=== PATIENT | male | born 1980 | race Caucasian/White ===

== ENCOUNTER 2017-12-08 15:25 | Emergency (ER) | payer SELFPAY ==
[2017-12-08] MEDS ORDERED: ASPIRIN 81 MG CHEWABLE TABLET ONE (16:10)
--- NOTE | 2017-12-08 16:16 | RAD REPORT ---
EXAM DESCRIPTION: RAD - Chest Single View - 12/08/2017 4:05 pm CLINICAL HISTORY: Shortness of breath. COMPARISON: 01/21/2014 FINDINGS: Portable technique limits examination quality. The lungs are grossly clear. The heart is normal in size. No displaced fractures. IMPRESSION: No acute intrathoracic process suspected.
[2017-12-08] MEDS ORDERED: NA CHLORIDE 0.9% 1,000 ML ONE (16:18)
[2017-12-08] MEDS ORDERED: ALBUTEROL 2.5 MG/3 ML NEB SOL ONE (16:18)
[2017-12-08 16:25] LABS: Absolute Lymphocytes (CBC) 2.2 K/uL (0.7-4.9); Absolute Monocytes 0.3 K/uL (0.1-1.3); Absolute Neutrophil 4.5 K/uL (1.8-8.0); Basophils % 1.1 % (0-1.3); Eosinophils % 3.5 % (0-4.4); Hematocrit 47.8 % (39.6-49.0); Lymphocytes % 29.9 % (15.3-44.8); MCH 30.7 pg (27.0-35.0); MCV 92.2 fL (80-100); MPV 8.8 fL (7.6-11.3); Monocytes % 4.7 % (3.3-12.3); RBC Red Blood Cell Count 5.19 M/uL (4.33-5.43)
[2017-12-08 16:28] LABS: Protime INR 1.03
[2017-12-08 16:39] LABS: CKMB Creatine Kinase MB 2.4 ng/ml (0.3-4.0)
[2017-12-08 16:47] LABS: Potassium 3.8 mEq/L (3.6-5.0)
[2017-12-08 16:53] LABS: Bilirubin Direct 0.1 mg/dL (0-0.2); Bilirubin Total 0.7 mg/dL (0.3-1.2); Magnesium 1.8 mg/dL (1.8-2.5); Protein, Total 6.9 g/dL (6.0-8.3)
--- NOTE | 2017-12-08 18:42 | ER ---
Nurse's Notes [facility] Name: Jae Heredia Age: 37 yrs Sex: Male : 1980 Arrival Date: 12/08/2017 Time: 15:26 Bed 8 Private MD: Diagnosis: Elevated blood-pressure reading, without diagnosis of hypertension;Other chest pain;Shortness of breath Presentation: 12/08 15:31 Presenting complaint: Patient states: Patient checked his blood pressure at [facility] and noticed it was high. Patient than began sweating and feeling shaky and diaphoretic. Transition of care: patient was not received from another setting of care. Onset of symptoms was December 08, 2017. Care prior to arrival: None. 15:31 Method Of Arrival: Ambulatory 15:31 Acuity: KELLIE 3 Triage Assessment: 15:33 General: Appears in no apparent distress. comfortable, Behavior is cooperative, aj appropriate for age, anxious. Pain: Complains of pain in chest Pain currently is 8 out of 10 on a pain scale. Neuro: Level of Consciousness is awake, alert, obeys commands, Oriented to person, place, time, situation. Cardiovascular: Reports chest pain, Capillary refill < 3 seconds in bilateral fingers Patient's skin is warm and dry. Respiratory: Airway is patent Respiratory effort is even, unlabored, Respiratory pattern is regular, symmetrical. Derm: Skin is intact, is healthy with good turgor, Skin is pink, warm \T\ dry. normal. Historical: - Allergies: 15:33 No Known Allergies; aj - Home Meds: 15:33 None [Active]; aj - PMHx: 15:33 None; - PSHx: 15:33 Right wrist; aj - Immunization history:: Adult Immunizations up to date. - Social history:: Smoking status: Patient uses tobacco products, smokes two packs cigarettes per day. Screenin:40 Abuse screen: Denies threats or abuse. Denies injuries from another. Nutritional sg screening: No deficits noted. Tuberculosis screening: No symptoms or risk factors identified. Never had TB. Fall Risk None identified. Assessment: 15:40 General: Appears in no apparent distress. comfortable, well groomed, well developed, sg well nourished, Behavior is calm, cooperative, appropriate for age. Pain: Denies pain. Neuro: Level of Consciousness is awake, alert, obeys commands, Oriented to person, place, time, Research Rn Spec are equal bilaterally Moves all extremities. Full function Speech is normal. Cardiovascular: Reports chest tightness and weakness Capillary refill is brisk in bilateral fingers Patient's skin is warm and dry. Respiratory: Airway is patent Respiratory effort is even, unlabored, Respiratory pattern is regular, symmetrical. GI: No signs and/or symptoms were reported involving the gastrointestinal system. : No signs and/or symptoms were reported regarding the genitourinary system. EENT: No deficits noted. No signs and/or symptoms were reported regarding the EENT system. Derm: Skin is pink, warm \T\ dry. Rash noted that is red, on to face. Musculoskeletal: Circulation, motion, and sensation intact. Capillary refill is brisk, in bilateral fingers. Range of motion: intact in all extremities, Swelling absent. 15:50 Pain: Pain does not radiate. sg 18:10 Reassessment: Patient appears in no apparent distress at this time. Patient and/or sg family updated on plan of care and expected duration. Pain level reassessed. Patient is alert, oriented x 3, equal unlabored respirations, skin warm/dry/pink. pt requesting DC to home, Juan M to update pt on vs and the need for repeat tests prior to dc to home, pt stated understanding, but refusing the repeat testing at this time Patient denies pain at this time. Patient states feeling better. Vital Signs: 15:33 BP 158 / 102; Pulse 102; Resp 19; Temp 98.3; Pulse Ox 96% on R/A; Weight 127.01 kg; aj Height 6 ft. 3 in. (190.50 cm); Pain 8/10; 16:35 BP 142 / 90 RA Sitting; Pulse 100 MON; sg 16:38 BP 139 / 92 LA Sitting; Pulse 99; Resp 17; Pulse Ox 96% on R/A; sg 15:33 Body Mass Index 35.00 (127.01 kg, 190.50 cm) aj ED Course: 15:26 Patient arrived in ED. as 15:32 Triage completed. aj 15:33 Arm band placed on left wrist. Patient placed in an exam room. aj 15:36 Silvestre Gruber PA is PHCP. cp 15:37 Eyal Prado MD is Attending Physician. cp 15:40 Patient has correct armband on for positive identification. Bed in low position. Call sg light in reach. Side rails up X2. 15:41 No provider procedures requiring assistance completed. sg 15:44 Jeffery Castaneda, RN is Primary Nurse. sg 16:01 X-ray completed. Portable x-ray completed in exam room. Patient tolerated procedure bb2 well. 16:03 XRAY Chest (1 view) In Process Unspecified. EDMS 16:07 EKG done, by lidar technician. reviewed by Silvestre MACHADO. at1 16:15 Inserted saline lock: 20 gauge in right antecubital area, using aseptic technique. sg Blood collected. 18:30 IV discontinued, intact, bleeding controlled, No redness/swelling at site. Pressure sg dressing applied, IV dc'd by demonstrator sewing techniqueslayo Borden. 18:42 Jose Hernandez MD is Referral Physician. cp Administered Medications: 15:58 Drug: Aspirin Chewable Tablet 324 mg Route: PO; sg 16:07 Drug: NS 0.9% 1000 ml Route: IV; Rate: 1 bolus; Site: right antecubital; sg 16:08 Drug: Albuterol 2.5 mg Route: Inhalation; sg Outcome: 18:39 AMA AMA form signed sg 18:39 Condition: good 18:39 Instructed on discharge instructions. 18:54 Patient left the ED. sg Signatures: Dispatcher [employer] EDMS Jeffery Castaneda RN RN sg Myers, Amanda, RN RN aj Martinez, Amelia as gonzales, Amanda, [employer] EKG Tat1 Silvestre Gruber PA PA cp Franci Cisneros bb2
--- NOTE | 2017-12-08 18:42 | EDPHYS ---
Physician Documentation [facility] Name: Jae Heredia Age: 37 yrs Sex: Male : 1980 Arrival Date: 12/08/2017 Time: 15:26 Bed 8 Private MD: ED Physician Eyal Prado HPI: 12/08 15:53 This 37 yrs old Male presents to ER via Ambulatory with complaints of Chest cp Tightness, High Blood Pressure, Weakness. 15:55 The patient has shortness of breath with light activity. cp 15:55 Onset: The symptoms/episode began/occurred 2 week(s) ago. Duration: The symptoms are cp continuous. Associated signs and symptoms: Pertinent positives: chest tightness started today and elevated blood pressure, Pertinent negatives: non-productive cough, diaphoresis, dizziness, fever. Severity of symptoms: in the emergency department the symptoms are unchanged. Historical: - Allergies: 15:33 No Known Allergies; aj - Home Meds: 15:33 None [Active]; aj - PMHx: 15:33 None; aj - PSHx: 15:33 Right wrist; aj - Immunization history:: Adult Immunizations up to date. - Social history:: Smoking status: Patient uses tobacco products, smokes two packs cigarettes per day. ROS: 16:00 Constitutional: Negative for body aches, chills, fever, poor PO intake. cp 16:00 Eyes: Negative for injury, pain, redness, and discharge. cp 16:00 ENT: Negative for drainage from ear(s), ear pain, sore throat, difficulty swallowing, difficulty handling secretions. 16:00 Cardiovascular: Positive for chest tightness, Negative for edema, palpitations. 16:00 Respiratory: Positive for shortness of breath, Negative for cough. 16:00 Abdomen/GI: Negative for abdominal pain, vomiting, diarrhea, constipation, black/tarry stool, rectal bleeding. 16:00 Back: Negative for pain at rest, pain with movement, radiated pain. 16:00 Skin: Negative for cellulitis, rash. 16:00 Neuro: Negative for altered mental status, dizziness, headache, syncope, near syncope, weakness. 16:00 All other systems are negative. Exam: 15:50 ECG was reviewed by the Attending Physician. cp 16:05 Constitutional: The patient appears in no acute distress, alert, awake, cp non-diaphoretic, non-toxic, well developed, well nourished. 16:05 Head/Face: Normocephalic, atraumatic. Eyes: Pupils equal round and reactive to light, cp extra-ocular motions intact. Lids and lashes normal. Conjunctiva and sclera are non-icteric and not injected. Cornea within normal limits. Periorbital areas with no swelling, redness, or edema. ENT: Nares patent. No nasal discharge, no septal abnormalities noted. Tympanic membranes are normal and external auditory canals are clear. Oropharynx with no redness, swelling, or masses, exudates, or evidence of obstruction, uvula midline. Mucous membranes moist. Neck: Trachea midline, no thyromegaly or masses palpated, and no cervical lymphadenopathy. Supple, full range of motion without nuchal rigidity, or vertebral point tenderness. No Meningismus. Chest/axilla: Normal chest wall appearance and motion. Nontender with no deformity. No lesions are appreciated. 16:05 Cardiovascular: Rate: tachycardic, Rhythm: regular, Pulses: Pulses are 2+ in right radial artery and left radial artery. Edema: is not appreciated, JVD: is not appreciated. 16:05 Respiratory: the patient does not display signs of respiratory distress, Respirations: normal, no use of accessory muscles, no retractions, no splinting, no tachypnea, labored breathing, is not present, Breath sounds: bronchial sounds, are not appreciated, decreased breath sounds, are not appreciated, stridor, is not appreciated, wheezing: that is mild, is heard diffusely. 16:05 Abdomen/GI: Inspection: abdomen appears normal, Bowel sounds: active, all quadrants, Palpation: abdomen is soft and non-tender, in all quadrants, rebound tenderness, is not appreciated, voluntary guarding, is not appreciated, involuntary guarding, is not appreciated. 16:05 Back: pain, is absent, ROM is normal. 16:05 Skin: cellulitis, is not appreciated, no rash present. 16:05 Neuro: Orientation: to person, place \T\ time. Mentation: is normal, Cerebellar function: is grossly normal, Motor: is normal, Sensation: no obvious gross deficits. Vital Signs: 15:33 BP 158 / 102; Pulse 102; Resp 19; Temp 98.3; Pulse Ox 96% on R/A; Weight 127.01 kg; aj Height 6 ft. 3 in. (190.50 cm); Pain 8/10; 16:35 BP 142 / 90 RA Sitting; Pulse 100 MON; sg 16:38 BP 139 / 92 LA Sitting; Pulse 99; Resp 17; Pulse Ox 96% on R/A; sg 15:33 Body Mass Index 35.00 (127.01 kg, 190.50 cm) aj MDM: 15:43 Patient medically screened. cp 16:00 The patient's pulmonary embolism risk score was calculated as follows: the patients cp heart rate is greater than 100 beats per minute (1.5 Pts). 16:00 Differential diagnosis: asthma, Bronchitis CHF exacerbation, Chronic Obstructive cp Pulmonary Disease Myocardial Infarction pneumonia, pulmonary edema, Pulmonary Embolism Unstable Angina. 17:20 Data reviewed: vital signs, nurses notes, lab test result(s), EKG, radiologic studies, cp plain films. 17:20 Test interpretation: by ED physician or midlevel provider: ECG, plain radiologic cp studies. 18:40 Refusal of service: The patient/guardian displays adequate decision making capability cp and despite a detailed discussion of alternatives, benefits, risks, and consequences refuses: repeat 4 hr EKG and troponin level. 12/08 15:47 Order name: Basic Metabolic Panel; Complete Time: 17:13 cp 12/08 17:13 Interpretation: Normal except: CL 100; GLUC 238; CRE 1.31; GFR 61. cp 12/08 15:47 Order name: BNP; Complete Time: 17:13 cp 12/08 15:47 Order name: CBC with Diff; Complete Time: 17:13 cp 12/08 15:47 Order name: Ckmb; Complete Time: 17:13 cp 12/08 15:47 Order name: CPK; Complete Time: 17:13 cp 12/08 15:47 Order name: LFT's; Complete Time: 17:13 cp 12/08 15:47 Order name: Magnesium; Complete Time: 17:13 cp 12/08 15:47 Order name: PT-INR; Complete Time: 17:13 cp 12/08 15:47 Order name: Ptt, Activated; Complete Time: 17:13 cp 12/08 15:47 Order name: Troponin (emerg Dept Use Only); Complete Time: 17:13 cp 12/08 17:14 Interpretation: TROPED < 0.03; Reviewed. cp 12/08 15:47 Order name: XRAY Chest (1 view); Complete Time: 17:13 12/08 15:47 Order name: EKG; Complete Time: 15:48 12/08 15:47 Order name: Cardiac monitoring; Complete Time: 17:17 12/08 15:47 Order name: EKG - Nurse/Tech; Complete Time: 17:17 12/08 15:47 Order name: IV Saline Lock; Complete Time: 17:17 12/08 15:47 Order name: Labs collected and sent; Complete Time: 17:17 12/08 15:47 Order name: O2 Per Protocol; Complete Time: 15:49 cp 12/08 15:47 Order name: O2 Sat Monitoring; Complete Time: 15:49 cp EC:50 Rate is 98 beats/min. Rhythm is regular. IA interval is normal. QRS interval is normal. cp QT interval is normal. No ST changes noted. Interpreted by me. Reviewed by me. Administered Medications: 15:58 Drug: Aspirin Chewable Tablet 324 mg Route: PO; sg 16:07 Drug: NS 0.9% 1000 ml Route: IV; Rate: 1 bolus; Site: right antecubital; sg 16:08 Drug: Albuterol 2.5 mg Route: Inhalation; sg Disposition: 12/08/17 18:42 Patient has left against medical advice. Impression: Elevated blood-pressure reading, without diagnosis of hypertension, Other chest pain, Shortness of breath. - Patients states they are going to Home. - Condition is Stable. Follow up: Jose Hernandez MD; When: 2 - 3 days; Reason: Recheck today's complaints. - Problem is new. - Symptoms have improved. Addendum: 12/10/2017 06:22 Co-signature as Attending Physician, Eyal Prado MD. g s Signatures: Dispatcher [employer] EDMS Jeffery Castaneda RN RN sg Myers, Amanda, RN RN aj Page, Corey, PA PA Eyal Prado MD MD Corrections: (The following items were deleted from the chart) 12/08 16:37 16:09 Recheck B/P ordered. [facility] 12/09 17:16 12/08 18:05 Refusal of service: The patient/guardian displays adequate decision making cp capability and despite a detailed discussion of alternatives, benefits, risks, and consequences refuses: repeat EKG and troponin testing, cp
--- NOTE | 2017-12-11 13:02 | EKG ---
Test Date: 2017-12-08 Test Time: 15:43:18 Curtain Stitcher: COLEEN MEASUREMENT RESULTS: Intervals: Rate: 98 IN: 156 QRSD: 96 QT: 344 QTc: 439 Dell: P: 41 IN: 156 QRS: 69 T: 44 INTERPRETIVE STATEMENTS: Normal sinus rhythm Normal ECG Compared to ECG 01/21/2014 09:47:30 No significant changes Electronically Signed On 12-11-17 13:01:20 CDT by Jose Hernandez
== END 2017-12-08 18:54 | disposition left against medical advice (07) ==
LOC: ER 15:25
DX: R07.89 Other chest pain (principal); R03.0 Elevated blood-pressure reading, without diagnosis of hypertension; F17.210 Nicotine dependence, cigarettes, uncomplicated
CPT/HCPCS: 36415; 71045; 80048; 80076; 82550; 82553; 83735; 83880; 84484; 85025; 85610; 85730; 93005; 99284; J7030

== ENCOUNTER 2018-04-07 17:27 | Emergency (ER) | payer SELFPAY ==
[2018-04-07] MEDS ORDERED: ALBUTEROL 2.5 MG/3 ML NEB SOL ONE (18:28)
[2018-04-07] MEDS ORDERED: METHYLPREDNISOLONE 125 MG INJ ONE (18:28)
[2018-04-07] MEDS ORDERED: IPRATROPIUM BROM 0.5MG/2.5ML ONE (18:29)
[2018-04-07] MEDS ORDERED: ASPIRIN 81 MG CHEWABLE TABLET ONE (18:29)
[2018-04-07 18:47] LABS: Absolute Lymphocytes (CBC) 2.9 K/uL (0.7-4.9); Absolute Monocytes 0.5 K/uL (0.1-1.3); Absolute Neutrophil 4.8 K/uL (1.8-8.0); Basophils % 0.9 % (0-1.3); Hematocrit 46.5 % (39.6-49.0); Lymphocytes % 33.4 % (15.3-44.8); MCH 31.8 pg (27.0-35.0); MCV 94.4 fL (80-100); Monocytes % 5.5 % (3.3-12.3); RBC Red Blood Cell Count 4.93 M/uL (4.33-5.43)
[2018-04-07 19:05] LABS: Albumin 3.9 g/dL (3.4-5.0); Bilirubin Direct 0.1 mg/dL (0-0.2); Bilirubin Total 0.4 mg/dL (0.2-1.0); Magnesium 2.3 mg/dL (1.8-2.4); Potassium 4.1 mmol/L (3.5-5.1); Protein, Total 7.5 g/dL (6.4-8.2)
--- NOTE | 2018-04-07 19:45 | EDPHYS ---
Physician Documentation [facility] Name: Jae Heredia Age: 37 yrs Sex: Male : 1980 Arrival Date: 04/07/2018 Time: 17:31 Bed 20 Private MD: None, None ED Physician Silvestre Castañeda HPI: 04/07 18:23 This 37 yrs old Male presents to ER via Ambulatory with complaints of cp Breathing Difficulty. 18:23 The patient has shortness of breath at rest. Onset: The symptoms/episode began/occurred cp 1 hour(s) ago. 18:23 Duration: The symptoms are continuous, and are steadily getting worse. The patient's cp shortness of breath is aggravated by light activity, talking. Associated signs and symptoms: Pertinent positives: non-productive cough, Pertinent negatives: chest pain, dizziness, fever, visual changes, vomiting. Severity of symptoms: in the emergency department the symptoms are unchanged despite home interventions. The patient has not experienced similar symptoms in the past. Historical: - Allergies: 17:51 No Known Allergies; aj1 - Home Meds: 17:51 None [Active]; aj1 - PMHx: 17:51 None; aj1 - PSHx: 17:51 wrist surgery; aj1 - Immunization history:: Flu vaccine is not up to date. - Social history:: Smoking status: Patient uses tobacco products, smokes one-half pack cigarettes per day. - Ebola Screening: : Patient denies travel to an Ebola-affected area in the 21 days before illness onset. ROS: 18:30 Constitutional: Negative for body aches, chills, fever, poor PO intake. cp 18:30 Eyes: Negative for injury, pain, redness, and discharge. cp 18:30 ENT: Negative for drainage from ear(s), ear pain, sore throat, difficulty swallowing, difficulty handling secretions. 18:30 Cardiovascular: Negative for chest pain, edema, palpitations. 18:30 Respiratory: Positive for cough, with no reported sputum, shortness of breath. 18:30 Abdomen/GI: Negative for abdominal pain, nausea, vomiting, and diarrhea, black/tarry stool, rectal bleeding. 18:30 Back: Negative for pain at rest, pain with movement, radiated pain. 18:30 : Negative for urinary symptoms. 18:30 Skin: Negative for cellulitis, rash. 18:30 Neuro: Negative for altered mental status, dizziness, syncope, near syncope, weakness. 18:30 All other systems are negative. Exam: 18:00 ECG was reviewed by the Attending Physician. cp 18:35 Constitutional: The patient appears in no acute distress, alert, awake, cp non-diaphoretic, non-toxic, well developed, well nourished. 18:35 Head/Face: Normocephalic, atraumatic. cp 18:35 Eyes: Periorbital structures: appear normal, Conjunctiva: normal, no exudate, no injection, Lids and lashes: appear normal, bilaterally. 18:35 ENT: External ear(s): are unremarkable, Ear canal(s): are normal, clear, TM's: dullness, bilaterally, Nose: is normal, Mouth: Lips: moist, Oral mucosa: moist, Posterior pharynx: is normal, airway is patent, no erythema, no exudate, Voice: is normal. 18:35 Neck: ROM/movement: is normal, is supple, without pain, no range of motions limitations, no nuchal rigidity. 18:35 Chest/axilla: Inspection: normal, Palpation: is normal, no crepitus, no tenderness. 18:35 Cardiovascular: Rate: normal, Rhythm: regular. 18:35 Respiratory: the patient does not display signs of respiratory distress, Respirations: labored breathing, that is mild, intercostal retractions, are absent, shallow respirations, are not present, tachypnea, is not appreciated, Breath sounds: bronchial sounds, that are mild, are heard diffusely, decreased breath sounds, that are mild, throughout, stridor, is not appreciated, wheezing: is not appreciated. 18:35 Abdomen/GI: Inspection: abdomen appears normal, Bowel sounds: active, all quadrants, Palpation: abdomen is soft and non-tender, in all quadrants. 18:35 Back: pain, is absent, ROM is normal. 18:35 Skin: cellulitis, is not appreciated, no rash present. 18:35 Neuro: Orientation: to person, place \T\ time. Mentation: lucid, able to follow commands, Cerebellar function: is grossly normal, Motor: moves all fours, strength is normal, Sensation: no obvious gross deficits. Vital Signs: 17:51 BP 138 / 80; Pulse 90; Resp 20; Temp 97.4; Pulse Ox 98% on R/A; Weight 127.01 kg (R); aj1 Height 6 ft. 3 in. (190.50 cm) (R); Pain 8/10; 18:57 BP 125 / 86; Pulse 83; Resp 16; Pulse Ox 94% on R/A; Pain 0/10; em 20:00 BP 139 / 84; Pulse 82; Resp 18; Pulse Ox 96% on R/A; Pain 0/10; lp1 17:51 Body Mass Index 35.00 (127.01 kg, 190.50 cm) aj1 MDM: 18:12 Patient medically screened. cp 19:00 Differential diagnosis: asthma, Bronchitis CHF exacerbation, pneumonia, Pneumothorax cp pulmonary edema, Pulmonary Embolism reactive airway disease, Unstable Angina. 19:44 Refusal of service: The patient/guardian displays adequate decision making capability cp and despite a detailed discussion of alternatives, benefits, risks, and consequences refuses: all X-rays. 19:45 Data reviewed: vital signs, nurses notes, lab test result(s), EKG. cp 19:45 Test interpretation: by ED physician or midlevel provider: ECG. Counseling: I had a cp detailed discussion with the patient and/or guardian regarding: the historical points, exam findings, and any diagnostic results supporting the discharge/admit diagnosis, lab results, the need for outpatient follow up, a family practitioner. Response to treatment: the patient's symptoms have markedly improved after treatment, VSS. Patient reports he is feeling better and requests to be discharged. 04/07 18:21 Order name: Basic Metabolic Panel; Complete Time: 19:26 04/07 18:21 Order name: CBC with Diff; Complete Time: 19:26 04/07 18:21 Order name: CPK; Complete Time: 19:26 04/07 18:21 Order name: LFT's; Complete Time: 19:26 04/07 18:21 Order name: Magnesium; Complete Time: 19:26 04/07 18:21 Order name: NT PRO-BNP; Complete Time: 19:26 04/07 18:02 Order name: EKG Electrocardiogram EDKY 04/07 18:21 Order name: Troponin (emerg Dept Use Only); Complete Time: 19:26 04/07 18:21 Order name: Cardiac monitoring; Complete Time: 18:34 cp 04/07 18:21 Order name: EKG - Nurse/Tech; Complete Time: 18:35 cp 04/07 18:21 Order name: IV Saline Lock; Complete Time: 18:35 cp 04/07 18:21 Order name: Labs collected and sent; Complete Time: 18:35 cp 04/07 18:21 Order name: O2 Per Protocol; Complete Time: 18:35 cp 04/07 18:21 Order name: O2 Sat Monitoring; Complete Time: 18:35 cp EC:00 Rate is 81 beats/min. Rhythm is regular. OH interval is normal. QRS interval is normal. cp QT interval is normal. No ST changes noted. Interpreted by me. Reviewed by me. Administered Medications: 18:34 Drug: Aspirin Chewable Tablet 324 mg Route: PO; em 18:56 Follow up: Response: No adverse reaction em 18:35 Drug: Albuterol 2.5 mg Route: Inhalation; em 18:57 Follow up: Response: No adverse reaction em 18:35 Drug: AtroVENT Aerosol 0.5 mg Route: Inhalation; em 18:57 Follow up: Response: No adverse reaction em 18:36 Drug: SOLU-Medrol 125 mg Route: IVP; Site: right antecubital; iw 18:56 Follow up: Response: No adverse reaction em Disposition: 04/07/18 19:45 Discharged to Home. Impression: Shortness of breath. - Condition is Stable. - Discharge Instructions: Shortness of Breath, Aspirin and Your Heart. - Prescriptions for Prednisone 20 mg Oral Tablet - take 2 tablet by ORAL route once daily for 5 days; 10 tablet. Albuterol Sulfate 90 mcg/actuation - inhale 1-2 puff by INHALATION route every 4-6 hours; 1 Inhaler. - Medication Reconciliation Form, Thank You Letter, Antibiotic Education, Prescription Opioid Use form. - Follow up: Private Physician; When: 2 - 3 days; Reason: Recheck today's complaints. - Problem is new. - Symptoms have improved. Addendum: 04/10/2018 10:33 Co-signature as Attending Physician, Silvestre Castañeda MD I agree with the assessment and c sweet plan of care. Signatures: Dispatcher [employer] Yulia Warren RN RN aj1 Silvestre Castañeda MD MD cha Munoz, Edgar, POINT OF CARE SPECIALIST POINT OF CARE SPECIALIST Radha Quinn, RN RN iw Philly Yan RN RN lp1 Silvestre Gruber, JEANNETTE PA cp Corrections: (The following items were deleted from the chart) 04/07 19:45 19:27 Chest Pa And Lat (2 Views)+[email or web address] ordered. EDMS EDMS 20:15 19:45 04/07/2018 19:45 Discharged to Home. Impression: Shortness of breath. Condition lp1 is Stable. Forms are Medication Reconciliation Form, Thank You Letter, Antibiotic Education, Prescription Opioid Use. Follow up: Private Physician; When: 2 - 3 days; Reason: Recheck today's complaints. Problem is new. Symptoms have improved. cp
--- NOTE | 2018-04-07 19:45 | ER ---
Nurse's Notes [facility] Name: Jae Heredia Age: 37 yrs Sex: Male : 1980 Arrival Date: 04/07/2018 Time: 17:31 Bed 20 Private MD: None, None Diagnosis: Shortness of breath Presentation: 04/07 17:48 Presenting complaint: Patient states: Reports chest tightness and shortness of breath aj1 for the past hour. Reports cough Denies nasal congestion, fever, palpitations. Breath sounds CTA. Transition of care: patient was not received from another setting of care. Onset of symptoms was April 07, 2018 at 16:50. Risk Assessment: Do you want to hurt yourself or someone else? Patient reports no desire to harm self or others. Initial Sepsis Screen: Does the patient meet any 2 criteria? HR > 90 bpm. No. Patient's initial sepsis screen is negative. Does the patient have a suspected source of infection? No. Patient's initial sepsis screen is negative. Care prior to arrival: None. 17:48 Method Of Arrival: Ambulatory aj1 17:48 Acuity: KELLIE 3 aj1 Triage Assessment: 17:51 General: Appears in no apparent distress. comfortable, Behavior is calm, cooperative, aj1 appropriate for age. Pain: Complains of pain in mid-sternal area Pain does not radiate. Pain currently is 8 out of 10 on a pain scale. Quality of pain is described as tightness Pain began 1 hour ago. Neuro: Level of Consciousness is awake, alert, obeys commands, Gait is steady, Speech is normal. Cardiovascular: Reports chest pain, shortness of breath, Denies palpitations, syncope, vomiting, Heart tones S1 S2 present Patient's skin is warm and dry. Rhythm is regular Chest pain quality is tightness is located in substernal area. Respiratory: Reports shortness of breath cough that is dry, Airway is patent Respiratory effort is even, unlabored, Respiratory pattern is regular, symmetrical, Breath sounds are clear bilaterally. Onset: The symptoms/episode began/occurred just prior to arrival, the patient has mild shortness of breath. Historical: - Allergies: 17:51 No Known Allergies; aj1 - Home Meds: 17:51 None [Active]; aj1 - PMHx: 17:51 None; aj1 - PSHx: 17:51 wrist surgery; aj1 - Immunization history:: Flu vaccine is not up to date. - Social history:: Smoking status: Patient uses tobacco products, smokes one-half pack cigarettes per day. - Ebola Screening: : Patient denies travel to an Ebola-affected area in the 21 days before illness onset. Screenin:43 Abuse screen: Denies threats or abuse. Nutritional screening: No deficits noted. em Tuberculosis screening: No symptoms or risk factors identified. Fall Risk None identified. Assessment: 18:00 General: Appears in no apparent distress. comfortable, Behavior is calm, cooperative. em Pain: Denies pain. Neuro: Level of Consciousness is awake, alert, obeys commands, Oriented to person, place, time, situation. Cardiovascular: Reports shortness of breath, Denies chest pain, Heart tones S1 S2 present Capillary refill < 3 seconds Patient's skin is warm and dry. Rhythm is regular. Respiratory: Reports shortness of breath Airway is patent Respiratory effort is even, unlabored, Respiratory pattern is regular, symmetrical, Breath sounds are clear bilaterally. Onset: The symptoms/episode began/occurred suddenly. GI: Abdomen is round non-distended. : No signs and/or symptoms were reported regarding the genitourinary system. EENT: Denies sore throat. Derm: Skin is intact, Skin is pink, warm \T\ dry. Musculoskeletal: Range of motion: intact in all extremities. 18:15 Reassessment: Patient appears in no apparent distress at this time. I agree with the iw above assessment by Gerry Crawford LVN. 18:56 Reassessment: Patient appears in no apparent distress at this time. Patient and/or em family updated on plan of care and expected duration. Pain level reassessed. Patient is alert, oriented x 3, equal unlabored respirations, skin warm/dry/pink. reports breathing treatment helped Patient states feeling better. Patient states symptoms have improved. 19:07 Reassessment: Patient states feeling better. Patient states symptoms have improved. lp1 General: Appears in no apparent distress. Respiratory: Airway is patent Respiratory effort is even, unlabored, Respiratory pattern is regular, Breath sounds are clear bilaterally. Denies shortness of breath. Vital Signs: 17:51 BP 138 / 80; Pulse 90; Resp 20; Temp 97.4; Pulse Ox 98% on R/A; Weight 127.01 kg (R); aj1 Height 6 ft. 3 in. (190.50 cm) (R); Pain 8/10; 18:57 BP 125 / 86; Pulse 83; Resp 16; Pulse Ox 94% on R/A; Pain 0/10; em 20:00 BP 139 / 84; Pulse 82; Resp 18; Pulse Ox 96% on R/A; Pain 0/10; lp1 17:51 Body Mass Index 35.00 (127.01 kg, 190.50 cm) aj1 ED Course: 17:31 Patient arrived in ED. jb7 17:31 None, None is Private Physician. jb7 17:51 Triage completed. aj1 17:51 Arm band placed on right wrist. Patient placed in waiting room, Patient notified of aj1 wait time. EKG completed in triage. Results shown to MD. 17:59 EKG done, by environmental services tech. reviewed by Silvestre Castañeda MD. sm3 18:13 Silvestre Gruber PA is PHCP. cp 18:14 Silvestre Castañeda MD is Attending Physician. cp 18:14 Gerry Crawford LVN is Primary Nurse. em 18:25 No provider procedures requiring assistance completed. Inserted saline lock: 20 gauge em in right antecubital area, using aseptic technique. Patient maintains SpO2 saturation greater than 95% on room air. 18:43 Patient has correct armband on for positive identification. Bed in low position. Call em light in reach. Side rails up X2. Adult w/ patient. 20:14 IV discontinued, No redness/swelling at site. Pressure dressing applied. lp1 Administered Medications: 18:34 Drug: Aspirin Chewable Tablet 324 mg Route: PO; em 18:56 Follow up: Response: No adverse reaction em 18:35 Drug: Albuterol 2.5 mg Route: Inhalation; em 18:57 Follow up: Response: No adverse reaction em 18:35 Drug: AtroVENT Aerosol 0.5 mg Route: Inhalation; em 18:57 Follow up: Response: No adverse reaction em 18:36 Drug: SOLU-Medrol 125 mg Route: IVP; Site: right antecubital; iw 18:56 Follow up: Response: No adverse reaction em Outcome: 19:45 Discharge ordered by MD. cp 20:14 Discharged to home ambulatory. lp1 20:14 Condition: good 20:14 Discharge instructions given to patient, Instructed on discharge instructions, follow up and referral plans. medication usage, Demonstrated understanding of instructions, follow-up care, medications, Prescriptions given X 2. 20:15 Patient left the ED. lp1 Signatures: Yulia Otto, RN RN aj1 Gerry Crawford, TEST DESK SUPERVISOR TEST DESK SUPERVISOR Radha Quinn RN RN iw Philly Yan RN RN lp1 Silvestre Gruber PA PA cp Bryant, Jason jb7 Carmella Sullivan 3
--- NOTE | 2018-04-08 07:18 | EKG ---
Test Date: 2018-04-07 Test Time: 17:54:06 Experimental Psychologist: ZACKERY MEASUREMENT RESULTS: Intervals: Rate: 81 OR: 166 QRSD: 92 QT: 352 QTc: 408 [place]: P: 35 OR: 166 QRS: 57 T: 45 INTERPRETIVE STATEMENTS: Normal sinus rhythm Normal ECG Compared to ECG 12/08/2017 15:43:18 No significant changes Electronically Signed On 04-08-18 07:17:21 CDT by Jose Hernandez
== END 2018-04-07 20:15 | disposition home or self-care (01) ==
LOC: ER 17:27
DX: R06.02 Shortness of breath (principal); F17.210 Nicotine dependence, cigarettes, uncomplicated
CPT/HCPCS: 36415; 80048; 80076; 82550; 83735; 83880; 84484; 85025; 93005; 96374; 99285; J2930

== ENCOUNTER 2018-09-13 09:16 | Emergency (ER) | payer SELFPAY ==
--- NOTE | 2018-09-13 09:48 | ER ---
Nurse's Notes [facility] Name: Jae Heredia Age: 38 yrs Sex: Male : 1980 Arrival Date: 09/13/2018 Time: 09:20 Bed 16 Private MD: None, None Diagnosis: Acute sinusitis Presentation: 09/13 09:29 Presenting complaint: Patient states: Sinus congestion x 2 weeks, frontal headache, hb body aches, and subjective fever x 2 days. Denies sore throat/cough/N/V/D. Transition of care: patient was not received from another setting of care. Resp Distress? No respiratory distress is noted at this time. Onset of symptoms was September 13, 2018. Risk Assessment: Do you want to hurt yourself or someone else? Patient reports no desire to harm self or others. Initial Sepsis Screen: Does the patient meet any 2 criteria? No. Patient's initial sepsis screen is negative. Does the patient have a suspected source of infection? No. Patient's initial sepsis screen is negative. Care prior to arrival: None. 09:29 Method Of Arrival: Ambulatory hb 09:29 Acuity: KELLIE 4 hb Historical: - Allergies: 09:32 No Known Allergies; hb - Home Meds: 09:32 None [Active]; hb - PMHx: 09:32 None; hb - PSHx: 09:32 Wrist - RIGHT; hb - Immunization history:: Adult Immunizations up to date. - Social history:: Smoking status: Patient uses tobacco products, smokes one-half pack cigarettes per day. - Ebola Screening: : No symptoms or risks identified at this time. Screenin:33 Abuse screen: Denies threats or abuse. Denies injuries from another. Nutritional hb screening: No deficits noted. Tuberculosis screening: No symptoms or risk factors identified. Fall Risk None identified. Assessment: 09:33 General: Appears in no apparent distress. Behavior is cooperative. Pain: Pain currently hb is 4 out of 10 on a pain scale. Neuro: Level of Consciousness is awake, alert, obeys commands, Oriented to person, place, time, situation. Cardiovascular: Heart tones S1 S2 present Capillary refill < 3 seconds Patient's skin is warm and dry. Respiratory: Airway is patent Trachea midline Respiratory effort is even, unlabored, Respiratory pattern is regular, symmetrical, Breath sounds are clear bilaterally. GI: No signs and/or symptoms were reported involving the gastrointestinal system. : No signs and/or symptoms were reported regarding the genitourinary system. EENT: No signs and/or symptoms were reported regarding the EENT system. Derm: Skin is intact, is healthy with good turgor, Skin is pink, warm \T\ dry. Musculoskeletal: No signs and/or symptoms reported regarding the musculoskeletal system. Vital Signs: 09:29 BP 148 / 100; Pulse 85; Resp 16; Temp 98.1(O); Pulse Ox 100% on R/A; Pain 4/10; hb ED Course: 09:20 Patient arrived in ED. sb2 09:21 None, None is Private Physician. sb2 09:28 Jacque Anderson, RN is Primary Nurse. hb 09:31 Triage completed. hb 09:32 Arm band placed on. hb 09:33 Patient has correct armband on for positive identification. Bed in low position. Call hb light in reach. Side rails up X 1. 09:34 Alyssia Multani FNP-C is [facility]. snw 09:34 Silvestre Castañeda MD is Attending Physician. snw 09:59 No provider procedures requiring assistance completed. Patient did not have IV access sv during this emergency room visit. Administered Medications: No medications were administered Outcome: 09:48 Discharge ordered by . snw 09:59 Discharged to home ambulatory. sv 09:59 Condition: stable 09:59 Discharge instructions given to patient, Instructed on discharge instructions, follow up and referral plans. medication usage, Demonstrated understanding of instructions, follow-up care, medications, Prescriptions given X 3. 09:59 Patient left the ED. sv Signatures: Marifer Christensen RN RN Alyssia Hall FNP-C [employer]-Cs[facility] Jacque Anderson RN RN Kylah Heredia sb2
--- NOTE | 2018-09-13 09:48 | EDPHYS ---
Physician Documentation [facility] Name: Jae Heredia Age: 38 yrs Sex: Male : 1980 Arrival Date: 09/13/2018 Time: 09:20 Bed 16 Private MD: None, None ED Physician Silvestre Castañeda HPI: 09/13 10:49 This 38 yrs old Male presents to ER via Ambulatory with complaints of snw Congestion, Fever. 10:49 Pt states for 1.5-2 weeks his nose and face have been congested, + low grade fever snw yesterday. Onset: The symptoms/episode began/occurred gradually, 2 week(s) ago. Severity of symptoms: At their worst the symptoms were moderate. It is unknown whether or not the patient has had similar symptoms in the past. The patient has not recently seen a physician. Historical: - Allergies: 09:32 No Known Allergies; hb - Home Meds: 09:32 None [Active]; hb - PMHx: 09:32 None; hb - PSHx: 09:32 Wrist - RIGHT; hb - Immunization history:: Adult Immunizations up to date. - Social history:: Smoking status: Patient uses tobacco products, smokes one-half pack cigarettes per day. - Ebola Screening: : No symptoms or risks identified at this time. ROS: 10:48 Constitutional: Negative for fever, chills, and weight loss, Eyes: Negative for injury, snw pain, redness, and discharge, ENT: Negative for injury and discharge, + sinus pain/congestion Neck: Negative for injury, pain, and swelling, Cardiovascular: Negative for chest pain, palpitations, and edema, Respiratory: Negative for shortness of breath, cough, wheezing, and pleuritic chest pain, Abdomen/GI: Negative for abdominal pain, nausea, vomiting, diarrhea, and constipation, Back: Negative for injury and pain, : Negative for injury, bleeding, discharge, and swelling, MS/Extremity: Negative for injury and deformity, Skin: Negative for injury, rash, and discoloration, Neuro: Negative for headache, weakness, numbness, tingling, and seizure. Exam: 10:16 Constitutional: This is a well developed, well nourished patient who is awake, alert, snw and in no acute distress. Head/Face: Normocephalic, atraumatic. Eyes: Pupils equal round and reactive to light, extra-ocular motions intact. Lids and lashes normal. Conjunctiva and sclera are non-icteric and not injected. Cornea within normal limits. Periorbital areas with no swelling, redness, or edema. Neck: Trachea midline, no thyromegaly or masses palpated, and no cervical lymphadenopathy. Supple, full range of motion without nuchal rigidity, or vertebral point tenderness. No Meningismus. Chest/axilla: Normal chest wall appearance and motion. Nontender with no deformity. No lesions are appreciated. Cardiovascular: Regular rate and rhythm with a normal S1 and S2. No gallops, murmurs, or rubs. Normal PMI, no JVD. No pulse deficits. Respiratory: Lungs have equal breath sounds bilaterally, clear to auscultation and percussion. No rales, rhonchi or wheezes noted. No increased work of breathing, no retractions or nasal flaring. Abdomen/GI: Soft, non-tender, with normal bowel sounds. No distension or tympany. No guarding or rebound. No evidence of tenderness throughout. Back: No spinal tenderness. No costovertebral tenderness. Full range of motion. Skin: Warm, dry with normal turgor. Normal color with no rashes, no lesions, and no evidence of cellulitis. MS/ Extremity: Pulses equal, no cyanosis. Neurovascular intact. Full, normal range of motion. Neuro: Awake and alert, GCS 15, oriented to person, place, time, and situation. Cranial nerves II-XII grossly intact. Motor strength 5/5 in all extremities. Sensory grossly intact. Cerebellar exam normal. Normal gait. Psych: Awake, alert, with orientation to person, place and time. Behavior, mood, and affect are within normal limits. 10:16 ENT: External ear(s): are unremarkable, TM's: erythema, that is moderate, on the right, Nose: is normal, Mouth: is normal, Posterior pharynx: erythema, that is moderate, Voice: is normal. Vital Signs: 09:29 BP 148 / 100; Pulse 85; Resp 16; Temp 98.1(O); Pulse Ox 100% on R/A; Pain 4/10; hb MDM: 09:37 Patient medically screened. [facility] 10:47 Data reviewed: vital signs, nurses notes. Data interpreted: Pulse oximetry: on room air snw is 100 %. Interpretation: normal. Counseling: I had a detailed discussion with the patient and/or guardian regarding: the historical points, exam findings, and any diagnostic results supporting the discharge/admit diagnosis, the presence of at least one elevated blood pressure reading (>120/80) during this emergency department visit, the need for outpatient follow up, to return to the emergency department if symptoms worsen or persist or if there are any questions or concerns that arise at home. Special discussion: I have referred the patient to see his PCP for further evaluation of high blood pressure. Based on the history and exam findings, there is no indication for further emergent testing or inpatient evaluation. I discussed with the patient/guardian the need to see the primary care provider for further evaluation of the symptoms. Administered Medications: No medications were administered Disposition: 15:03 Co-signature as Attending Physician, Silvestre Castañeda MD I agree with the assessment and blue plan of care. Disposition: 09/13/18 09:48 Discharged to Home. Impression: Acute sinusitis. - Condition is Stable. - Discharge Instructions: Hypertension, Sinusitis, Adult. - Prescriptions for Flonase Allergy Relief 50 mcg/actuation Nasal spray,suspension - inhale 2 spray by INTRANASAL route once daily; 1 bottle. Augmentin 875- 125 mg Oral Tablet - take 1 tablet by ORAL route every 12 hours for 10 days; 20 tablet. Zyrtec 10 mg Oral Tablet - take 1 tablet by ORAL route once daily As needed; 20 tablet. - Medication Reconciliation Form, Thank You Letter, Antibiotic Education, Prescription Opioid Use form. - Follow up: Private Physician; When: 2 - 3 days; Reason: Recheck today's complaints, Continuance of care, Re-evaluation by your physician. Follow up: Emergency Department; When: As needed; Reason: Worsening of condition. Signatures: Marifer Christensen RN RN sv Anderson, Corey, MD MD cha Therrien, Shelly, CHEMICAL ETCH OPERATOR-C CHEMICAL ETCH OPERATOR-Csnw Jacque Anderson RN RN Corrections: (The following items were deleted from the chart) 09:59 09:48 09/13/2018 09:48 Discharged to Home. Impression: Acute sinusitis. Condition is sv Stable. Forms are Medication Reconciliation Form, Thank You Letter, Antibiotic Education, Prescription Opioid Use. Follow up: Private Physician; When: 2 - 3 days; Reason: Recheck today's complaints, Continuance of care, Re-evaluation by your physician. Follow up: Emergency Department; When: As needed; Reason: Worsening of condition. lona
== END 2018-09-13 09:59 | disposition home or self-care (01) ==
LOC: ER 09:16
DX: J01.90 Acute sinusitis, unspecified (principal); F17.210 Nicotine dependence, cigarettes, uncomplicated
CPT/HCPCS: 99282

== ENCOUNTER 2018-10-02 08:42 | Inpatient (IN) | payer BC, SELFPAY ==
[2018-10-02] MEDS ORDERED: MORPHINE 4 MG/ML SYR ONE (09:22)
[2018-10-02] MEDS ORDERED: PANTOPRAZOLE 40 MG INJ ONE (09:23)
[2018-10-02] MEDS ORDERED: NA CHLORIDE 0.9% 1,000 ML ONE (09:23)
[2018-10-02] MEDS ORDERED: ONDANSETRON 4 MG/2 ML VIAL ONE (09:23)
[2018-10-02 09:36] LABS: Absolute Lymphocytes (CBC) 1.8 K/uL (0.7-4.9); Absolute Monocytes 0.3 K/uL (0.1-1.3); Absolute Neutrophil 4.4 K/uL (1.8-8.0); Basophils % 0.6 % (0-1.3); Eosinophils % 3.2 % (0-4.4); Lymphocytes % 27.2 % (15.3-44.8); MPV 8.8 fL (7.6-11.3); Monocytes % 4.4 % (3.3-12.3); RBC Red Blood Cell Count 5.22 M/uL (4.33-5.43)
[2018-10-02 09:53] LABS: Albumin 3.7 g/dL (3.4-5.0); Bilirubin Direct 0.1 mg/dL (0-0.2); Bilirubin Total 0.4 mg/dL (0.2-1.0); Potassium 4.5 mmol/L (3.5-5.1); Protein, Total 6.8 g/dL (6.4-8.2)
--- NOTE | 2018-10-02 11:00 | RAD REPORT ---
EXAM DESCRIPTION: US - Abdomen Exam Limited - 10/02/2018 10:55 am CLINICAL HISTORY: ABD PAIN COMPARISON: No comparisons FINDINGS: The gallbladder demonstrates no gallstones. No pericholecystic fluid or gallbladder wall t hickening. The common bile duct is normal measuring 4 mm. The liver demonstrates fatty liver. IMPRESSION: Unremarkable examination.
--- NOTE | 2018-10-02 11:17 | RAD REPORT ---
EXAM DESCRIPTION: CTAbdomen Pelvis W Contrast - 10/02/2018 11:08 am CLINICAL HISTORY: Abdominal pain. ABD PAIN COMPARISON: Abdomen Pelvis W Contrast dated 10/21/2017; Abdomen Exam Limited dated 10/02/2018 TECHNIQUE: Biphasic CT imaging of the abdomen and pelvis was performed with 100 ml non-ionic IV cont rast. All CT scans are performed using dose optimization technique as appropriate and may include automated exposure control or mA/KV adjustment according to patient size. FINDINGS: The lung bases are clear. The liver demonstrates diffuse fatty infiltration. The spleen, pancreas, adrenal glands and kidneys a re within normal limits. No bowel obstruction, free air, free fluid or abscess. A short segment of the sigmoid colon in the le ft lower quadrant measuring 3 cm shows mild surrounding pericolonic inflammatory change. The appendix is normal. No evidence of significant lymphadenopathy. No suspicious bony findings. Small fat containing inguinal hernias bilaterally. IMPRESSION: Short-segment early acute sigmoid diverticulitis suspected. No abscess.
--- NOTE | 2018-10-02 11:30 | EDPHYS ---
Physician Documentation [facility] Name: Jae Heredia Age: 38 yrs Sex: Male : 1980 Arrival Date: 10/02/2018 Time: 08:45 Bed 18 Private MD: ED Physician Silvestre Castañeda HPI: 10/02 09:07 This 38 yrs old Male presents to ER via Ambulatory with complaints of blue Abdominal Pain, Hemorrhoids. 09:07 The patient presents with abdominal pain in the upper abdomen, in the lower abdomen, blue abdominal distention in the upper abdomen, in the lower abdomen. Onset: The symptoms/episode began/occurred 2 day(s) ago. The symptoms do not radiate. Associated signs and symptoms: Pertinent positives: nausea. Modifying factors: The symptoms are alleviated by nothing. Severity of pain: At its worst the pain was mild moderate in the emergency department the pain is unchanged. The patient has experienced similar episodes in the past, a few times. Historical: - Allergies: 08:54 No Known Allergies; sv - PMHx: 08:54 None; sv - PSHx: 08:54 Wrist - RIGHT; sv - Immunization history:: Flu vaccine is not up to date. - Social history:: Smoking status: Patient uses tobacco products, smokes one pack cigarettes per day. - Ebola Screening: : No symptoms or risks identified at this time. - Family history:: not pertinent. ROS: 09:07 Constitutional: Negative for fever, chills, and weight loss, Eyes: Negative for injury, blue pain, redness, and discharge, ENT: Negative for injury, pain, and discharge, Neck: Negative for injury, pain, and swelling, Cardiovascular: Negative for chest pain, palpitations, and edema, Respiratory: Negative for shortness of breath, cough, wheezing, and pleuritic chest pain, Back: Negative for injury and pain, : Negative for injury, bleeding, discharge, and swelling, MS/Extremity: Negative for injury and deformity, Skin: Negative for injury, rash, and discoloration, Neuro: Negative for headache, weakness, numbness, tingling, and seizure, Psych: Negative for depression, anxiety, suicide ideation, homicidal ideation, and hallucinations, Allergy/Immunology: Negative for hives, rash, and allergies, Endocrine: Negative for neck swelling, polydipsia, polyuria, polyphagia, and marked weight changes, Hematologic/Lymphatic: Negative for swollen nodes, abnormal bleeding, and unusual bruising. 09:07 Abdomen/GI: Positive for Exam: 09:07 Constitutional: This is a well developed, well nourished patient who is awake, alert, blue and in no acute distress. Head/Face: Normocephalic, atraumatic. Eyes: Pupils equal round and reactive to light, extra-ocular motions intact. Lids and lashes normal. Conjunctiva and sclera are non-icteric and not injected. Cornea within normal limits. Periorbital areas with no swelling, redness, or edema. ENT: Nares patent. No nasal discharge, no septal abnormalities noted. Tympanic membranes are normal and external auditory canals are clear. Oropharynx with no redness, swelling, or masses, exudates, or evidence of obstruction, uvula midline. Mucous membranes moist. Neck: Trachea midline, no thyromegaly or masses palpated, and no cervical lymphadenopathy. Supple, full range of motion without nuchal rigidity, or vertebral point tenderness. No Meningismus. Chest/axilla: Normal chest wall appearance and motion. Nontender with no deformity. No lesions are appreciated. Cardiovascular: Regular rate and rhythm with a normal S1 and S2. No gallops, murmurs, or rubs. Normal PMI, no JVD. No pulse deficits. Respiratory: Lungs have equal breath sounds bilaterally, clear to auscultation and percussion. No rales, rhonchi or wheezes noted. No increased work of breathing, no retractions or nasal flaring. Back: No spinal tenderness. No costovertebral tenderness. Full range of motion. Male : Normal genitalia with no discharge or lesions. Skin: Warm, dry with normal turgor. Normal color with no rashes, no lesions, and no evidence of cellulitis. MS/ Extremity: Pulses equal, no cyanosis. Neurovascular intact. Full, normal range of motion. Neuro: Awake and alert, GCS 15, oriented to person, place, time, and situation. Cranial nerves II-XII grossly intact. Motor strength 5/5 in all extremities. Sensory grossly intact. Cerebellar exam normal. Normal gait. Psych: Awake, alert, with orientation to person, place and time. Behavior, mood, and affect are within normal limits. 09:07 Abdomen/GI: Inspection: distension, Bowel sounds: active, Palpation: mild abdominal tenderness, in the right upper quadrant, left upper quadrant, right lower quadrant and left lower quadrant, Liver: no appreciated palpable abnormalities, Hernia: not appreciated. Vital Signs: 08:55 BP 157 / 95; Pulse 79; Resp 19; Temp 97; Pulse Ox 100% ; Weight 127.01 kg; Height 6 ft. sv 3 in. (190.50 cm); Pain 7/10; 09:45 BP 146 / 88; Pulse 76; Resp 18; Pulse Ox 100% on R/A; hb 09:45 BP 138 / 92; Pulse 77; Resp 16; Pulse Ox 100% on R/A; hb 11:30 BP 136 / 86; Pulse 76; Resp 16; Pulse Ox 99% on R/A; Pain 4/10; hb 13:00 BP 146 / 88; Pulse 88; Resp 16; Pulse Ox 97% on R/A; Pain 5/10; hb 08:55 Body Mass Index 35.00 (127.01 kg, 190.50 cm) sv MDM: 08:49 Patient medically screened. [facility] 09:10 Data reviewed: vital signs, nurses notes, lab test result(s), radiologic studies, CT [facility] scan. 10/02 09:07 Order name: Basic Metabolic Panel [facility] 10/02 09:07 Order name: CBC with Diff [facility] 10/02 09:07 Order name: Creatinine for Radiology [facility] 10/02 09:07 Order name: Hepatic Function [facility] 10/02 09:07 Order name: Lipase [facility] 10/02 09:36 Order name: CBC with Automated Diff; Complete Time: 10:37 EDTX 10/02 09:07 Order name: CT Abd/Pelvis - W/Contrast [facility] 10/02 09:50 Order name: Creatinine (Radiology Only); Complete Time: 10:37 EDTX 10/02 09:53 Order name: Basic Metabolic Panel; Complete Time: 10:37 EDTX 10/02 09:53 Order name: Liver (Hepatic) Function; Complete Time: 10:37 EDTX 10/02 09:53 Order name: Lipase; Complete Time: 10:37 EDTX 10/02 10:38 Order name: US Abdomen Limited [facility] 10/02 11:02 Order name: US; Complete Time: 11:19 EDTX 10/02 11:19 Order name: CT; Complete Time: 13:12 [facility] 10/02 09:07 Order name: IV Saline Lock; Complete Time: : [facility] 10/02 09:07 Order name: Labs collected and sent; Complete Time: [facility] Administered Medications: 09:22 Drug: NS 0.9% 1000 ml Route: IV; Rate: 1 bolus; Site: right antecubital; hb 10:58 Follow up: Response: No adverse reaction; IV Status: Completed infusion hb 09:22 Drug: ProTONIX 40 mg Route: IVP; Site: right antecubital; hb 10:00 Follow up: Response: No adverse reaction; Pain is decreased hb 09:22 Drug: morphine 4 mg Route: IVP; Site: right antecubital; hb 10:00 Follow up: Response: No adverse reaction; Pain is decreased hb 09:22 Drug: Zofran 4 mg Route: IVP; Site: right antecubital; hb 10:00 Follow up: Response: No adverse reaction hb 10:48 Not Given (Duplicate Order): NS 0.9% 1000 ml IV at 125 ml/hr continuous hb 11:11 Drug: Cipro 400 mg Volume: 200 ml; Route: IVPB; Infused Over: 60 mins; Site: right hb antecubital; 13:39 Follow up: Response: No adverse reaction; IV Status: Completed infusion hb 11:11 Drug: Flagyl 500 mg Volume: 100 ml; Route: IVPB; Rate: 200 ml/hr; Infused Over: 30 hb mins; Site: right antecubital; 11:45 Follow up: Response: No adverse reaction; IV Status: Completed infusion hb 11:53 Drug: NS 0.9% 1000 ml Route: IV; Rate: 1 bolus; Site: right antecubital; hb 13:38 Follow up: Response: No adverse reaction; IV Status: Completed infusion hb 13:38 Drug: Rocephin - (cefTRIAXone) 1 grams Route: IVPB; Infused Over: 30 mins; Site: right hb antecubital; 13:38 Follow up: Response: Medication administered at discharge.; IV Status: Completed hb infusion 14:56 Not Given (Patient Refused): NS 0.9% 1000 ml IV at 125 ml/hr continuous hb Disposition: 10/02/18 13:18 Patient has left against medical advice. Impression: Abdominal tenderness, Other acute pancreatitis - elevated lipase, Diverticulitis of large intestine without perforation or abscess without bleeding. - Patients states they are going to Home. - Condition is Stable. - Discharge Instructions: Abdominal Pain, Adult, High-Fiber Diet, Diverticulitis, Acute Pancreatitis, Diverticulitis, [id number], Acute Pancreatitis, [id number], Abdominal Pain, Adult, [id number]. - Prescriptions for Bentyl 20 mg Oral Tablet - take 1 tablet by ORAL route every 6 hours As needed; 20 tablet. Flagyl 500 mg Oral Tablet - take 1 tablet by ORAL route every 6 hours for 10 days; 40 tablet. Pepcid 20 mg Oral Tablet - take 1 tablet by ORAL route every 12 hours for 10 days; 20 tablet. Cipro 500 mg Oral Tablet - take 1 tablet by ORAL route every 12 hours for 10 days; 20 tablet. Follow up: Private Physician; When: 2 - 3 days; Reason: Recheck today's complaints, Continuance of care, Re-evaluation by your physician. Follow up: Christiana Francis MD; When: 2 - 3 days; Reason: Recheck today's complaints, Re-evaluation by your physician. - Problem is new. - Symptoms have improved. Signatures: Dispatcher [employer] EDMarifer Swain RN RN Silvestre Cui MD MD cha Baxter, Heather, RN RN hb Corrections: (The following items were deleted from the chart) 13:13 11:29 Hospitalization Ordered by Waldemar Osullivan MD for Inpatient Admission. Preliminary blue diagnosis is Abdominal tenderness - elevated lipase; Diverticulitis of small intestine without perforation or abscess without bleeding. Bed requested for Telemetry/MedSurg (Inpatient). Status is Inpatient Admission. Condition is Fair. Problem is new. Symptoms have improved. UTI on Admission? No. blue 13:42 13:18 10/02/2018 13:18 Patients has left against medical advice. Impression: Abdominal hb tenderness; Other acute pancreatitis - elevated lipase; Diverticulitis of large intestine without perforation or abscess without bleeding. Patient states they are going to Home. Condition is Stable. Follow up: Private Physician; When: 2 - 3 days; Reason: Recheck today's complaints, Continuance of care, Re-evaluation by your physician. Follow up: Christiana Francis; When: 2 - 3 days; Reason: Recheck today's complaints, Re-evaluation by your physician. Problem is new. Symptoms have improved. blue
--- NOTE | 2018-10-02 11:30 | ER ---
Nurse's Notes [facility] Name: Jae Heredia Age: 38 yrs Sex: Male : 1980 Arrival Date: 10/02/2018 Time: 08:45 Bed 18 Private MD: Diagnosis: Abdominal tenderness;Other acute pancreatitis-elevated lipase;Diverticulitis of large intestine without perforation or abscess without bleeding Presentation: 10/02 08:47 Presenting complaint: Patient states: lower abd burning and hemorrhoids x1-2 weeks. sv Transition of care: patient was not received from another setting of care. Onset of symptoms was September 2018. Care prior to arrival: None. 08:47 Method Of Arrival: Ambulatory sv 08:47 Acuity: KELLIE 3 sv 09:00 Risk Assessment: Do you want to hurt yourself or someone else? Patient reports no hb desire to harm self or others. Initial Sepsis Screen: Does the patient meet any 2 criteria? No. Patient's initial sepsis screen is negative. Does the patient have a suspected source of infection? No. Patient's initial sepsis screen is negative. Triage Assessment: 08:47 General: Appears in no apparent distress. uncomfortable, Behavior is calm, cooperative, sv appropriate for age. Pain: Complains of pain in right lower quadrant and left lower quadrant Pain currently is 7 out of 10 on a pain scale. Neuro: Level of Consciousness is awake, alert, obeys commands, Oriented to person, place, time, situation, Moves all extremities. Full function Gait is steady. Respiratory: Respiratory effort is even, unlabored, Respiratory pattern is regular, symmetrical. GI: Reports lower abdominal pain. Historical: - Allergies: 08:54 No Known Allergies; sv - PMHx: 08:54 None; sv - PSHx: 08:54 Wrist - RIGHT; sv - Immunization history:: Flu vaccine is not up to date. - Social history:: Smoking status: Patient uses tobacco products, smokes one pack cigarettes per day. - Ebola Screening: : No symptoms or risks identified at this time. - Family history:: not pertinent. Screenin:58 Abuse screen: Denies threats or abuse. Denies injuries from another. Nutritional hb screening: No deficits noted. Tuberculosis screening: No symptoms or risk factors identified. Fall Risk None identified. Assessment: 09:20 General: Appears in no apparent distress. Behavior is calm, cooperative. Pain: Pain hb currently is 7 out of 10 on a pain scale. Neuro: Level of Consciousness is awake, alert, obeys commands, Oriented to person, place, time, situation. Cardiovascular: Capillary refill < 3 seconds Patient's skin is warm and dry. Respiratory: Airway is patent Trachea midline Respiratory effort is even, unlabored, Respiratory pattern is regular, symmetrical, Breath sounds are clear bilaterally. GI: Abdomen is obese, Bowel sounds present X 4 quads. Abd is soft and non tender X 4 quads. Reports upper abdominal pain. : No signs and/or symptoms were reported regarding the genitourinary system. EENT: No signs and/or symptoms were reported regarding the EENT system. Derm: Skin is intact, is healthy with good turgor. Musculoskeletal: No signs and/or symptoms reported regarding the musculoskeletal system. 09:32 Reassessment: Pt completed PO contrast, CT notified. ph 10:29 Reassessment: Patient appears in no apparent distress at this time. Patient and/or hb family updated on plan of care and expected duration. Pain level reassessed. Patient is alert, oriented x 3, equal unlabored respirations, skin warm/dry/pink. 11:30 Reassessment: Patient appears in no apparent distress at this time. Patient and/or hb family updated on plan of care and expected duration. Pain level reassessed. Patient is alert, oriented x 3, equal unlabored respirations, skin warm/dry/pink. 12:30 Reassessment: Patient appears in no apparent distress at this time. Patient and/or hb family updated on plan of care and expected duration. Pain level reassessed. Patient is alert, oriented x 3, equal unlabored respirations, skin warm/dry/pink. 13:30 Reassessment: Patient appears in no apparent distress at this time. Patient and/or hb family updated on plan of care and expected duration. Pain level reassessed. Patient is alert, oriented x 3, equal unlabored respirations, skin warm/dry/pink. Vital Signs: 08:55 BP 157 / 95; Pulse 79; Resp 19; Temp 97; Pulse Ox 100% ; Weight 127.01 kg; Height 6 ft. sv 3 in. (190.50 cm); Pain 7/10; 09:45 BP 146 / 88; Pulse 76; Resp 18; Pulse Ox 100% on R/A; hb 09:45 BP 138 / 92; Pulse 77; Resp 16; Pulse Ox 100% on R/A; hb 11:30 BP 136 / 86; Pulse 76; Resp 16; Pulse Ox 99% on R/A; Pain 4/10; hb 13:00 BP 146 / 88; Pulse 88; Resp 16; Pulse Ox 97% on R/A; Pain 5/10; hb 08:55 Body Mass Index 35.00 (127.01 kg, 190.50 cm) sv ED Course: 08:45 Patient arrived in ED. as 08:49 Silvestre Castañeda MD is Attending Physician. blue 08:52 Jacque Anderson, RN is Primary Nurse. hb 08:54 Triage completed. sv 08:55 Arm band placed on Patient placed in an exam room, on a stretcher. sv 08:58 Patient has correct armband on for positive identification. Bed in low position. Call hb light in reach. Side rails up X 1. 09:20 Inserted saline lock: 20 gauge in right antecubital area, using aseptic technique. hb Blood collected. 11:24 Waldemar Osullivan MD is Hospitalizing Provider. blue 13:14 Christiana Francis MD is Referral Physician. blue 13:41 No provider procedures requiring assistance completed. IV discontinued, intact, hb bleeding controlled, No redness/swelling at site. Pressure dressing applied. Administered Medications: 09:22 Drug: NS 0.9% 1000 ml Route: IV; Rate: 1 bolus; Site: right antecubital; hb 10:58 Follow up: Response: No adverse reaction; IV Status: Completed infusion hb 09:22 Drug: ProTONIX 40 mg Route: IVP; Site: right antecubital; hb 10:00 Follow up: Response: No adverse reaction; Pain is decreased hb 09:22 Drug: morphine 4 mg Route: IVP; Site: right antecubital; hb 10:00 Follow up: Response: No adverse reaction; Pain is decreased hb 09:22 Drug: Zofran 4 mg Route: IVP; Site: right antecubital; hb 10:00 Follow up: Response: No adverse reaction hb 10:48 Not Given (Duplicate Order): NS 0.9% 1000 ml IV at 125 ml/hr continuous hb 11:11 Drug: Cipro 400 mg Volume: 200 ml; Route: IVPB; Infused Over: 60 mins; Site: right hb antecubital; 13:39 Follow up: Response: No adverse reaction; IV Status: Completed infusion hb 11:11 Drug: Flagyl 500 mg Volume: 100 ml; Route: IVPB; Rate: 200 ml/hr; Infused Over: 30 hb mins; Site: right antecubital; 11:45 Follow up: Response: No adverse reaction; IV Status: Completed infusion hb 11:53 Drug: NS 0.9% 1000 ml Route: IV; Rate: 1 bolus; Site: right antecubital; hb 13:38 Follow up: Response: No adverse reaction; IV Status: Completed infusion hb 13:38 Drug: Rocephin - (cefTRIAXone) 1 grams Route: IVPB; Infused Over: 30 mins; Site: right hb antecubital; 13:38 Follow up: Response: Medication administered at discharge.; IV Status: Completed hb infusion 14:56 Not Given (Patient Refused): NS 0.9% 1000 ml IV at 125 ml/hr continuous hb Outcome: 11:29 Decision to Hospitalize by Provider. blue 13:41 Discharged to home ambulatory, with family. hb 13:41 Condition: stable 13:41 Discharge instructions given to patient, family, Instructed on discharge instructions, follow up and referral plans. medication usage, Demonstrated understanding of instructions, follow-up care, medications, Prescriptions given X 4. 13:42 Patient left the ED. hb Signatures: Marifer Christensen, RN Silvestre Melton MD MD cha Martinez, Amelia as Hall, Patricia, RN RN ph Baxter, Heather, RN RN hb
[2018-10-02] MEDS ORDERED: METRONIDAZOLE 500mg IVPB 500 MG/100 ML BAG IV ONE (11:41)
[2018-10-02] MEDS ORDERED: CIPROFLOXACIN 400mg IV 400 MG/200 ML BAG IV ONE (11:41)
[2018-10-02] MEDS ORDERED: CEFTRIAXONE/SWI 1gm 1 GM/10 ML SYR ONE (13:40)
--- NOTE | 2018-10-02 14:07 | P.CNS ---
Date of Consult: 10/02/18 HPI: This is a 38 year old male current smoker with no real past medical history who came in to the ED for abdominal pain. Per patient, he had burning type epigastric pain, progressively worsening for the past few days. Denies any radiation, no alleviating or exacerbating factors. In the ED, he was HDS, though his CT scan was with evidence of diverticulitis. At the time of my exam, patient's abdominal pain had improved. He otherwise denies any cp, sob, fevers, chills, nausea/vomiting, diarrhea/constipation. PMH: None PSH: Wrist surgery Medications at home: None Tobacco use: 1 PPD x 10 years EtOH: Occasional; last usage 2 days ago (9 beers) Drug usage: Denies FHx: Not significant Temp Pulse Resp BP Pulse Ox 97 F 88 16 146/88 H 10/02/18 08:55 10/02/18 13:00 10/02/18 13:00 10/02/18 13:00 Physical Exam: Alert, Oriented x 3, No acute distress Moist mucous membranes, HEENT normal Lungs: CTAB, moving air bilaterally, no wheezes, rales/rubs Cardiovascular: RRR, no murmurs GI: Mild TTP in epigastric and LUQ area, distended belly. Normal BS MSK: Nontender, no edema noted. Assessment/Plan: Elevated Lipase Acute sigmoid diverticulitis Current tobacco usage Plan was to admit patient to the acute floor with tele, keep NPO, start IV antibiotics and monitor symptomatically. Patient left AMA from the ED - risks explained to patient regarding possible worsening of diverticulitis, possibility of perforation and increasing pain, etc. Patient understood the risks of leaving AMA and still decided to leave AMA from the ED.
== END 2018-10-02 13:42 | disposition left against medical advice (07) | DRG 392 ==
LOC: ER 08:42 → ERHOLD 11:53
PROVIDERS: ADMIT Family Medicine; ATTEND Family Medicine
DX: K57.32 Diverticulitis of large intestine without perforation or abscess without bleeding (principal); F17.210 Nicotine dependence, cigarettes, uncomplicated
CPT/HCPCS: 36415; 74177; 76705; 80048; 80076; 83690; 85025; C9113; J0696; J0744; J2405; J7030; Q9967

== ENCOUNTER 2018-10-19 10:53 | Emergency (ER) | payer BC ==
[2018-10-19 13:22] LABS: Urine Blood NEGATIVE (NEG); Urine Glucose NEGATIVE (NEG); Urine Protein NEGATIVE (NEG); Urine Specific Gravity 1.025 (1.005-1.030); Urine pH 5.5 (5.0-7.0)
[2018-10-19] MEDS ORDERED: NA CHLORIDE 0.9% 1,000 ML ONE (13:27)
[2018-10-19 13:38] LABS: Absolute Lymphocytes (CBC) 2.2 K/uL (0.7-4.9); Absolute Monocytes 0.3 K/uL (0.1-1.3); Absolute Neutrophil 3.7 K/uL (1.8-8.0); Basophils % 0.9 % (0-1.3); Eosinophils % 1.9 % (0-4.4); Hematocrit 46.7 % (39.6-49.0); Lymphocytes % 34.2 % (15.3-44.8); MPV 9.2 fL (7.6-11.3); Monocytes % 4.2 % (3.3-12.3); RBC Red Blood Cell Count 5.14 M/uL (4.33-5.43)
[2018-10-19 13:55] LABS: Urine Bacteria NONE SEEN /HPF (NONE SEEN); Urine RBC NONE SEEN /HPF (NONE SEEN)
[2018-10-19 13:56] LABS: Calcium Oxalate Crystals- Ur FEW (NONE SEEN); Urine Culture Reflex Order NOT NEEDED; Urine Mucus MOD /HPF (NONE SEEN)
[2018-10-19 14:00] LABS: Barbiturates NEGATIVE (NEGATIVE); Benzodiazepines NEGATIVE (NEGATIVE); Cocaine NEGATIVE (NEGATIVE); METHAMPHETAM NEGATIVE (NEGATIVE); Methadone NEGATIVE (NEGATIVE); Opiates NEGATIVE (NEGATIVE); Phencyclidine NEGATIVE (NEGATIVE); THC Cannibis NEGATIVE (NEGATIVE)
[2018-10-19 14:02] LABS: Albumin 3.9 g/dL (3.4-5.0); Bilirubin Direct 0.2 mg/dL (0-0.2); Bilirubin Total 0.6 mg/dL (0.2-1.0); Magnesium 2.1 mg/dL (1.8-2.4); Potassium 3.8 mmol/L (3.5-5.1); Protein, Total 6.9 g/dL (6.4-8.2)
--- NOTE | 2018-10-19 15:17 | ER ---
Nurse's Notes [facility] Name: Jae Heredia Age: 38 yrs Sex: Male : 1980 Arrival Date: 10/19/2018 Time: 10:54 Bed 25 Private MD: Unknown, Unknown Diagnosis: Weakness Presentation: 10/19 10:57 Presenting complaint: Patient states: at work today, i started shaky and weak, denies hj hx of DM; denies fever and chills;. Transition of care: patient was not received from another setting of care. Onset of symptoms was October 19, 2018. Risk Assessment: Do you want to hurt yourself or someone else? Patient reports no desire to harm self or others. Initial Sepsis Screen: Does the patient meet any 2 criteria? No. Patient's initial sepsis screen is negative. Does the patient have a suspected source of infection? No. Patient's initial sepsis screen is negative. Care prior to arrival: None. 10:57 Method Of Arrival: Ambulatory 10:57 Acuity: KELLIE 3 hj Triage Assessment: 10:59 General: Appears in no apparent distress. uncomfortable, Behavior is calm, cooperative, hj appropriate for age. Pain: Denies pain. Historical: - Allergies: 10:58 No Known Allergies; hj - Home Meds: 10:58 None [Active]; hj - PMHx: 10:58 None; hj - PSHx: 10:58 Wrist - RIGHT; hj - Immunization history:: Adult Immunizations up to date. - Social history:: Smoking status: Patient uses tobacco products, Patient/guardian denies using alcohol. - Ebola Screening: : Patient negative for fever greater than or equal to 101.5 degrees Fahrenheit, and additional compatible Ebola Virus Disease symptoms Patient denies exposure to infectious person Patient denies travel to an Ebola-affected area in the 21 days before illness onset. Screenin:58 Abuse screen: Denies threats or abuse. Denies injuries from another. Nutritional hj screening: No deficits noted. Tuberculosis screening: No symptoms or risk factors identified. Fall Risk None identified. Assessment: 12:37 General: Appears in no apparent distress. Behavior is calm, cooperative. Pain: Denies iw pain. Neuro: Level of Consciousness is awake, alert, obeys commands, Oriented to person, place, time, situation. Cardiovascular: Capillary refill < 3 seconds in bilateral fingers Patient's skin is warm and dry. Respiratory: Respiratory effort is even, unlabored, Respiratory pattern is regular, symmetrical. GI: Abdomen is non-distended, Reports nausea. Derm: Skin is intact, is healthy with good turgor. Musculoskeletal: Range of motion: intact in all extremities. 13:05 Reassessment: Patient and/or family updated on plan of care and expected duration. Pain tl3 level reassessed. Patient is alert, oriented x 3, equal unlabored respirations, skin warm/dry/pink. 14:23 Reassessment: Patient appears in no apparent distress at this time. No changes from tl3 previously documented assessment. Patient and/or family updated on plan of care and expected duration. Pain level reassessed. Patient is alert, oriented x 3, equal unlabored respirations, skin warm/dry/pink. IV infusing well, no needs at this time. 14:53 Reassessment: Patient appears in no apparent distress at this time. No changes from tl3 previously documented assessment. Patient and/or family updated on plan of care and expected duration. Pain level reassessed. Patient is alert, oriented x 3, equal unlabored respirations, skin warm/dry/pink. Fluids completed. Vital Signs: 10:59 BP 136 / 87; Pulse 94; Resp 18; Temp 97.2(TE); Pulse Ox 98% on R/A; Weight 127.01 kg; hj Height 6 ft. 3 in. (190.50 cm); Pain 0/10; 13:05 BP 134 / 91; Pulse 80; Resp 18; Pulse Ox 100% on R/A; tl3 14:53 BP 134 / 91; Pulse 77; Resp 18; Pulse Ox 98% on R/A; tl3 10:59 Body Mass Index 35.00 (127.01 kg, 190.50 cm) ED Course: 10:54 Patient arrived in ED. ag5 10:55 Unknown, Unknown is Private Physician. ag5 10:58 Triage completed. hj 10:59 Arm band placed on right wrist. hj 10:59 Patient has correct armband on for positive identification. Placed in gown. Bed in low hj position. Call light in reach. Side rails up X 1. 12:11 Radha Hammond RN is Primary Nurse. iw 12:35 Ariel Mathew MD is Attending Physician. wa 12:39 No provider procedures requiring assistance completed. iw 13:05 Pulse ox on. NIBP on. tl3 13:05 Initial lab(s) drawn, by me, sent to lab. Inserted saline lock: 20 gauge in left tl3 antecubital area, using aseptic technique. Blood collected. 13:26 Urine Microscopic Only Sent. jp3 13:43 EKG done, by heating repair technician. reviewed by Ariel Mathew MD. 3 14:59 IV discontinued, intact, bleeding controlled, No redness/swelling at site. Pressure tl3 dressing applied. Administered Medications: 13:20 Drug: NS 0.9% 1000 ml Route: IV; Rate: 1 bolus; Site: left antecubital; Delivery: tl3 Primary tubing; 14:55 Follow up: IV Status: Completed infusion; IV Intake: 1000ml tl3 Point of Care Testing: Blood Glucose: 11:04 Blood Glucose: 110 mg/dL; hj 14:56 Blood Glucose: 119 mg/dL; tl3 Ranges: Intake: 14:55 IV: 1000ml; Total: 1000ml. tl3 Outcome: 15:16 Discharge ordered by . oh 15:22 Discharged to home ambulatory. tl3 15:22 Condition: stable 15:22 Discharge instructions given to patient, Instructed on discharge instructions, follow up and referral plans. medication usage, Demonstrated understanding of instructions, follow-up care, medications, Prescriptions given X 1. 15:22 Patient left the ED. tl3 Signatures: Radha Hammond, RN TANISHA Salbador Bautista RN Ariel Younger MD MD wa Lowrey, Tammy RN RN 3 Carmella Sullivan 3 Royal Harris 3 Dandy Doan 5 Corrections: (The following items were deleted from the chart) 11:02 10:59 Pulse 94bpm; Resp 18bpm; Pulse Ox 98% RA; Temp 97.2F Temporal; 127.01 kg; Height 6 ft. 3 in.; BMI: 35.0; Pain 0/10; hj
--- NOTE | 2018-10-19 15:17 | EDPHYS ---
Physician Documentation [facility] Name: Jae Heredia Age: 38 yrs Sex: Male : 1980 Arrival Date: 10/19/2018 Time: 10:54 Bed 25 Private MD: Unknown, Unknown ED Physician Ariel Mathew Historical: - Allergies: 10/19 10:58 No Known Allergies; hj - Home Meds: 10:58 None [Active]; hj - PMHx: 10:58 None; hj - PSHx: 10:58 Wrist - RIGHT; hj - Immunization history:: Adult Immunizations up to date. - Social history:: Smoking status: Patient uses tobacco products, Patient/guardian denies using alcohol. - Ebola Screening: : Patient negative for fever greater than or equal to 101.5 degrees Fahrenheit, and additional compatible Ebola Virus Disease symptoms Patient denies exposure to infectious person Patient denies travel to an Ebola-affected area in the 21 days before illness onset. Vital Signs: 10:59 BP 136 / 87; Pulse 94; Resp 18; Temp 97.2(TE); Pulse Ox 98% on R/A; Weight 127.01 kg; hj Height 6 ft. 3 in. (190.50 cm); Pain 0/10; 13:05 BP 134 / 91; Pulse 80; Resp 18; Pulse Ox 100% on R/A; tl3 14:53 BP 134 / 91; Pulse 77; Resp 18; Pulse Ox 98% on R/A; tl3 10:59 Body Mass Index 35.00 (127.01 kg, 190.50 cm) hj MDM: 12:35 Patient medically screened. hi 10/19 12:34 Order name: Urine Dipstick--Ancillary (enter results); Complete Time: 14:28 ms 10/19 13:05 Order name: Urine Microscopic Only; Complete Time: 14:28 hi 10/19 13:05 Order name: UDS; Complete Time: 14:35 hi 10/19 13:05 Order name: Basic Metabolic Panel; Complete Time: 14:28 hi 10/19 13:05 Order name: CBC with Diff hi 10/19 13:05 Order name: CPK hi 10/19 11:01 Order name: Finger Stick; Complete Time: 11:02 10/19 11:17 Order name: EKG; Complete Time: 11:17 10/19 13:05 Order name: Hepatic Function; Complete Time: 14:28 hi 10/19 13:05 Order name: Lipase hi 10/19 13:05 Order name: Magnesium hi 10/19 14:49 Order name: Glucose, Ancillary Testing EDLA 10/19 14:49 Order name: Glucose, Ancillary Testing EDLA 10/19 13:05 Order name: Cardiac monitoring; Complete Time: 14:08 hi 10/19 13:05 Order name: EKG - Nurse/Tech; Complete Time: 14:08 hi 10/19 13:05 Order name: IV Saline Lock; Complete Time: 14:08 hi 10/19 13:05 Order name: Labs collected and sent; Complete Time: 14:08 hi 10/19 13:05 Order name: O2 Sat Monitoring; Complete Time: 14:08 hi 10/19 14:36 Order name: Accucheck; Complete Time: 14:41 hi Administered Medications: 13:20 Drug: NS 0.9% 1000 ml Route: IV; Rate: 1 bolus; Site: left antecubital; Delivery: tl3 Primary tubing; 14:55 Follow up: IV Status: Completed infusion; IV Intake: 1000ml tl3 Point of Care Testing: Blood Glucose: 11:04 Blood Glucose: 110 mg/dL; 14:56 Blood Glucose: 119 mg/dL; tl3 Ranges: Critical Glucose Levels:Adult <50 mg/dl or >400 mg/dl <40 mg/dl or >180 mg/dl Disposition: 10/19/18 15:16 Discharged to Home. Impression: Weakness. - Condition is Stable. - Discharge Instructions: Weakness, [id number]. - Prescriptions for Albuterol Sulfate 90 mcg/actuation - inhale 1-2 puff by INHALATION route every 4-6 hours; 1 Inhaler. - Medication Reconciliation Form, Thank You Letter, Antibiotic Education, Prescription Opioid Use form. - Follow up: Private Physician; When: 2 - 3 days; Reason: Recheck today's complaints. - Problem is new. - Symptoms are resolved. - Notes: please maintain ample hydration. return here immediately if worsening concerns Addendum: 10/20/2018 20:39 Addendum: CC: weakness. HPI: 38 yo M, obese, no significant health problems otherwise. w donte presents stating felt generally weak at his work. 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 states he began shaking. denies BLACKMON, CP, SOB, or dizziness. states feels much better now. advises did not eat breakfast as he usually does in the mornings before work as was not hungry. denies abd pain, fever, N/V, diarrhea. ALL: NKDA. Meds: none. PMHx: none. PSHx: wrist surgery. SHx: uses tobacco. denies ETOH. FHx: DM, HTN. ROS: noted for generalized weakness. Otherwise all other systems reviewed and negative. EXAM: HEENT: no trauma. throat clear. CVS: no murmurs. RRR. Lungs: Clear bilaterally. normal effort. Abd: no distention. non-tender to palp. . no swelling. EXT: no swelling or edema. Neuro: Alert. normal motor. no lateralizing abnormality. DDX/Med decision-makin yr old male with normal exam who presents with episode of weakness. will r/o cardio vs neuro etiology. consider electrolyte issues. r/o DM. will hydrate. eval and reassess. Results: labs noted wnl. EKG reviewed and interpreted by me. HR 77. essentially normal. no dysthymic changes. Reassessment: symptoms resolved. no complaints. pt's mother at bedside. advised immediate return for reoccurrence of symptoms. advised close f/u otherwise with PMD. Signatures: Dispatcher [employer] EDMS Salbador Bautista, TANISHA RN Ariel Mathew MD MD wa Lowrey, Tammy, RN RN tl3 Corrections: (The following items were deleted from the chart) 10/19 15:22 15:16 10/19/2018 15:16 Discharged to Home. Impression: Weakness. Condition is Stable. tl3 Forms are Medication Reconciliation Form, Thank You Letter, Antibiotic Education, Prescription Opioid Use. Follow up: Private Physician; When: 2 - 3 days; Reason: Recheck today's complaints. Problem is new. Symptoms are resolved. martha
--- NOTE | 2018-10-19 17:04 | EKG ---
Test Date: 2018-10-19 Test Time: 11:30:50 Gripper Attacher: MANSOOR MEASUREMENT RESULTS: Intervals: Rate: 77 OK: 164 QRSD: 92 QT: 368 QTc: 416 Sciota: P: 55 OK: 164 QRS: 74 T: 48 INTERPRETIVE STATEMENTS: Normal sinus rhythm Normal ECG Compared to ECG 04/07/2018 17:54:06 No significant changes Electronically Signed On 10-19-18 17:03:46 ASSISTANT HEALTH EDUCATOR by Jose Hernandez
== END 2018-10-19 15:22 | disposition home or self-care (01) ==
LOC: ER 10:53
DX: R53.1 Weakness (principal); Z72.0 Tobacco use
CPT/HCPCS: 36415; 80048; 80076; 80307; 81003; 81015; 82550; 82962; 83690; 83735; 85025; 93005; 96360; 96361; 99284; J7030

== ENCOUNTER 2018-12-24 18:16 | Emergency (ER) | payer BC ==
--- NOTE | 2018-12-24 19:53 | ER ---
Nurse's Notes [facility] Name: Jae Heredia Age: 38 yrs Sex: Male : 1980 Arrival Date: 12/24/2018 Time: 18:17 Bed Waiting Private MD: Diagnosis: Presentation: 12/24 18:46 Presenting complaint: Patient states: toothache that began 2 weeks ago. Pt states "I aa5 have a dentist appointment for tomorrow morning". Transition of care: patient was not received from another setting of care. Onset of symptoms was December 2018. Risk Assessment: Do you want to hurt yourself or someone else? Patient reports no desire to harm self or others. Initial Sepsis Screen: Does the patient meet any 2 criteria? No. Patient's initial sepsis screen is negative. Does the patient have a suspected source of infection? No. Patient's initial sepsis screen is negative. Care prior to arrival: None. 18:46 Method Of Arrival: Ambulatory aa5 18:46 Acuity: KELLIE 5 aa5 Historical: - Allergies: 18:48 No Known Allergies; aa5 - PMHx: 18:48 None; aa5 - PSHx: 18:47 Wrist - RIGHT; aa5 - Immunization history:: Flu vaccine is not up to date. - Social history:: Smoking status: Patient uses tobacco products, smokes one-half pack cigarettes per day. - Ebola Screening: : No symptoms or risks identified at this time. Vital Signs: 18:48 BP 154 / 89; Pulse 96; Resp 18 S; Temp 98.1(TE); Pulse Ox 97% on R/A; Weight 127.01 kg aa5 (R); Height 6 ft. 3 in. (190.50 cm) (R); Pain 8/10; 18:48 Body Mass Index 35.00 (127.01 kg, 190.50 cm) aa5 ED Course: 18:17 Patient arrived in ED. as 18:46 Arm band placed on. aa5 18:47 Triage completed. aa5 19:30 Patient's name was called from ER lobby. No response. lp1 19:48 Patient's name was called from ER lobby. No response. lp1 Administered Medications: No medications were administered Outcome: 19:51 Eloped from waiting room, before seeing physician Time discovered patient gone: December1 2018 at 19:51 19:52 Patient left the ED. lp1 Signatures: Vanessa Lucia Audri, RN RN aa5 Philly Yan RN RN lp1
== END 2018-12-24 19:52 | disposition left against medical advice (07) ==
LOC: ER 18:16
DX: Z53.21 Procedure and treatment not carried out due to patient leaving prior to being seen by health care provider (principal)
CPT/HCPCS: 99281

== ENCOUNTER 2019-03-24 18:35 | Emergency (ER) | payer SELFPAY ==
--- NOTE | 2019-03-24 19:55 | RAD REPORT ---
EXAM DESCRIPTION: RAD - Wrist Left 3 View - 03/24/2019 7:47 pm CLINICAL HISTORY: PAIN Pain COMPARISON: <Comparisons> FINDINGS: No fracture or dislocation seen. No foreign body or other soft tissue abnormality. IMPRESSION: Negative examination.
--- NOTE | 2019-03-24 19:55 | RAD REPORT ---
EXAM DESCRIPTION: RAD - Elbow Left 3 View - 03/24/2019 7:47 pm CLINICAL HISTORY: PAIN COMPARISON: <Comparisons> FINDINGS: No fracture or dislocation seen.
[2019-03-24] MEDS ORDERED: ACETAMINOPHEN 500 MG TAB ONE (19:58)
[2019-03-24] MEDS ORDERED: IBUPROFEN 400 MG TAB ONE (19:58)
--- NOTE | 2019-03-24 20:28 | EDPHYS ---
Physician Documentation [facility] Name: Jae Heredia Age: 38 yrs Sex: Male : 1980 Arrival Date: 03/24/2019 Time: 18:36 Bed 20 Private MD: ED Physician Austyn Angeles HPI: 03/24 19:00 This 38 yrs old Male presents to ER via Ambulatory with complaints of Elbow cp Injury. 19:00 The patient or guardian complains of pain, that is acute, tenderness. The complaints cp affect the left wrist, left elbow and left forearm. 19:00 Context: started suddenly after lifting heavy object. Reports feeling "pop" in elbow. cp Onset: The symptoms/episode began/occurred just prior to arrival. Treatment prior to arrival includes: no previous treatment. Historical: - Allergies: 18:42 No Known Allergies; la1 - PMHx: 18:42 None; la1 - Immunization history:: Adult Immunizations up to date. - Social history:: Smoking status: Patient uses tobacco products, smokes one-half pack cigarettes per day. - Ebola Screening: : No symptoms or risks identified at this time. ROS: 19:11 Constitutional: Negative for body aches, chills, fever, poor PO intake. cp 19:11 Eyes: Negative for injury, pain, redness, and discharge. cp 19:11 Neck: Negative for pain with movement, pain at rest, stiffness, tenderness, bony tenderness. 19:11 Cardiovascular: Negative for chest pain, palpitations. 19:11 Respiratory: Negative for cough, shortness of breath, wheezing. 19:11 MS/extremity: Positive for pain, swelling, tenderness, of the left wrist and left forearm and left elbow, Negative for paresthesias. 19:11 Skin: Negative for cellulitis, rash. 19:11 Neuro: Negative for headache, numbness, tingling, weakness. 19:11 All other systems are negative. Exam: 19:20 Constitutional: The patient appears in no acute distress, alert, awake, cp non-diaphoretic, non-toxic, well developed, well nourished. 19:20 Head/Face: Normocephalic, atraumatic. cp 19:20 Eyes: Periorbital structures: appear normal, Conjunctiva: normal, no exudate, no injection, Lids and lashes: appear normal, bilaterally. 19:20 ENT: External ear(s): are unremarkable, Nose: is normal, Mouth: is normal. 19:20 Chest/axilla: Inspection: normal, Palpation: is normal, no crepitus, no tenderness. 19:20 Cardiovascular: Rate: normal, Rhythm: regular. 19:20 Respiratory: the patient does not display signs of respiratory distress, Respirations: normal, no use of accessory muscles, no retractions, no splinting, no tachypnea. 19:20 Musculoskeletal/extremity: Extremities: grossly normal except: noted in the left wrist and left forearm and left elbow: pain, swelling, tenderness, There is no evidence of decreased ROM, deformity, ROM: limited passive range of motion due to pain, in the left wrist and left elbow, Pulses: noted to be 2+ in the right radial artery and left radial artery, Sensation intact. 19:20 Skin: cellulitis, is not appreciated, no rash present. Vital Signs: 18:43 BP 145 / 87; Pulse 86; Resp 16; Temp 98.2; Pulse Ox 98% on R/A; Weight 124.74 kg; la1 Height 6 ft. 3 in. (190.50 cm); 18:43 Body Mass Index 34.37 (124.74 kg, 190.50 cm) la1 Procedures: 20:50 Splinting: Splint applied to left wrist and left elbow using sling, wrist splint, cp applied by nurse. Examined by me, post splint application: neurovascular intact, Patient tolerated well. MDM: 18:48 Patient medically screened. cp 20:00 Differential diagnosis: closed fracture, tendonitis, sprain, strain, tendon rupture. cp 20:25 Data reviewed: vital signs, nurses notes, radiologic studies, plain films. cp 20:25 Test interpretation: by ED physician or midlevel provider: plain radiologic studies. cp Counseling: I had a detailed discussion with the patient and/or guardian regarding: the historical points, exam findings, and any diagnostic results supporting the discharge/admit diagnosis, radiology results, to return to the emergency department if symptoms worsen or persist or if there are any questions or concerns that arise at home. Response to treatment: the patient's symptoms have markedly improved after treatment, and as a result, I will discharge patient. 03/24 18:53 Order name: XRAY Elbow LEFT 3 view; Complete Time: 20:20 cp 03/24 18:53 Order name: XRAY Wrist LEFT 3 view; Complete Time: 20:20 cp 03/24 20:21 Order name: Wrist Splint; Complete Time: 20:45 cp 03/24 20:21 Order name: Sling; Complete Time: 20:55 cp Administered Medications: 19:46 Drug: Ibuprofen 800 mg Route: PO; eb1 20:42 Follow up: Response: No adverse reaction; Pain is decreased eb1 19:46 Drug: Tylenol 1000 mg Route: PO; eb1 20:42 Follow up: Response: No adverse reaction; Pain is decreased eb1 Disposition: 03/25 17:34 Co-signature as Attending Physician, Austyn Angeles MD. rn Disposition: 03/24/19 20:27 Discharged to Home. Impression: Pain in left wrist, Pain in left elbow. - Condition is Stable. - Discharge Instructions: Joint Pain, Wrist Pain. - Prescriptions for Naprosyn 500 mg Oral Tablet - take 1 tablet by ORAL route 2 times per day take with food; 20 tablet. - Medication Reconciliation Form, Thank You Letter, Antibiotic Education, Prescription Opioid Use form. - Follow up: Leonidas Gómez MD; When: 5 - 6 days; Reason: Recheck today's complaints. - Problem is new. - Symptoms have improved. Signatures: Dispatcher [employer] EDMS Austyn Angeles MD MD rn Attema, Lee RN RN la1 Silvestre Gruber PA PA cp Basinger, Emily RN RN eb1 Corrections: (The following items were deleted from the chart) 03/24 20:55 20:27 03/24/2019 20:27 Discharged to Home. Impression: Pain in left wrist; Pain in left eb1 elbow. Condition is Stable. Forms are Medication Reconciliation Form, Thank You Letter, Antibiotic Education, Prescription Opioid Use. Follow up: Leonidas Gómez; When: 5 - 6 days; Reason: Recheck today's complaints. Problem is new. Symptoms have improved. cp
--- NOTE | 2019-03-24 20:28 | ER ---
Nurse's Notes [facility] Name: Jae Heredia Age: 38 yrs Sex: Male : 1980 Arrival Date: 03/24/2019 Time: 18:36 Bed 20 Private MD: Diagnosis: Pain in left wrist;Pain in left elbow Presentation: 03/24 18:41 Presenting complaint: Patient states: I was lifting a heavy object and felt a pop in my la1 left elbow and began having tingling/pain down to my left hand. Transition of care: patient was not received from another setting of care. Onset of symptoms was March 24, 2019. Risk Assessment: Do you want to hurt yourself or someone else? Patient reports no desire to harm self or others. Initial Sepsis Screen: Does the patient meet any 2 criteria? No. Patient's initial sepsis screen is negative. Does the patient have a suspected source of infection? No. Patient's initial sepsis screen is negative. Care prior to arrival: None. 18:41 Method Of Arrival: Ambulatory la1 18:41 Acuity: KELLIE 4 la1 Triage Assessment: 20:49 General: Appears in no apparent distress. uncomfortable, well groomed, well developed, eb1 well nourished, Behavior is calm, cooperative, appropriate for age. Pain: Complains of pain in left wrist Pain currently is 8 out of 10 on a pain scale. Musculoskeletal: No deficits noted. No signs and/or symptoms reported regarding the musculoskeletal system. Injury Description: patient states they were moving a big pole when their arm twisted the wrong way and popped. Historical: - Allergies: 18:42 No Known Allergies; la1 - PMHx: 18:42 None; la1 - Immunization history:: Adult Immunizations up to date. - Social history:: Smoking status: Patient uses tobacco products, smokes one-half pack cigarettes per day. - Ebola Screening: : No symptoms or risks identified at this time. Screenin:49 Abuse screen: Denies threats or abuse. Denies injuries from another. Nutritional eb1 screening: No deficits noted. Tuberculosis screening: No symptoms or risk factors identified. Fall Risk None identified. Assessment: 20:52 General: Appears in no apparent distress. uncomfortable, well groomed, well developed, eb1 well nourished, Behavior is calm, cooperative, appropriate for age. Pain: Complains of pain in left wrist Pain currently is 8 out of 10 on a pain scale. Pain began 2 hours ago. Aggravated by repositioning. Neuro: No deficits noted. Cardiovascular: No deficits noted. Respiratory: No deficits noted. GI: No deficits noted. : No deficits noted. No signs and/or symptoms were reported regarding the genitourinary system. EENT: No deficits noted. No signs and/or symptoms were reported regarding the EENT system. Derm: No deficits noted. No signs and/or symptoms reported regarding the dermatologic system. Musculoskeletal: No deficits noted. No signs and/or symptoms reported regarding the musculoskeletal system. Injury Description: patient states they were moving a big pole today and their wrist and elbow popped. Vital Signs: 18:43 BP 145 / 87; Pulse 86; Resp 16; Temp 98.2; Pulse Ox 98% on R/A; Weight 124.74 kg; la1 Height 6 ft. 3 in. (190.50 cm); 18:43 Body Mass Index 34.37 (124.74 kg, 190.50 cm) la1 ED Course: 18:36 Patient arrived in ED. as 18:42 Triage completed. la1 18:43 Arm band placed on left wrist. la1 18:45 Silvestre Gruber PA is PHCP. cp 18:45 Austyn Angeles MD is Attending Physician. cp 19:47 XRAY Elbow LEFT 3 view In Process Unspecified. EDMS 19:47 XRAY Wrist LEFT 3 view In Process Unspecified. EDMS 20:27 Leonidas Gómez MD is Referral Physician. cp 20:51 No provider procedures requiring assistance completed. Patient did not have IV access eb1 during this emergency room visit. 20:52 Patient has correct armband on for positive identification. Bed in low position. eb1 Administered Medications: 19:46 Drug: Ibuprofen 800 mg Route: PO; eb1 20:42 Follow up: Response: No adverse reaction; Pain is decreased eb1 19:46 Drug: Tylenol 1000 mg Route: PO; eb1 20:42 Follow up: Response: No adverse reaction; Pain is decreased eb1 Outcome: 20:27 Discharge ordered by . cp 20:51 Discharged to home with family. eb1 20:51 Condition: good 20:51 Discharge instructions given to patient, Instructed on discharge instructions, follow up and referral plans. Demonstrated understanding of instructions, follow-up care, medications, Prescriptions given X 1. 20:55 Patient left the ED. eb1 Signatures: Dispatcher [employer] aVnessa Bautista Lee, RN RN la1 Silvestre Gruber PA PA cp Basinger, Emily RN RN eb1
== END 2019-03-24 20:55 | disposition home or self-care (01) ==
LOC: ER 18:35
DX: M25.522 Pain in left elbow (principal); F17.210 Nicotine dependence, cigarettes, uncomplicated
CPT/HCPCS: 99283

== ENCOUNTER 2019-04-19 09:14 | Emergency (ER) | payer SELFPAY ==
--- NOTE | 2019-04-19 09:49 | ER ---
Nurse's Notes [facility] Name: Jae Heredia Age: 38 yrs Sex: Male : 1980 Arrival Date: 04/19/2019 Time: 09:16 Bed 15 Private MD: None, None Diagnosis: Acute serous otitis media, left ear Presentation: 04/19 09:24 Presenting complaint: Sinus congestion x 6 days, sore throat x 2 days. Denies hb fever/cough. Transition of care: patient was not received from another setting of care. Onset of symptoms was April 15, 2019. Risk Assessment: Do you want to hurt yourself or someone else? Patient reports no desire to harm self or others. Initial Sepsis Screen: Does the patient meet any 2 criteria? No. Patient's initial sepsis screen is negative. Does the patient have a suspected source of infection? No. Patient's initial sepsis screen is negative. Care prior to arrival: None. 09:24 Method Of Arrival: Ambulatory hb 09:24 Acuity: KELLIE 4 hb Historical: - Allergies: 09:26 No Known Allergies; hb - Home Meds: 09:26 None [Active]; hb - PMHx: 09:26 None; hb - PSHx: 09:26 Wrist - Right; hb - Immunization history:: Adult Immunizations up to date. - Social history:: Smoking status: Patient/guardian denies using tobacco. - Ebola Screening: : No symptoms or risks identified at this time. Screenin:30 Abuse screen: Denies threats or abuse. Denies injuries from another. Nutritional ph screening: No deficits noted. Tuberculosis screening: No symptoms or risk factors identified. Fall Risk None identified. Assessment: 09:30 General: Appears in no apparent distress. comfortable, well groomed, Behavior is calm, ph cooperative, appropriate for age, Denies fever. Pain: Complains of pain in throat. Neuro: Level of Consciousness is awake, alert, obeys commands, Oriented to person, place, time, situation. Cardiovascular: Capillary refill < 3 seconds in bilateral fingers Patient's skin is warm and dry. Respiratory: Airway is patent Respiratory effort is even, unlabored, Respiratory pattern is regular, symmetrical, Breath sounds are clear bilaterally. Denies shortness of breath. GI: No signs and/or symptoms were reported involving the gastrointestinal system. EENT: Throat is clear Reports nasal congestion. Derm: Skin is intact, is fragile, Skin is pink, warm \T\ dry. Musculoskeletal: Circulation, motion, and sensation intact. Range of motion: intact in all extremities. Vital Signs: 09:26 BP 138 / 97; Pulse 88; Resp 16; Temp 98.2; Pulse Ox 100% on R/A; Weight 124.74 kg; hb Height 6 ft. 3 in. (190.50 cm); Pain 8/10; 09:26 Body Mass Index 34.37 (124.74 kg, 190.50 cm) hb ED Course: 09:16 Patient arrived in ED. mr 09:17 None, None is Private Physician. mr 09:20 [facility] 09:20 Silviano Fleming MD is Attending Physician. [facility] 09:25 Triage completed. hb 09:26 Arm band placed on. hb 09:30 Patient has correct armband on for positive identification. Bed in low position. Call ph light in reach. Side rails up X 1. Pulse ox on. NIBP on. Door closed. Noise minimized. 10:09 Natasha Toure, RN is Primary Nurse. ph 10:10 No provider procedures requiring assistance completed. Patient did not have IV access ph during this emergency room visit. Administered Medications: No medications were administered Outcome: 09:48 Discharge ordered by . [facility] 10:13 Patient left the ED. ph 10:13 Discharged to home ambulatory. ph 10:13 Condition: good 10:13 Discharge instructions given to patient, Instructed on discharge instructions, follow up and referral plans. medication usage, Demonstrated understanding of instructions, follow-up care, medications, Prescriptions given X 1. Signatures: Adrian Francisco PA PA jmm Rivera, Mary mr Natasha Toure, RN RN Jacque Anderson RN RN
--- NOTE | 2019-04-19 09:49 | EDPHYS ---
Physician Documentation [facility] Name: Jae Heredia Age: 38 yrs Sex: Male : 1980 Arrival Date: 04/19/2019 Time: 09:16 Bed 15 Private MD: None, None ED Physician Silviano Fleming HPI: 04/19 09:36 This 38 yrs old Male presents to ER via Ambulatory with complaints of Sore jmm Throat. 09:36 The patient presents with sore throat. jmm 09:36 Onset: The symptoms/episode began/occurred gradually, 6 day(s) ago. Modifying factors: jmm The symptoms are alleviated by nothing, the symptoms are aggravated by nothing. This is a 38 year old male with no known chronic medical conditions that presents to the ED with complaints of left sided ear pain beginning approx 6 days ago with sore throat and left sided ear pain. Denies fever or chills. Complains of a popping sensation in his left ear. . Historical: - Allergies: 09:26 No Known Allergies; hb - Home Meds: 09:26 None [Active]; hb - PMHx: 09:26 None; hb - PSHx: 09:26 Wrist - Right; hb - Immunization history:: Adult Immunizations up to date. - Social history:: Smoking status: Patient/guardian denies using tobacco. - Ebola Screening: : No symptoms or risks identified at this time. ROS: 09:36 Constitutional: Negative for fever, chills, and weight loss, Cardiovascular: Negative jmm for chest pain, palpitations, and edema, Respiratory: Negative for shortness of breath, cough, wheezing, and pleuritic chest pain. 09:36 : Negative for injury, bleeding, discharge, and swelling, MS/Extremity: Negative for injury and deformity, Neuro: Negative for headache, weakness, numbness, tingling, and seizure. 09:36 ENT: Positive for ear pain, sore throat. 09:36 All other systems are negative. Exam: 09:36 Constitutional: This is a well developed, well nourished patient who is awake, alert, jmm and in no acute distress. Head/Face: atraumatic. Eyes: EOMI, no conjunctival erythema appreciated 09:36 Neck: Trachea midline, Supple Chest/axilla: Normal chest wall appearance and motion. Cardiovascular: Regular rate and rhythm. No edema appreciated Respiratory: Normal respirations, no respiratory distress appreciated Abdomen/GI: Non distended, soft Back: Normal ROM Skin: General appearance color normal MS/ Extremity: Moves all extremities, no obvious deformities appreciated, no edema noted to the lower extremities Neuro: Awake and alert, normal gait Psych: Behavior is normal, Mood is normal, Patient is cooperative and pleasant 09:36 ENT: TM's: erythema, that is moderate, on the left, Posterior pharynx: is normal, Airway: normal, Uvula: normal. Vital Signs: 09:26 BP 138 / 97; Pulse 88; Resp 16; Temp 98.2; Pulse Ox 100% on R/A; Weight 124.74 kg; hb Height 6 ft. 3 in. (190.50 cm); Pain 8/10; 09:26 Body Mass Index 34.37 (124.74 kg, 190.50 cm) hb MDM: 09:36 Patient medically screened. [facility] 09:47 Data reviewed: vital signs, nurses notes. Counseling: I had a detailed discussion with annette the patient and/or guardian regarding: the historical points, exam findings, and any diagnostic results supporting the discharge/admit diagnosis, the need for outpatient follow up, to return to the emergency department if symptoms worsen or persist or if there are any questions or concerns that arise at home. ED course: Patient is alert and non toxic in appearance in the ED. Patient prescribed oral antibiotics. Patient was otherwise given strict return precautions. patient understood and agrees with the plan of care. . Administered Medications: No medications were administered Disposition: 12:31 Co-signature as Attending Physician, Silviano Fleming MD I agree with the assessment and kdr plan of care. Disposition: 04/19/19 09:48 Discharged to Home. Impression: Acute serous otitis media, left ear. - Condition is Stable. - Discharge Instructions: Otitis Media, Adult. - Prescriptions for Amoxicillin 875 mg Oral Tablet - take 1 tablet by ORAL route every 12 hours for 10 days; 20 tablet. - Medication Reconciliation Form, Thank You Letter, Antibiotic Education, Prescription Opioid Use, Work release form form. - Follow up: Private Physician; When: 2 - 3 days; Reason: Recheck today's complaints, Continuance of care, Re-evaluation by your physician. Signatures: RitSilviano byrd MD MD kdr Mickail, Joel, PA PA jmm Natasha Toure, RN RN Jacque Anderson RN RN Corrections: (The following items were deleted from the chart) 10:13 09:48 04/19/2019 09:48 Discharged to Home. Impression: Acute serous otitis media, left ph ear. Condition is Stable. Forms are Medication Reconciliation Form, Thank You Letter, Antibiotic Education, Prescription Opioid Use. Follow up: Private Physician; When: 2 - 3 days; Reason: Recheck today's complaints, Continuance of care, Re-evaluation by your physician. christopher
== END 2019-04-19 10:13 | disposition home or self-care (01) ==
LOC: ER 09:14
DX: H65.02 Acute serous otitis media, left ear (principal)
CPT/HCPCS: 99283

== ENCOUNTER 2019-05-07 17:42 | Emergency (ER) | payer SELFPAY ==
--- NOTE | 2019-05-07 18:20 | ER ---
Nurse's Notes [facility] Name: Jae Heredia Age: 38 yrs Sex: Male : 1980 Arrival Date: 05/07/2019 Time: 17:45 Bed 18 Private MD: Diagnosis: Allergy status to drugs, medicaments and biological substances;Tinnitus, right ear Presentation: 05/07 18:04 Presenting complaint: Patient states: Right ear infection, discharged a few days ago jl7 with Zithromax and Prednisone, red face started yesterday. Intermittent chest pressure and SOB on exertion x "a couple years". Transition of care: patient was not received from another setting of care. Onset: The symptoms/episode began/occurred yesterday. Anaphylaxis evaluation, the patient reports or I have noted the following symptoms which indicate a significant risk of anaphylaxis: shortness of breath. Onset of symptoms was May 06, 2019. Risk Assessment: Do you want to hurt yourself or someone else? Patient reports no desire to harm self or others. Initial Sepsis Screen: Does the patient meet any 2 criteria? No. Patient's initial sepsis screen is negative. Does the patient have a suspected source of infection? No. Patient's initial sepsis screen is negative. Care prior to arrival: None. 18:04 Method Of Arrival: Ambulatory jl7 18:04 Acuity: KELLIE 3 jl7 Triage Assessment: 18:09 General: Appears in no apparent distress. uncomfortable, Behavior is calm, cooperative, jl7 appropriate for age. Pain: Complains of pain in right ear Pain currently is 7 out of 10 on a pain scale. Quality of pain is described as "Ringing". EENT: Tympanic membrane clear on left ear and right ear Ear canal clear on left ear and right ear Reports ringing in right ear. Neuro: Level of Consciousness is awake, alert, obeys commands, Oriented to person, place, time, situation. Cardiovascular: Reports chest pain, shortness of breath, since "A couple of years." Heart tones S1 S2 present Patient's skin is warm and dry. Respiratory: Airway is patent Respiratory effort is even, unlabored, Respiratory pattern is regular, symmetrical, Breath sounds are clear bilaterally. GI: No signs and/or symptoms were reported involving the gastrointestinal system. : No signs and/or symptoms were reported regarding the genitourinary system. Derm: Skin is pink, warm \\T\\ dry. Historical: - Allergies: 18:08 No Known Allergies; jl7 - Home Meds: 18:15 None [Active]; jl7 - PMHx: 18:15 None; jl7 - PSHx: 18:15 Wrist - Right; jl7 - Immunization history:: Adult Immunizations unknown. - Social history:: Smoking status: Patient uses tobacco products, smokes one pack cigarettes per day. - Ebola Screening: : No symptoms or risks identified at this time. Screenin:12 Abuse screen: Denies threats or abuse. Denies injuries from another. Nutritional jl7 screening: No deficits noted. Tuberculosis screening: No symptoms or risk factors identified. 18:36 Fall Risk None identified. jl7 Assessment: 18:12 General: See triage assessment. jl7 Vital Signs: 18:08 BP 138 / 94; Pulse 96; Resp 16 S; Temp 97.9(O); Pulse Ox 96% on R/A; Weight 122.47 kg jl7 (R); Height 6 ft. 3 in. (190.50 cm) (R); Pain 7/10; 18:08 Body Mass Index 33.75 (122.47 kg, 190.50 cm) jl7 ED Course: 17:45 Patient arrived in ED. mr 17:59 Eyal Prado MD is Attending Physician. gs 18:04 Jo Szymnaski, RN is Primary Nurse. jl7 18:07 Triage completed. jl7 18:08 Arm band placed on right wrist. jl7 18:12 Patient has correct armband on for positive identification. Bed in low position. Call jl7 light in reach. Side rails up X 1. Pulse ox on. NIBP on. 18:19 Marifer Jones MD is Referral Physician. gs 18:36 No provider procedures requiring assistance completed. Patient did not have IV access jl7 during this emergency room visit. Administered Medications: No medications were administered Outcome: 18:19 Discharge ordered by . gs 18:36 Discharged to home ambulatory. jl7 18:36 Condition: stable 18:36 Discharge instructions given to patient, Instructed on discharge instructions, follow up and referral plans. medication usage, Demonstrated understanding of instructions, follow-up care, medications, Prescriptions given X 2. 18:37 Patient left the ED. jl7 Signatures: Merline Nieves Jahala, RN RN jl7 Eyal Prado MD MD gs
--- NOTE | 2019-05-07 18:20 | EDPHYS ---
Physician Documentation [facility] Name: Jae Heredia Age: 38 yrs Sex: Male : 1980 Arrival Date: 05/07/2019 Time: 17:45 Bed 18 Private MD: ED Physician Eyal Prado HPI: 05/07 18:43 This 38 yrs old Male presents to ER via Ambulatory with complaints of gs Allergic Reaction. 18:43 The patient presents with localized swelling, rash, of the face. Onset: The gs symptoms/episode began/occurred acutely, today. Associated signs and symptoms: Pertinent negatives: dysphagia, shortness of breath. Possible causes: antibiotics. At home the patient or guardian has treated the symptoms with nothing. Severity of symptoms: At their worst the symptoms were moderate in the emergency department the symptoms have improved moderately. The patient has not experienced similar symptoms in the past. The patient has been recently seen by a physician: with different complaint(s), was given a prescription for antibiotics. Historical: - Allergies: 18:08 No Known Allergies; jl7 - Home Meds: 18:15 None [Active]; jl7 - PMHx: 18:15 None; jl7 - PSHx: 18:15 Wrist - Right; jl7 - Immunization history:: Adult Immunizations unknown. - Social history:: Smoking status: Patient uses tobacco products, smokes one pack cigarettes per day. - Ebola Screening: : No symptoms or risks identified at this time. ROS: 18:43 ENT: Positive for tinnitus. gs 18:43 Cardiovascular: Positive for chest pain, FOR 2-3 MONTHS INTERMITTENT, NONE NOW REFUSES EKG AND WORK UP. 18:43 Respiratory: Positive for INT COUGH SOB, AFTER SMOKING RELIEVED WITH INHALER. 18:43 All other systems are negative. Exam: 18:43 Eyes: Pupils equal round and reactive to light, extra-ocular motions intact. Lids and gs lashes normal. Conjunctiva and sclera are non-icteric and not injected. Cornea within normal limits. Periorbital areas with no swelling, redness, or edema. ENT: Nares patent. No nasal discharge, no septal abnormalities noted. Tympanic membranes are normal and external auditory canals are clear. Oropharynx with no redness, swelling, or masses, exudates, or evidence of obstruction, uvula midline. Mucous membranes moist. Neck: Trachea midline, no thyromegaly or masses palpated, and no cervical lymphadenopathy. Supple, full range of motion without nuchal rigidity, or vertebral point tenderness. No Meningismus. Chest/axilla: Normal chest wall appearance and motion. Nontender with no deformity. No lesions are appreciated. Cardiovascular: Regular rate and rhythm with a normal S1 and S2. No gallops, murmurs, or rubs. Normal PMI, no JVD. No pulse deficits. Respiratory: Lungs have equal breath sounds bilaterally, clear to auscultation and percussion. No rales, rhonchi or wheezes noted. No increased work of breathing, no retractions or nasal flaring. Abdomen/GI: Soft, non-tender, with normal bowel sounds. No distension or tympany. No guarding or rebound. No evidence of tenderness throughout. Back: No spinal tenderness. No costovertebral tenderness. Full range of motion. MS/ Extremity: Pulses equal, no cyanosis. Neurovascular intact. Full, normal range of motion. Neuro: Awake and alert, GCS 15, oriented to person, place, time, and situation. Cranial nerves II-XII grossly intact. Motor strength 5/5 in all extremities. Sensory grossly intact. Cerebellar exam normal. Normal gait. 18:43 Constitutional: The patient appears alert, awake. 18:43 Head/face: Noted is swelling, that is mild, of the right cheek and left cheek. 18:43 Skin: rash a mild rash is noted, rash can be described as erythematous, on the right cheek and left cheek. Vital Signs: 18:08 BP 138 / 94; Pulse 96; Resp 16 S; Temp 97.9(O); Pulse Ox 96% on R/A; Weight 122.47 kg 7 (R); Height 6 ft. 3 in. (190.50 cm) (R); Pain 7/10; 18:08 Body Mass Index 33.75 (122.47 kg, 190.50 cm) 7 MDM: 18:18 Patient medically screened. gs 18:43 Differential diagnosis: angioedema, non IgE mediated drug reaction urticaria. Data gs reviewed: vital signs, nurses notes. Counseling: I had a detailed discussion with the patient and/or guardian regarding: the historical points, exam findings, and any diagnostic results supporting the discharge/admit diagnosis, to return to the emergency department if symptoms worsen or persist or if there are any questions or concerns that arise at home, smoking cessation. NEED FOR EVALUATION INTERMITTENT CHEST PAIN. Response to treatment: the patient's symptoms have mildly improved after treatment. Administered Medications: No medications were administered Disposition: 05/07/19 18:19 Discharged to Home. Impression: Allergy status to drugs, medicaments and biological substances, Tinnitus, right ear. - Condition is Stable. - Discharge Instructions: Drug Allergy, [id number], Steps to Quit Smoking, Managing Your Hypertension. - Prescriptions for Prednisone 20 mg Oral Tablet - take 1 tablet by ORAL route once daily for 5 days; 5 tablet. Zyrtec 10 mg Oral Tablet - take 1 tablet by ORAL route once daily As needed; 30 tablet. - Medication Reconciliation Form, Thank You Letter, Antibiotic Education, Prescription Opioid Use form. - Follow up: Marifer Jones MD; When: 2 - 3 days; Reason: Re-evaluation by your physician. - Notes: STOP AZITHROMYCIN, SEE PCP FOR CHEST DISCOMFORT, DR MASSEY FOR RINGING IN EAR Signatures: Jo Szymanski RN RN jl7 Eyal Prado MD MD gs Corrections: (The following items were deleted from the chart) 18:37 18:19 05/07/2019 18:19 Discharged to Home. Impression: Allergy status to drugs, jl7 medicaments and biological substances; Tinnitus, right ear. Condition is Stable. Forms are Medication Reconciliation Form, Thank You Letter, Antibiotic Education, Prescription Opioid Use. Follow up: Marifer Jones; When: 2 - 3 days; Reason: Re-evaluation by your physician. gs
== END 2019-05-07 18:37 | disposition home or self-care (01) ==
LOC: ER 17:42
DX: R21 Rash and other nonspecific skin eruption (principal); H93.11 Tinnitus, right ear; Z88.9 Allergy status to unspecified drugs, medicaments and biological substances; F17.210 Nicotine dependence, cigarettes, uncomplicated
CPT/HCPCS: 99283

== ENCOUNTER 2019-06-20 12:01 | Emergency (ER) | payer SELFPAY ==
[2019-06-20] MEDS ORDERED: FAMOTIDINE 20 MG/2 ML VIAL IV ONE (13:07)
[2019-06-20] MEDS ORDERED: NA CHLORIDE 0.9% 2,000 ML ONE (13:07)
[2019-06-20] MEDS ORDERED: ONDANSETRON 4 MG/2 ML VIAL ONE (13:07)
[2019-06-20 13:24] LABS: Absolute Lymphocytes (CBC) 0.6 K/uL (0.7-4.9); Basophils % 0.3 % (0-1.3); Hematocrit 47.3 % (39.6-49.0); Lymphocytes % 7.6 % (15.3-44.8); MPV 9.2 fL (7.6-11.3)
[2019-06-20 13:28] LABS: Protime INR 1.04
[2019-06-20 13:37] LABS: Bilirubin Direct 0.2 mg/dL (0-0.2); Potassium 4.5 mmol/L (3.5-5.1); Protein, Total 7.2 g/dL (6.4-8.2)
[2019-06-20 13:39] LABS: CKMB Creatine Kinase MB 1.9 ng/mL (0.3-3.6); Creatine Phosphokinase 185 U/L (39-308); Magnesium 1.9 mg/dL (1.8-2.4); NT PRO-BNP 9 pg/mL (<125); Troponin (Emerg Dept Use Only) < 0.02 ng/mL (0.0-0.045)
--- NOTE | 2019-06-20 13:42 | RAD REPORT ---
EXAM DESCRIPTION: RAD - Chest Single View - 06/20/2019 1:34 pm CLINICAL HISTORY: ABDOMINAL DISTENTION Chest pain. COMPARISON: Chest Single View dated 12/08/2017; CHEST SINGLE VIEW dated 01/21/2014 FINDINGS: Portable technique limits examination quality. The lungs are grossly clear. The heart is normal in size. No displaced fractures. IMPRESSION: No acute intrathoracic process suspected.
[2019-06-20] MEDS ORDERED: NA CHLORIDE 0.9% 1,000 ML ONE (14:43)
--- NOTE | 2019-06-20 14:57 | ER ---
Nurse's Notes [facility] Name: Jae Heredia Age: 38 yrs Sex: Male : 1980 Arrival Date: 06/20/2019 Time: 12:03 Bed 26 Private MD: Diagnosis: Vomiting;Abdominal tenderness-enteritis;Weakness;Volume depletion;Unspecified kidney failure-renal insufficency Presentation: 06/20 12:23 Presenting complaint: Patient states: Pt states "I was feeling fine and I just started aa5 feeling really sick and vomited and now I feel shaky". Pt also c/o pain to whole body. Pt denies cough. Pt also reports diarrhea this morning. Transition of care: patient was not received from another setting of care. Onset of symptoms was June 20, 2019. Risk Assessment: Do you want to hurt yourself or someone else? Patient reports no desire to harm self or others. Initial Sepsis Screen: Does the patient meet any 2 criteria? No. Patient's initial sepsis screen is negative. Does the patient have a suspected source of infection? No. Patient's initial sepsis screen is negative. Care prior to arrival: None. 12:23 Acuity: KELLIE 3 aa5 12:23 Method Of Arrival: Ambulatory aa5 Historical: - Allergies: 12:25 steroids; aa5 - PMHx: 12:25 None; aa5 - PSHx: 12:25 Wrist - Right; aa5 - Immunization history:: Flu vaccine is not up to date. - Social history:: Smoking status: Patient uses tobacco products, smokes one pack cigarettes per day. - Ebola Screening: : No symptoms or risks identified at this time. Screenin:34 Abuse screen: Denies threats or abuse. Denies injuries from another. Nutritional ca1 screening: No deficits noted. Tuberculosis screening: No symptoms or risk factors identified. Fall Risk None identified. Assessment: 12:34 General: Appears in no apparent distress. comfortable, Behavior is calm, cooperative, ca1 appropriate for age. General: Reports feeling ill for 0-12 hours. Pain: Complains of pain in all over and abdomen Pain currently is 10 out of 10 on a pain scale. Pain began 2 hours ago. Neuro: Level of Consciousness is awake, alert, obeys commands, Oriented to person, place, time, situation, Appropriate for age. Cardiovascular: Reports lightheadedness, Heart tones S1 S2 present Capillary refill < 3 seconds Patient's skin is warm and dry. Pulses are all present. Respiratory: Airway is patent Respiratory effort is even, unlabored, Respiratory pattern is regular, symmetrical, Breath sounds are clear bilaterally. GI: Abdomen is round non-distended, Bowel sounds present X 4 quads. Abd is soft and non tender X 4 quads. Reports vomiting, once 1.5 hours ago. : No deficits noted. No signs and/or symptoms were reported regarding the genitourinary system. EENT: No deficits noted. No signs and/or symptoms were reported regarding the EENT system. Derm: Skin is intact, is healthy with good turgor, Skin is pink, warm \\T\\ dry. Musculoskeletal: Circulation, motion, and sensation intact. Capillary refill < 3 seconds, Range of motion: intact in all extremities. 13:47 Reassessment: Patient appears in no apparent distress at this time. Patient and/or ca1 family updated on plan of care and expected duration. Pain level reassessed. Patient is alert, oriented x 3, equal unlabored respirations, skin warm/dry/pink. 14:35 Reassessment: Patient appears in no apparent distress at this time. Patient and/or ca1 family updated on plan of care and expected duration. Pain level reassessed. Patient is alert, oriented x 3, equal unlabored respirations, skin warm/dry/pink. 15:19 Reassessment: Patient appears in no apparent distress at this time. Patient is alert, ca1 oriented x 3, equal unlabored respirations, skin warm/dry/pink. Oral fluids given. Tolerated well. No reports of N/V at this time. 15:21 Reassessment: 3rd NS infusing. Will discharge once completed. CT result pending. ca1 15:52 Reassessment: Patient appears in no apparent distress at this time. Patient is alert, ca1 oriented x 3, equal unlabored respirations, skin warm/dry/pink. Patient states feeling better. Vital Signs: 12:25 BP 133 / 88; Pulse 85; Resp 18 S; Temp 98.2(O); Pulse Ox 99% on R/A; Weight 124.74 kg aa5 (R); Height 6 ft. 3 in. (190.50 cm) (R); Pain 10/10; 12:59 Temp 97.7(O); ca1 13:47 BP 163 / 105; Pulse 90; Resp 17 S; Pulse Ox 94% on R/A; ca1 14:35 BP 130 / 59; Pulse 87; Resp 17 S; Pulse Ox 96% on R/A; ca1 15:19 BP 139 / 71; Pulse 91; Resp 14 S; Pulse Ox 96% on R/A; ca1 15:52 BP 145 / 85; Pulse 100; Resp 16 S; Temp 99.1; Pulse Ox 96% on R/A; ca1 12:25 Body Mass Index 34.37 (124.74 kg, 190.50 cm) aa5 ED Course: 12:03 Patient arrived in ED. as 12:23 Arm band placed on. aa5 12:25 Triage completed. aa5 12:34 Jihan Simmons, RN is Primary Nurse. ca1 12:34 Patient has correct armband on for positive identification. Bed in low position. Call ca1 light in reach. Side rails up X 1. Pulse ox on. NIBP on. Warm blanket given. 12:34 No provider procedures requiring assistance completed. ca1 12:39 Silvestre Castañeda MD is Attending Physician. blue 13:01 Initial lab(s) drawn, by hi, sent to lab. Inserted saline lock: 20 gauge in right jp3 antecubital area, using aseptic technique. Blood collected. Patient maintains SpO2 saturation greater than 95% on room air. 13:12 EKG done, by office technician. reviewed by Silvestre Castañeda MD. jp3 13:12 Ckmb Sent. jp3 13:12 CK Sent. jp3 13:12 Magnesium Sent. jp3 13:13 NT PRO-BNP Sent. jp3 13:13 PT-INR Sent. jp3 13:13 Troponin (emerg Dept Use Only) Sent. jp3 13:35 XRAY Chest (1 view) In Process Unspecified. EDMS 14:48 CT Abd/Pelvis - Without Contrast In Process Unspecified. EDMS 14:56 Christiana Francis MD is Referral Physician. blue 16:02 IV discontinued, intact, bleeding controlled, No redness/swelling at site. Pressure ca1 dressing applied. Administered Medications: 13:07 Drug: Zofran 4 mg Route: IVP; Site: right antecubital; ca1 14:43 Follow up: Response: No adverse reaction; Nausea is decreased; Vomiting decreased ca1 13:13 Drug: NS 0.9% 1000 ml Route: IV; Rate: 1 bolus; Site: right antecubital; ca1 14:30 Follow up: Response: No adverse reaction; IV Status: Completed infusion ca1 15:15 Follow up: IV Status: Completed infusion; IV Intake: 1000ml rv 13:13 Drug: NS 0.9% 1000 ml Route: IV; Rate: 1 bolus; Site: right antecubital; ca1 14:30 Follow up: Urine output 200 ml; Response: No adverse reaction; IV Status: Completed ca1 infusion 15:15 Follow up: IV Status: Completed infusion; IV Intake: 1000ml rv 13:14 Drug: Pepcid 20 mg Route: IVP; Site: right antecubital; ca1 14:43 Follow up: Response: No adverse reaction ca1 15:14 Drug: NS 0.9% 1000 ml Route: IV; Rate: 1 bolus; Site: right antecubital; rv 16:01 Follow up: Response: No adverse reaction; IV Status: Completed infusion; IV Intake: ca1 1000ml Intake: 15:15 IV: 1000ml; Total: 1000ml. rv 15:15 IV: 1000ml; Total: 2000ml. rv 16:01 IV: 1000ml; Total: 3000ml. ca1 Output: 14:30 Urine: 200ml; Total: 200ml. ca1 Outcome: 14:56 Discharge ordered by . blue 16:02 Discharged to home ambulatory, with family. ca1 16:02 Condition: stable 16:02 Discharge instructions given to patient, Instructed on discharge instructions, follow up and referral plans. medication usage, Demonstrated understanding of instructions, follow-up care, medications, Prescriptions given X 3. 16:03 Patient left the ED. ca1 Signatures: Dispatcher [employer] EDPR Silvestre Castañeda MD MD cha Martinez, Amelia as Calderon, Audri RN RN aa5 Jt Connor RN RN rv Royal Harris jp3 Jihan Simmons RN RN ca1 Corrections: (The following items were deleted from the chart) 12:59 12:34 Cardiovascular: Heart tones S1 S2 present Capillary refill < 3 seconds Patient's ca1 skin is warm and dry. Pulses are all present. ca1 15:52 15:52 Reassessment: Patient appears in no apparent distress at this time. Patient is ca1 alert, oriented x 3, equal unlabored respirations, skin warm/dry/pink. ca1
--- NOTE | 2019-06-20 14:57 | EDPHYS ---
Physician Documentation [facility] Name: Jae Heredia Age: 38 yrs Sex: Male : 1980 Arrival Date: 06/20/2019 Time: 12:03 Bed 26 Private MD: ED Physician Silvestre Castañeda HPI: 06/20 13:05 This 38 yrs old Male presents to ER via Ambulatory with complaints of blue Vomiting, Weakness. 13:05 The patient presents to the emergency department with nausea, vomiting, abdominal pain, blue of the right upper quadrant, left upper quadrant, right lower quadrant and left lower quadrant. Onset: The symptoms/episode began/occurred just prior to arrival, this morning. Possible causes: unknown. The symptoms are aggravated by nothing. The symptoms are alleviated by nothing. Associated signs and symptoms: The patient has no apparent associated signs or symptoms. Severity of symptoms: At their worst the symptoms were moderate in the emergency department the symptoms are unchanged. The patient has not experienced similar symptoms in the past. Historical: - Allergies: 12:25 steroids; aa5 - PMHx: 12:25 None; aa5 - PSHx: 12:25 Wrist - Right; aa5 - Immunization history:: Flu vaccine is not up to date. - Social history:: Smoking status: Patient uses tobacco products, smokes one pack cigarettes per day. - Ebola Screening: : No symptoms or risks identified at this time. ROS: 13:07 Constitutional: Negative for fever, chills, and weight loss, Eyes: Negative for injury, blue pain, redness, and discharge, ENT: Negative for injury, pain, and discharge, Neck: Negative for injury, pain, and swelling, Cardiovascular: Negative for chest pain, palpitations, and edema, Respiratory: Negative for shortness of breath, cough, wheezing, and pleuritic chest pain, Back: Negative for injury and pain, : Negative for injury, bleeding, discharge, and swelling, MS/Extremity: Negative for injury and deformity, Skin: Negative for injury, rash, and discoloration, Neuro: Negative for headache, weakness, numbness, tingling, and seizure, Psych: Negative for depression, anxiety, suicide ideation, homicidal ideation, and hallucinations, Allergy/Immunology: Negative for hives, rash, and allergies, Endocrine: Negative for neck swelling, polydipsia, polyuria, polyphagia, and marked weight changes, Hematologic/Lymphatic: Negative for swollen nodes, abnormal bleeding, and unusual bruising. 13:07 Abdomen/GI: Positive for abdominal pain, nausea and vomiting, abdominal cramps, of the right upper quadrant, left upper quadrant, right lower quadrant and left lower quadrant. Exam: 13:07 Constitutional: This is a well developed, well nourished patient who is awake, alert, blue and in no acute distress. Head/Face: Normocephalic, atraumatic. Eyes: Pupils equal round and reactive to light, extra-ocular motions intact. Lids and lashes normal. Conjunctiva and sclera are non-icteric and not injected. Cornea within normal limits. Periorbital areas with no swelling, redness, or edema. ENT: Nares patent. No nasal discharge, no septal abnormalities noted. Tympanic membranes are normal and external auditory canals are clear. Oropharynx with no redness, swelling, or masses, exudates, or evidence of obstruction, uvula midline. Mucous membranes moist. Neck: Trachea midline, no thyromegaly or masses palpated, and no cervical lymphadenopathy. Supple, full range of motion without nuchal rigidity, or vertebral point tenderness. No Meningismus. Chest/axilla: Normal chest wall appearance and motion. Nontender with no deformity. No lesions are appreciated. Cardiovascular: Regular rate and rhythm with a normal S1 and S2. No gallops, murmurs, or rubs. Normal PMI, no JVD. No pulse deficits. Respiratory: Lungs have equal breath sounds bilaterally, clear to auscultation and percussion. No rales, rhonchi or wheezes noted. No increased work of breathing, no retractions or nasal flaring. Back: No spinal tenderness. No costovertebral tenderness. Full range of motion. Male : Normal genitalia with no discharge or lesions. Skin: Warm, dry with normal turgor. Normal color with no rashes, no lesions, and no evidence of cellulitis. MS/ Extremity: Pulses equal, no cyanosis. Neurovascular intact. Full, normal range of motion. Neuro: Awake and alert, GCS 15, oriented to person, place, time, and situation. Cranial nerves II-XII grossly intact. Motor strength 5/5 in all extremities. Sensory grossly intact. Cerebellar exam normal. Normal gait. Psych: Awake, alert, with orientation to person, place and time. Behavior, mood, and affect are within normal limits. 13:07 Abdomen/GI: Inspection: abdomen appears normal, Bowel sounds: normal, Palpation: mild abdominal tenderness, in the right upper quadrant, left upper quadrant, right lower quadrant and left lower quadrant, Liver: no appreciated palpable abnormalities, Hernia: not appreciated. Vital Signs: 12:25 BP 133 / 88; Pulse 85; Resp 18 S; Temp 98.2(O); Pulse Ox 99% on R/A; Weight 124.74 kg aa5 (R); Height 6 ft. 3 in. (190.50 cm) (R); Pain 10/10; 12:59 Temp 97.7(O); ca1 13:47 BP 163 / 105; Pulse 90; Resp 17 S; Pulse Ox 94% on R/A; ca1 14:35 BP 130 / 59; Pulse 87; Resp 17 S; Pulse Ox 96% on R/A; ca1 15:19 BP 139 / 71; Pulse 91; Resp 14 S; Pulse Ox 96% on R/A; ca1 15:52 BP 145 / 85; Pulse 100; Resp 16 S; Temp 99.1; Pulse Ox 96% on R/A; ca1 12:25 Body Mass Index 34.37 (124.74 kg, 190.50 cm) aa5 MDM: 12:39 Patient medically screened. [facility] 13:09 Data reviewed: vital signs, nurses notes, lab test result(s), EKG, radiologic studies, [facility] CT scan, plain films. 06/20 12:48 Order name: Basic Metabolic Panel; Complete Time: 14:32 ca1 06/20 12:48 Order name: CBC with Diff ca1 06/20 12:48 Order name: Creatinine for Radiology; Complete Time: 14:32 ca1 06/20 12:48 Order name: Hepatic Function; Complete Time: 14:32 ca1 06/20 12:48 Order name: Lipase; Complete Time: 14:32 ca1 06/20 13:03 Order name: Magnesium; Complete Time: 14:32 blue 06/20 13:03 Order name: NT PRO-BNP; Complete Time: 14:32 blue 06/20 13:03 Order name: PT-INR; Complete Time: 14:32 blue 06/20 13:03 Order name: Troponin (emerg Dept Use Only); Complete Time: 14:32 blue 06/20 13:03 Order name: XRAY Chest (1 view); Complete Time: 14:32 [facility] 06/20 13:03 Order name: CK; Complete Time: 14:32 [facility] 06/20 13:03 Order name: Ckmb; Complete Time: 14:32 [facility] 06/20 14:33 Order name: CT Abd/Pelvis - Without Contrast; Complete Time: 15:30 [facility] 06/20 15:08 Order name: Urine Dipstick--Ancillary (enter results) 06/20 12:48 Order name: IV Saline Lock; Complete Time: 12:58 [facility] 06/20 12:48 Order name: Labs collected and sent; Complete Time: 12:58 [facility] 06/20 13:03 Order name: EKG; Complete Time: 13:04 [facility] 06/20 13:03 Order name: Cardiac monitoring; Complete Time: 13:12 [facility] 06/20 13:03 Order name: EKG - Nurse/Tech; Complete Time: 13:12 [facility] 06/20 13:03 Order name: O2 Per Protocol; Complete Time: 13:04 [facility] 06/20 13:03 Order name: O2 Sat Monitoring; Complete Time: 13:04 [facility] 06/20 14:33 Order name: PO challenge; Complete Time: 14:42 [facility] 06/20 14:55 Order name: Urine Dipstick-Ancillary (obtain specimen); Complete Time: 15:07 [facility] Administered Medications: 13:07 Drug: Zofran 4 mg Route: IVP; Site: right antecubital; ca1 14:43 Follow up: Response: No adverse reaction; Nausea is decreased; Vomiting decreased ca1 13:13 Drug: NS 0.9% 1000 ml Route: IV; Rate: 1 bolus; Site: right antecubital; ca1 14:30 Follow up: Response: No adverse reaction; IV Status: Completed infusion ca1 15:15 Follow up: IV Status: Completed infusion; IV Intake: 1000ml rv 13:13 Drug: NS 0.9% 1000 ml Route: IV; Rate: 1 bolus; Site: right antecubital; ca1 14:30 Follow up: Urine output 200 ml; Response: No adverse reaction; IV Status: Completed ca1 infusion 15:15 Follow up: IV Status: Completed infusion; IV Intake: 1000ml rv 13:14 Drug: Pepcid 20 mg Route: IVP; Site: right antecubital; ca1 14:43 Follow up: Response: No adverse reaction ca1 15:14 Drug: NS 0.9% 1000 ml Route: IV; Rate: 1 bolus; Site: right antecubital; rv 16:01 Follow up: Response: No adverse reaction; IV Status: Completed infusion; IV Intake: ca1 1000ml Disposition: 06/20/19 14:56 Discharged to Home. Impression: Vomiting, Abdominal tenderness - enteritis, Weakness, Volume depletion, Unspecified kidney failure - renal insufficency. - Condition is Stable. - Discharge Instructions: Abdominal Pain, Adult, Nausea and Vomiting, Adult, Weakness, Nausea and Vomiting, Adult, [id number], Abdominal Pain, Adult, [id number]-[id number], Weakness, Ewre-et-Menb. - Prescriptions for Bentyl 20 mg Oral Tablet - take 1 tablet by ORAL route every 6 hours As needed; 20 tablet. Pepcid 20 mg Oral Tablet - take 1 tablet by ORAL route every 12 hours for 10 days; 20 tablet. Zofran 4 mg Oral Tablet - take 1 tablet by ORAL route every 12 hours As needed; 20 tablet. - Medication Reconciliation Form, Thank You Letter, Antibiotic Education, Prescription Opioid Use form. - Follow up: Private Physician; When: 2 - 3 days; Reason: Recheck today's complaints, Continuance of care, Re-evaluation by your physician. Follow up: Christiana Francis; When: 2 - 3 days; Reason: Recheck today's complaints, Re-evaluation by your physician. - Problem is new. - Symptoms have improved. Signatures: Dispatcher [employer] EDMS Silvestre Castañeda MD MD cha Calderon, Audri, RN RN aa5 Jt Connor RN RN rv Acob, Jihan RN RN ca1 Corrections: (The following items were deleted from the chart) 15:31 14:56 06/20/2019 14:56 Discharged to Home. Impression: Vomiting; Abdominal tenderness; blue Weakness; Volume depletion; Unspecified kidney failure - renal insufficency. Condition is Stable. Discharge Instructions: Abdominal Pain, Adult, Nausea and Vomiting, Adult, Weakness, Nausea and Vomiting, Adult, [id number], Abdominal Pain, Adult, Athx-rb-Uduz, Weakness, [id number]-[id number]. Prescriptions for Bentyl 20 mg Oral Tablet - take 1 tablet by ORAL route every 6 hours As needed; 20 tablet, Pepcid 20 mg Oral Tablet - take 1 tablet by ORAL route every 12 hours for 10 days; 20 tablet, Zofran 4 mg Oral Tablet - take 1 tablet by ORAL route every 12 hours As needed; 20 tablet. and Forms are Medication Reconciliation Form, Thank You Letter, Antibiotic Education, Prescription Opioid Use. Follow up: Private Physician; When: 2 - 3 days; Reason: Recheck today's complaints, Continuance of care, Re-evaluation by your physician. Follow up: Christiana Francis; When: 2 - 3 days; Reason: Recheck today's complaints, Re-evaluation by your physician. Problem is new. Symptoms have improved. [facility] 16:03 15:31 06/20/2019 14:56 Discharged to Home. Impression: Vomiting; Abdominal tenderness - ca1 enteritis; Weakness; Volume depletion; Unspecified kidney failure - renal insufficency. Condition is Stable. Discharge Instructions: Abdominal Pain, Adult, Nausea and Vomiting, Adult, Weakness, Nausea and Vomiting, Adult, Grcu-[id number], Abdominal Pain, Adult, Klkx-mq-Znfq, Weakness, Vrjq-uy-Gcsf. Prescriptions for Bentyl 20 mg Oral Tablet - take 1 tablet by ORAL route every 6 hours As needed; 20 tablet, Pepcid 20 mg Oral Tablet - take 1 tablet by ORAL route every 12 hours for 10 days; 20 tablet, Zofran 4 mg Oral Tablet - take 1 tablet by ORAL route every 12 hours As needed; 20 tablet. and Forms are Medication Reconciliation Form, Thank You Letter, Antibiotic Education, Prescription Opioid Use. Follow up: Private Physician; When: 2 - 3 days; Reason: Recheck today's complaints, Continuance of care, Re-evaluation by your physician. Follow up: Christiana Francis; When: 2 - 3 days; Reason: Recheck today's complaints, Re-evaluation by your physician. Problem is new. Symptoms have improved. [facility]
[2019-06-20 15:17] LABS: Urine Blood NEGATIVE (NEG); Urine Glucose NEGATIVE (NEG); Urine Protein NEGATIVE (NEG); Urine pH 7.5 (5.0-7.0)
--- NOTE | 2019-06-20 15:18 | RAD REPORT ---
EXAM DESCRIPTION: CT - Abdomen Pelvis Wo Contrast - 06/20/2019 2:46 pm CLINICAL HISTORY: Abdominal pain diarrhea COMPARISON: September 2018 TECHNIQUE: Computed axial tomography of the abdomen and pelvis was obtained. IV and oral contrast we re not requested. All CT scans are performed using dose optimization technique as appropriate and may include automated exposure control or mA/KV adjustment according to patient size. FINDINGS: The evaluation of solid organs, vessels and bowel is limited secondary to the lack of con trast administration. Small bilateral nonobstructing renal calculi The liver, spleen, pancreas, adrenals appear grossly normal. The appendix is normal. There is no evidence of diverticulitis. Small inguinal hernias contain fat Fluid in nondilated small bowel IMPRESSION: Small bilateral nonobstructing renal calculi Fluid in nondilated small bowel may indicate enteritis
[2019-06-20 16:13] VITALS: O2SAT 96
[2019-06-20 16:16] VITALS: BP 145/85; TEMP 99.1
--- NOTE | 2019-06-20 18:26 | EKG ---
Test Date: 2019-06-20 Test Time: 13:11:00 University Counselor: COLEEN/S MEASUREMENT RESULTS: Intervals: Rate: 83 OR: 162 QRSD: 92 QT: 334 QTc: 392 Gaffney: P: 44 OR: 162 QRS: 76 T: 49 INTERPRETIVE STATEMENTS: Normal sinus rhythm Normal ECG Compared to ECG 10/19/2018 11:30:50 No significant changes Electronically Signed On 06-20-19 18:24:50 CDT by Jose Hernandez
[2019-06-20 19:18] LABS: Blood Morphology Comment NOT SEEN (NOT SEEN); Platelet Estimate ADEQ; Urine White Blood Cell Casts OK
== END 2019-06-20 16:03 | disposition home or self-care (01) ==
LOC: ER 12:01
DX: E86.9 Volume depletion, unspecified (principal); R53.1 Weakness; K52.9 Noninfective gastroenteritis and colitis, unspecified; N28.9 Disorder of kidney and ureter, unspecified; F17.210 Nicotine dependence, cigarettes, uncomplicated; Z88.8 Allergy status to other drugs, medicaments and biological substances
CPT/HCPCS: 36415; 71045; 74176; 80048; 80076; 81003; 82550; 82553; 83690; 83735; 83880; 84484; 85025; 85610; 93005; 96361; 96374; 96375; 99285; J2405; J7030

== ENCOUNTER 2019-08-23 09:16 | Emergency (ER) | payer SELFPAY ==
[2019-08-23] MEDS ORDERED: dexAMETHasone 10 MG/ML VIAL ONE (11:01)
[2019-08-23] MEDS ORDERED: KETOROLAC 30 MG/ML INJ ONE (11:01)
--- NOTE | 2019-08-23 11:36 | ER ---
Nurse's Notes [facility] Name: Jae Heredia Age: 38 yrs Sex: Male : 1980 Arrival Date: 08/23/2019 Time: 09:18 Bed 24 Private MD: Diagnosis: Pain in hand and fingers Presentation: 08/23 09:28 Presenting complaint: Patient states: my RIGHT hand started going numb a couple of days tw2 on tingling and going numb, i had surgery on my wrist in 2000, i have had problems since then on and off but it has never been like this, i am right handed. 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 Transition of care: patient was not received from another setting of care. Onset of symptoms was August 23, 2019. Risk Assessment: Do you want to hurt yourself or someone else? Patient reports no desire to harm self or others. Initial Sepsis Screen: Does the patient meet any 2 criteria? No. Patient's initial sepsis screen is negative. Does the patient have a suspected source of infection? No. Patient's initial sepsis screen is negative. Care prior to arrival: None. 09:28 Method Of Arrival: Ambulatory tw2 09:28 Acuity: KELLIE 4 tw2 Triage Assessment: 09:30 General: Appears in no apparent distress. Behavior is calm, cooperative, appropriate tw2 for age. Pain: Complains of pain in right hand. Historical: - Allergies: :31 steroids; "my whole face turns red"; tw2 - Home Meds: : None [Active]; tw2 - PMHx: : None; tw2 - PSHx: :31 Wrist - Right; tw2 - Immunization history:: Adult Immunizations. - Social history:: Smoking status: Patient uses tobacco products, smokes one pack cigarettes per day. - Ebola Screening: : Patient denies travel to an Ebola-affected area in the 21 days before illness onset. Screenin:18 Abuse screen: Denies threats or abuse. Denies injuries from another. Nutritional ss screening: No deficits noted. Tuberculosis screening: Never had TB. Fall Risk None identified. Assessment: 11:18 General: Appears in no apparent distress. comfortable, Behavior is calm, cooperative. ss Pain: Complains of pain in right hand Pain currently is 10 out of 10 on a pain scale. Quality of pain is described as aching, tender, Pain began 1 week Is continuous. Neuro: Level of Consciousness is awake, alert, obeys commands. Cardiovascular: Capillary refill < 3 seconds is brisk in bilateral fingers Pulses are palpable in right radial artery and left radial artery. Respiratory: Airway is patent Respiratory effort is even, unlabored, Respiratory pattern is regular, symmetrical. GI: No signs and/or symptoms were reported involving the gastrointestinal system. EENT: Oral mucosa is moist. Derm: Skin is intact, is healthy with good turgor, Skin is pink, warm \\T\\ dry. normal. Musculoskeletal: Circulation, motion, and sensation intact. Range of motion: intact in all extremities. Vital Signs: 09:29 BP 147 / 92; Pulse 81; Resp 17; Temp 97.8(TE); Pulse Ox 98% on R/A; Weight 124.74 kg; tw2 Height 6 ft. 3 in. (190.50 cm) (R); Pain 10; 09:29 Body Mass Index 34.37 (124.74 kg, 190.50 cm) tw2 ED Course: 09:18 Patient arrived in ED. rg4 09:29 Triage completed. tw2 09:29 Arm band placed on. tw2 10:14 Adrian Francisco PA is PHCP. [facility] 10:14 Silviano Fleming MD is Attending Physician. [facility] 10:33 Jazmine Arnold, TANISHA is Primary Nurse. ss 11:18 Patient has correct armband on for positive identification. Bed in low position. Call ss light in reach. 11:35 Chavo Capone MD is Referral Physician. jm 11:35 Anival Funez MD is Referral Physician. [facility] 11:40 No provider procedures requiring assistance completed. Patient did not have IV access ss during this emergency room visit. Administered Medications: 11:12 Drug: Ketorolac 30 mg Route: IM; Site: left deltoid; ss 11:40 Follow up: Response: No adverse reaction; Pain is decreased ss 11:14 Not Given (Pt reports that he once had a moderate reaction to another steroid in the ss past, possibly prednisone. Adrian Notified and states to hold medication): Dexamethasone 10 mg IM once Outcome: 11:35 Discharge ordered by . christopher 11:40 Discharged to home ambulatory. ss 11:40 Condition: good 11:40 Discharge instructions given to patient, Instructed on discharge instructions, follow up and referral plans. medication usage, Demonstrated understanding of instructions, follow-up care, medications, Prescriptions given X 1. 11:42 Patient left the ED. Signatures: Adrian Francisco PA PA jmm Smirch, Shelby, RN RN Mindi Christensen RN RN 2 Malka Hickman 4 Corrections: (The following items were deleted from the chart) 11:20 11:18 Cardiovascular: Capillary refill < 3 seconds is brisk in bilateral fingers ss ss
--- NOTE | 2019-08-23 11:37 | EDPHYS ---
Physician Documentation [facility] Name: Jae Heredia Age: 38 yrs Sex: Male : 1980 Arrival Date: 08/23/2019 Time: 09:18 Bed 24 Private MD: ED Physician Silviano Fleming HPI: 08/23 10:45 This 38 yrs old Male presents to ER via Ambulatory with complaints of Hand jmm Pain, Numbness Of Hand. 10:45 The patient or guardian reports pain. jmm 10:45 The complaints affect the right hand. Onset: The symptoms/episode began/occurred jmm gradually. Modifying factors: The symptoms are alleviated by nothing, the symptoms are aggravated by movement. Associated signs and symptoms: Pertinent positives:. This is a 38 year old male with no chronic medical conditions that presents to the ED with complaints of decreased sensation to his right hand. Patient describes it as pain/ throbbing, sensation like the hand is falling asleep. patient states having a ligament surgery in 2000. Recently began using power tools. Denies any known in jury. . Historical: - Allergies: 09:31 steroids; "my whole face turns red"; tw2 - Home Meds: 09:31 None [Active]; tw2 - PMHx: 09:31 None; tw2 - PSHx: 09:31 Wrist - Right; tw2 - Immunization history:: Adult Immunizations. - Social history:: Smoking status: Patient uses tobacco products, smokes one pack cigarettes per day. - Ebola Screening: : Patient denies travel to an Ebola-affected area in the 21 days before illness onset. ROS: 10:45 Constitutional: Negative for fever, chills, and weight loss, Cardiovascular: Negative jmm for chest pain, palpitations, and edema, Respiratory: Negative for shortness of breath, cough, wheezing, and pleuritic chest pain. 10:45 Back: Negative for injury and pain. 10:45 MS/extremity: Positive for pain. 10:45 Neuro: Positive for numbness. 10:45 All other systems are negative. Exam: 10:45 Constitutional: This is a well developed, well nourished patient who is awake, alert, jmm and in no acute distress. Head/Face: atraumatic. Eyes: EOMI, no conjunctival erythema appreciated ENT: Moist Mucus Membranes Neck: Trachea midline, Supple Chest/axilla: Normal chest wall appearance and motion. Cardiovascular: Regular rate and rhythm. No edema appreciated Respiratory: Normal respirations, no respiratory distress appreciated Abdomen/GI: Non distended, soft Back: Normal ROM Skin: General appearance color normal 10:45 Musculoskeletal/extremity: FROM is appreciated to the right hand with decreased appraiser strength. Pain is localized to the 3rd, 4th, and 5th fingers. Mainly to the 3rd finger which radiates down to the wrist. Full radial pulse appreciated, compartments are soft. < 2 sec distal cap refill. . 10:45 Skin: Appearance: Color: normal in color. 10:45 Neuro: Orientation: is normal, Mentation: is normal, Memory: is normal, Motor: is normal. 10:45 Psych: Behavior/mood is pleasant, cooperative. Vital Signs: 09:29 BP 147 / 92; Pulse 81; Resp 17; Temp 97.8(TE); Pulse Ox 98% on R/A; Weight 124.74 kg; tw2 Height 6 ft. 3 in. (190.50 cm) (R); Pain 10; 09:29 Body Mass Index 34.37 (124.74 kg, 190.50 cm) tw2 MDM: 10:39 Patient medically screened. [facility] 11:32 Data reviewed: vital signs, nurses notes. Counseling: I had a detailed discussion with christopher the patient and/or guardian regarding: the historical points, exam findings, and any diagnostic results supporting the discharge/admit diagnosis, the need for outpatient follow up, to return to the emergency department if symptoms worsen or persist or if there are any questions or concerns that arise at home. ED course: Hand is NVI. Patient is advised to follow up with hand surgery for reevaluation. Appears to be due to overuse. Patient is allergeric to steroids. Unable to administer steroid therapy. . Administered Medications: 11:12 Drug: Ketorolac 30 mg Route: IM; Site: left deltoid; ss 11:40 Follow up: Response: No adverse reaction; Pain is decreased ss 11:14 Not Given (Pt reports that he once had a moderate reaction to another steroid in the ss past, possibly prednisone. Adrian Notified and states to hold medication): Dexamethasone 10 mg IM once Disposition: 13:40 Co-signature as Attending Physician, Silviano Fleming MD I agree with the assessment and kdr plan of care. Disposition: 08/23/19 11:35 Discharged to Home. Impression: Pain in hand and fingers. - Condition is Stable. - Discharge Instructions: Neuropathic Pain. - Prescriptions for indomethacin 75 mg Oral capsule, extended release - take 1 capsule by ORAL route 2 times per day with food; 20 capsule. - Medication Reconciliation Form, Thank You Letter, Antibiotic Education, Prescription Opioid Use form. - Follow up: Chavo Capone MD; When: 2 - 3 days; Reason: Recheck today's complaints, Continuance of care, Re-evaluation by your physician. Follow up: Anival Funez MD; When: 2 - 3 days; Reason: Recheck today's complaints, Continuance of care, Re-evaluation by your physician. Signatures: Silviano Fleming MD MD [facility] [address] Adrian Francisco PA PA jmm Smirch, Shelby, RN RN ss Mindi Christensen RN RN tw2 Corrections: (The following items were deleted from the chart) 11:42 11:35 08/23/2019 11:35 Discharged to Home. Impression: Pain in hand and fingers. ss Condition is Stable. Forms are Medication Reconciliation Form, Thank You Letter, Antibiotic Education, Prescription Opioid Use. Follow up: Chavo Capone; When: 2 - 3 days; Reason: Recheck today's complaints, Continuance of care, Re-evaluation by your physician. Follow up: Anival Funez; When: 2 - 3 days; Reason: Recheck today's complaints, Continuance of care, Re-evaluation by your physician. christopher
[2019-08-23 12:34] VITALS: BP 147/92; TEMP 97.8; O2SAT 98
== END 2019-08-23 11:42 | disposition home or self-care (01) ==
LOC: ER 09:16
DX: M25.541 Pain in joints of right hand (principal); Z88.8 Allergy status to other drugs, medicaments and biological substances; F17.210 Nicotine dependence, cigarettes, uncomplicated
CPT/HCPCS: 96372; 99283; J1100

== ENCOUNTER 2019-09-21 17:51 | Emergency (ER) | payer SELFPAY ==
[2019-09-21] MEDS ORDERED: HYDROCODONE/APAP 7.5/325 MG TAB ONE (19:26)
[2019-09-21] MEDS ORDERED: IBUPROFEN 400 MG TAB ONE (19:27)
[2019-09-21] MEDS ORDERED: IBUPROFEN 200 MG TAB PO ONE (19:27)
--- NOTE | 2019-09-21 19:41 | RAD REPORT ---
EXAM DESCRIPTION: RAD - Shoulder Left 2 View - 09/21/2019 7:32 pm CLINICAL HISTORY: Left shoulder pain FINDINGS: No fracture or dislocation is seen.
--- NOTE | 2019-09-21 19:50 | ER ---
Nurse's Notes [facility] Name: Jae Heredia Age: 39 yrs Sex: Male : 1980 Arrival Date: 09/21/2019 Time: 17:55 Bed 12 Private MD: Diagnosis: Contusion of left shoulder Presentation: 09/21 18:14 Presenting complaint: Patient states: "I think I hurt my arm a few days ago picking aa5 something up and today I was messing with the bed of my truck and I think I hurt it again". Pt c/o pain to left shoulder. Transition of care: patient was not received from another setting of care. Onset of symptoms was September 21, 2019. Risk Assessment: Do you want to hurt yourself or someone else? Patient reports no desire to harm self or others. Initial Sepsis Screen: Does the patient meet any 2 criteria? No. Patient's initial sepsis screen is negative. Does the patient have a suspected source of infection? No. Patient's initial sepsis screen is negative. Care prior to arrival: None. 18:14 Method Of Arrival: Ambulatory aa5 18:14 Acuity: KELLIE 4 aa5 Historical: - Allergies: 18:17 steroids; "my whole face turns red"; aa5 - Home Meds: 18:17 None [Active]; aa5 - PMHx: 18:17 None; aa5 - PSHx: 18:17 Wrist - Right; aa5 - Immunization history:: Flu vaccine is not up to date. - Social history:: Smoking status: Patient uses tobacco products, smokes one pack cigarettes per day. - Ebola Screening: : No symptoms or risks identified at this time. Screenin:18 Abuse screen: Denies threats or abuse. Denies injuries from another. Nutritional aa1 screening: No deficits noted. Tuberculosis screening: No symptoms or risk factors identified. Fall Risk None identified. Assessment: 19:18 General: Appears in no apparent distress. uncomfortable, Behavior is calm, cooperative, aa1 appropriate for age. Pain: Complains of pain in left lateral anterior chest and left arm Quality of pain is described as aching, throbbing, Pain began 2-3 days ago. Is continuous. Neuro: Level of Consciousness is awake, alert, obeys commands, Oriented to person, place, time, situation, Moves all extremities. Cardiovascular: Pulses are palpable in right radial artery and left radial artery. Respiratory: Airway is patent Respiratory effort is even, unlabored, Respiratory pattern is regular, symmetrical. GI: No signs and/or symptoms were reported involving the gastrointestinal system. : No signs and/or symptoms were reported regarding the genitourinary system. EENT: No signs and/or symptoms were reported regarding the EENT system. Derm: Skin is intact, is healthy with good turgor, Skin is pink, warm \\T\\ dry. Musculoskeletal: Circulation, motion, and sensation intact. Capillary refill < 3 seconds, Range of motion: limited in left shoulder. 19:59 Reassessment: Patient appears in no apparent distress at this time. Patient is alert, aa1 oriented x 3, equal unlabored respirations, skin warm/dry/pink. Discussed d/c \\T\\ f/u instructions with pt; denies questions or concerns at this time. Ambulatory to lobby with steady gait. Vital Signs: 18:18 BP 144 / 92; Pulse 97; Resp 18 S; Temp 97.9(TE); Pulse Ox 97% on R/A; Weight 127.01 kg aa5 (R); Height 6 ft. 3 in. (190.50 cm) (R); Pain 10/10; 19:59 BP 137 / 89; Pulse 89; Resp 18; Temp 98.0; Pulse Ox 98% on R/A; Pain 7/10; aa1 18:18 Body Mass Index 35.00 (127.01 kg, 190.50 cm) aa5 ED Course: 17:55 Patient arrived in ED. jg7 18:14 Arm band placed on. aa5 18:17 Triage completed. aa5 19:10 Gt Zamora PA is PHCP. jr8 19:10 Silvestre Castañeda MD is Attending Physician. jr8 19:18 Patient has correct armband on for positive identification. Bed in low position. Call aa1 light in reach. 19:22 Shantel Roldan, TANISHA is Primary Nurse. aa1 19:32 Shoulder Left (2 View) XRAY In Process Unspecified. EDMS 19:49 Jeffery Pennington MD is Referral Physician. jr8 19:59 No provider procedures requiring assistance completed. Patient did not have IV access aa1 during this emergency room visit. Sling applied to left arm. Administered Medications: 19:26 Drug: Ibuprofen 600 mg Route: PO; aa1 19:59 Follow up: Response: No adverse reaction; Medication administered at discharge. aa1 19:26 Drug: [place] (7.5 mg-325 mg) 1 tabs Route: PO; aa1 19:58 Follow up: Response: No adverse reaction; Medication administered at discharge. aa1 Outcome: 19:50 Discharge ordered by . rene 19:59 Discharged to home ambulatory, with family. aa1 19:59 Condition: good 19:59 Discharge instructions given to patient, family, Instructed on discharge instructions, follow up and referral plans. medication usage, Demonstrated understanding of instructions, follow-up care, medications, Prescriptions given X 1. 20:01 Patient left the ED. aa1 Signatures: Dispatcher [employer] EDMS Shantel Roldan RN RN aa1 Mis Brooks RN RN aa5 Gt Zamora PA PA jr8 Becca Simmons7
--- NOTE | 2019-09-21 19:50 | EDPHYS ---
Physician Documentation [facility] Name: Jae Heredia Age: 39 yrs Sex: Male : 1980 Arrival Date: 09/21/2019 Time: 17:55 Bed 12 Private MD: ED Physician Silvestre Castañeda HPI: 09/21 19:28 This 39 yrs old Male presents to ER via Ambulatory with complaints of Arm jr8 Pain. 19:28 The patient or guardian complains of decreased range of motion, pain, tenderness. The jr8 complaints affect the anterior aspect of left shoulder. Context: The problem was sustained outdoors. Onset: The symptoms/episode began/occurred acutely, 2 day(s) ago. Modifying factors: The symptoms are alleviated by nothing. the symptoms are aggravated by movement. Associated signs and symptoms: The patient has no apparent associated signs or symptoms. Severity of symptoms: At their worst the symptoms were moderate, in the emergency department the symptoms are unchanged. The patient has not experienced similar symptoms in the past. The patient has not recently seen a physician. Patient stated that he was lifting bed of truck into his truck came down and hit him in left shoulder. Stated that he has had pain since then that radiates down arm . Historical: - Allergies: 18:17 steroids; "my whole face turns red"; aa5 - Home Meds: 18:17 None [Active]; aa5 - PMHx: 18:17 None; aa5 - PSHx: 18:17 Wrist - Right; aa5 - Immunization history:: Flu vaccine is not up to date. - Social history:: Smoking status: Patient uses tobacco products, smokes one pack cigarettes per day. - Ebola Screening: : No symptoms or risks identified at this time. ROS: 19:28 Eyes: Negative for injury, pain, redness, and discharge, ENT: Negative for injury, jr8 pain, and discharge, Neck: Negative for injury, pain, and swelling, Cardiovascular: Negative for chest pain, palpitations, and edema, Respiratory: Negative for shortness of breath, cough, wheezing, and pleuritic chest pain, Abdomen/GI: Negative for abdominal pain, nausea, vomiting, diarrhea, and constipation, Back: Negative for injury and pain, Skin: Negative for injury, rash, and discoloration, Neuro: Negative for headache, weakness, numbness, tingling, and seizure. 19:28 MS/extremity: Positive for decreased range of motion, pain, tenderness. Exam: 19:28 Eyes: Pupils equal round and reactive to light, extra-ocular motions intact. Lids and jr8 lashes normal. Conjunctiva and sclera are non-icteric and not injected. Cornea within normal limits. Periorbital areas with no swelling, redness, or edema. ENT: Nares patent. No nasal discharge, no septal abnormalities noted. Tympanic membranes are normal and external auditory canals are clear. Oropharynx with no redness, swelling, or masses, exudates, or evidence of obstruction, uvula midline. Mucous membranes moist. Neck: Trachea midline, no thyromegaly or masses palpated, and no cervical lymphadenopathy. Supple, full range of motion without nuchal rigidity, or vertebral point tenderness. No Meningismus. Cardiovascular: Regular rate and rhythm with a normal S1 and S2. No gallops, murmurs, or rubs. Normal PMI, no JVD. No pulse deficits. Respiratory: Lungs have equal breath sounds bilaterally, clear to auscultation and percussion. No rales, rhonchi or wheezes noted. No increased work of breathing, no retractions or nasal flaring. Abdomen/GI: Soft, non-tender, with normal bowel sounds. No distension or tympany. No guarding or rebound. No evidence of tenderness throughout. Back: No spinal tenderness. No costovertebral tenderness. Full range of motion. Skin: Warm, dry with normal turgor. Normal color with no rashes, no lesions, and no evidence of cellulitis. Neuro: Awake and alert, GCS 15, oriented to person, place, time, and situation. Cranial nerves II-XII grossly intact. Motor strength 5/5 in all extremities. Sensory grossly intact. Cerebellar exam normal. Normal gait. 19:28 Musculoskeletal/extremity: Extremities: grossly normal except: noted in the left shoulder: Tenderness to anterior shoulder with decreased ROM secondary to pain. No external trauma noted. No deformity noted. No step offs seen. Sensation and pulses normal 2+. Rest of extremities unremarkable . Vital Signs: 18:18 BP 144 / 92; Pulse 97; Resp 18 S; Temp 97.9(TE); Pulse Ox 97% on R/A; Weight 127.01 kg aa5 (R); Height 6 ft. 3 in. (190.50 cm) (R); Pain 10/10; 19:59 BP 137 / 89; Pulse 89; Resp 18; Temp 98.0; Pulse Ox 98% on R/A; Pain 7/10; aa1 18:18 Body Mass Index 35.00 (127.01 kg, 190.50 cm) aa5 Procedures: 19:52 Splinting: Splint applied to left shoulder using sling, applied by nurse. Examined by jr8 me, post splint application: neurovascular intact, 2+ distal pulses palpable, brisk capillary refill noted. MDM: 19:12 Patient medically screened. [place] 19:49 Data reviewed: vital signs, nurses notes, radiologic studies, plain films. Data jr8 interpreted: Pulse oximetry: on room air is 97 %. Interpretation: normal. Counseling: I had a detailed discussion with the patient and/or guardian regarding: the historical points, exam findings, and any diagnostic results supporting the discharge/admit diagnosis, radiology results, the need for outpatient follow up, a orthopedic surgeon, to return to the emergency department if symptoms worsen or persist or if there are any questions or concerns that arise at home. 09/21 18:18 Order name: Shoulder Left (2 View) XRAY; Complete Time: 19:49 aa5 09/21 19:52 Order name: Sling; Complete Time: 19:58 jr8 Administered Medications: 19:26 Drug: Ibuprofen 600 mg Route: PO; aa1 19:59 Follow up: Response: No adverse reaction; Medication administered at discharge. aa1 19:26 Drug: [place] (7.5 mg-325 mg) 1 tabs Route: PO; aa1 19:58 Follow up: Response: No adverse reaction; Medication administered at discharge. aa1 Disposition: 09/21/19 19:50 Discharged to Home. Impression: Contusion of left shoulder. - Condition is Stable. - Discharge Instructions: Shoulder Pain. - Prescriptions for meloxicam 15 mg Oral tablet - take 1 tablet by ORAL route once daily As needed; 20 tablet. - Medication Reconciliation Form, Thank You Letter, Antibiotic Education, Prescription Opioid Use form. - Follow up: Jeffery Pennington MD; When: 5 - 6 days; Reason: Recheck today's complaints, Continuance of care, Re-evaluation by your physician. - Problem is new. - Symptoms have improved. Addendum: 09/24/2019 08:20 Co-signature as Attending Physician, Silvestre Castañeda MD I agree with the assessment and c sweet plan of care. Signatures: Dispatcher [employer] Shantel Pugh RN RN aa1 Silvestre Castañeda MD MD cha Calderon, Audri RN RN aa5 Gt Zamora PA PA jr8 Corrections: (The following items were deleted from the chart) 09/21 20:01 19:50 09/21/2019 19:50 Discharged to Home. Impression: Contusion of left shoulder. aa1 Condition is Stable. Forms are Medication Reconciliation Form, Thank You Letter, Antibiotic Education, Prescription Opioid Use. Follow up: Jeffery Pennington; When: 5 - 6 days; Reason: Recheck today's complaints, Continuance of care, Re-evaluation by your physician. Problem is new. Symptoms have improved. jr8
[2019-09-21 20:09] VITALS: BP 137/89; TEMP 98; O2SAT 98
== END 2019-09-21 20:01 | disposition home or self-care (01) ==
LOC: ER 17:51
DX: S40.012A Contusion of left shoulder, initial encounter (principal); X50.9XXA Other and unspecified overexertion or strenuous movements or postures, initial encounter; Y93.9 Activity, unspecified; Y92.9 Unspecified place or not applicable; F17.210 Nicotine dependence, cigarettes, uncomplicated
CPT/HCPCS: 99284

== ENCOUNTER 2019-12-05 17:04 | Emergency (ER) | payer SELFPAY ==
--- NOTE | 2019-12-05 18:10 | ER ---
Nurse's Notes [facility] Name: Jae Heredia Age: 39 yrs Sex: Male : 1980 Arrival Date: 12/05/2019 Time: 17:06 Bed 17 Private MD: Diagnosis: Acute pharyngitis Presentation: 12/04 17:08 Chief complaint: Patient states: Sore throat since this morning, reports difficulty ca1 swallowing, cough and body aches. Coronavirus screen: reports "a little cough", denies fever. Coronavirus screen:. Ebola Screen: Patient negative for fever greater than or equal to 101.5 degrees Fahrenheit, and additional compatible Ebola Virus Disease symptoms Patient denies exposure to infectious person. Patient denies travel to an Ebola-affected area in the 21 days before illness onset. No symptoms or risks identified at this time. Initial Sepsis Screen: Does the patient meet any 2 criteria? No. Patient's initial sepsis screen is negative. Does the patient have a suspected source of infection? No. Patient's initial sepsis screen is negative. Risk Assessment: Do you want to hurt yourself or someone else? Patient reports no desire to harm self or others. Onset of symptoms was December 05, 2019. 17:08 Method Of Arrival: Ambulatory ca1 17:08 Acuity: KELLIE 4 ca1 Historical: - Allergies: 17:11 steroids; "my whole face turns red"; ca1 - Home Meds: 17:11 None [Active]; ca1 - PMHx: 17:11 None; ca1 - Immunization history:: Adult Immunizations up to date, Flu vaccine is not up to date. - Social history:: Smoking status: Patient reports the use of cigarette tobacco products, smokes one-half pack cigarettes per day. Screenin:21 Abuse screen: Denies threats or abuse. Nutritional screening: No deficits noted. em Tuberculosis screening: No symptoms or risk factors identified. Fall Risk None identified. Assessment: 17:25 General: Appears in no apparent distress. comfortable, Behavior is calm, cooperative, em appropriate for age, Denies fever. Pain: Complains of pain in throat. Neuro: Level of Consciousness is awake, alert, obeys commands, Oriented to person, place, time, situation, Appropriate for age. Cardiovascular: Capillary refill < 3 seconds Patient's skin is warm and dry. Respiratory: Reports cough that is Airway is patent Respiratory effort is even, unlabored, Respiratory pattern is regular, symmetrical, Breath sounds are clear bilaterally. Denies shortness of breath. GI: Patient currently denies nausea, vomiting. EENT: Oral mucosa is moist. Throat is reddened has enlarged tonsils bilaterally Denies nasal discharge. Derm: Skin is intact, is healthy with good turgor, Skin is pink, warm \\T\\ dry. Musculoskeletal: Capillary refill < 3 seconds, Range of motion: intact in all extremities. Vital Signs: 17:08 BP 141 / 96; Pulse 96; Resp 17 S; Temp 97.3(O); Pulse Ox 96% on R/A; Weight 127.01 kg ca1 (R); Height 6 ft. 3 in. (190.50 cm) (R); 17:08 Body Mass Index 35.00 (127.01 kg, 190.50 cm) ca1 ED Course: 17:06 Patient arrived in ED. ag5 17:11 Triage completed. ca1 17:11 Arm band placed on right wrist. ca1 17:15 [facility]C [facility] kb 17:15 Austyn Angeles MD is Attending Physician. kb 17:20 Gerry Crawford, RN is Primary Nurse. em 17:21 Patient has correct armband on for positive identification. Bed in low position. Call em light in reach. 18:23 No provider procedures requiring assistance completed. Patient did not have IV access em during this emergency room visit. Administered Medications: No medications were administered Outcome: 18:09 Discharge ordered by MD. kb 18:23 Discharged to home ambulatory. em 18:23 Condition: good 18:23 Discharge instructions given to patient, Instructed on discharge instructions, follow up and referral plans. Demonstrated understanding of instructions, follow-up care. 18:24 Patient left the ED. em Signatures: Indira Mora FNP-C FNP-Gerry Forrest, RN TANISHA em Jihan Simmons RN RN ca1 Dandy Doan ag5
--- NOTE | 2019-12-05 18:10 | EDPHYS ---
Physician Documentation [facility] Name: Jae Heredia Age: 39 yrs Sex: Male : 1980 Arrival Date: 12/05/2019 Time: 17:06 Bed 17 Private MD: ED Physician Austyn Angeles HPI: 12/04 17:22 This 39 yrs old Male presents to ER via Ambulatory with complaints of Sore kb Throat. 17:22 The patient presents with sore throat. The patient describes throat pain as constant. kb Onset: The symptoms/episode began/occurred this morning. Severity of symptoms: At their worst the symptoms were moderate, in the emergency department the symptoms are unchanged. Modifying factors: The symptoms are alleviated by nothing, the symptoms are aggravated by swallowing, Patient's oral intake status: limited fluid intake, limited food intake, Denies contact with similarly ill indivduals. Associated signs and symptoms: Pertinent positives: cough, Sore throat Pertinent negatives fever, flu-like symptoms. The patient has not experienced similar symptoms in the past. The patient has not recently seen a physician. woke up with sore throat that is getting worse. . Historical: - Allergies: 17:11 steroids; "my whole face turns red"; ca1 - Home Meds: 17:11 None [Active]; ca1 - PMHx: 17:11 None; ca1 - Immunization history:: Adult Immunizations up to date, Flu vaccine is not up to date. - Social history:: Smoking status: Patient reports the use of cigarette tobacco products, smokes one-half pack cigarettes per day. ROS: 17:22 Constitutional: Negative for fever, chills, and weight loss, Neck: Negative for injury, kb pain, and swelling, Cardiovascular: Negative for chest pain, palpitations, and edema, Abdomen/GI: Negative for abdominal pain, nausea, vomiting, diarrhea, and constipation, Back: Negative for injury and pain, MS/Extremity: Negative for injury and deformity, Skin: Negative for injury, rash, and discoloration, Neuro: Negative for headache, weakness, numbness, tingling, and seizure. 17:22 ENT: Positive for sore throat. 17:22 Respiratory: Positive for cough, with no reported sputum, Negative for dyspnea on exertion, hemoptysis, orthopnea, pleurisy, shortness of breath, sputum production, wheezing. Exam: 17:22 Constitutional: This is a well developed, well nourished patient who is awake, alert, kb and in no acute distress. Head/Face: Normocephalic, atraumatic. Neck: Trachea midline, no thyromegaly or masses palpated, and no cervical lymphadenopathy. Supple, full range of motion without nuchal rigidity, or vertebral point tenderness. No Meningismus. Chest/axilla: Normal chest wall appearance and motion. Nontender with no deformity. No lesions are appreciated. Cardiovascular: Regular rate and rhythm with a normal S1 and S2. No gallops, murmurs, or rubs. Normal PMI, no JVD. No pulse deficits. Respiratory: Lungs have equal breath sounds bilaterally, clear to auscultation and percussion. No rales, rhonchi or wheezes noted. No increased work of breathing, no retractions or nasal flaring. Abdomen/GI: Soft, non-tender, with normal bowel sounds. No distension or tympany. No guarding or rebound. No evidence of tenderness throughout. Skin: Warm, dry with normal turgor. Normal color with no rashes, no lesions, and no evidence of cellulitis. MS/ Extremity: Pulses equal, no cyanosis. Neurovascular intact. Full, normal range of motion. Neuro: Awake and alert, GCS 15, oriented to person, place, time, and situation. Cranial nerves II-XII grossly intact. Motor strength 5/5 in all extremities. Sensory grossly intact. Cerebellar exam normal. Normal gait. 17:22 ENT: Mouth: is normal, Posterior pharynx: Airway: normal, no evidence of obstruction, Tonsils: are normal in appearance, Uvula: normal, midline, swelling, is not appreciated, erythema, that is mild, exudate, is not appreciated. Vital Signs: 17:08 BP 141 / 96; Pulse 96; Resp 17 S; Temp 97.3(O); Pulse Ox 96% on R/A; Weight 127.01 kg ca1 (R); Height 6 ft. 3 in. (190.50 cm) (R); 17:08 Body Mass Index 35.00 (127.01 kg, 190.50 cm) ca1 MDM: 17:15 Patient medically screened. kb 17:24 Data reviewed: vital signs, nurses notes. Data interpreted: Pulse oximetry: on room air kb is 96 %. Interpretation: normal. 18:08 Counseling: I had a detailed discussion with the patient and/or guardian regarding: the kb historical points, exam findings, and any diagnostic results supporting the discharge/admit diagnosis, lab results, the need for outpatient follow up, a family practitioner, to return to the emergency department if symptoms worsen or persist or if there are any questions or concerns that arise at home. 12/04 17:40 Order name: Influenza Screen (A ; Complete Time: 18:08 EDMS 12/04 17:40 Order name: Group A Streptococcus Rapid Sc; Complete Time: 17:51 EDMS 12/04 17:57 Order name: Throat Culture EDMS Administered Medications: No medications were administered Disposition: 18: Co-signature as Attending Physician, Austyn Angeles MD. rn Disposition: 12/05/19 18:09 Discharged to Home. Impression: Acute pharyngitis. - Condition is Stable. - Discharge Instructions: Pharyngitis, [id number], Sore Throat, [id number]. - Medication Reconciliation Form, Thank You Letter, Antibiotic Education, Prescription Opioid Use form. - Follow up: Emergency Department; When: As needed; Reason: Worsening of condition. Follow up: Private Physician; When: 2 - 3 days; Reason: Recheck today's complaints, Continuance of care, Re-evaluation by your physician. Signatures: Dispatcher [employer] EDIndira Ibrahim, PRESERVATIONIST-C PRESERVATIONIST-Gerry Forrest, RN RN Austyn Brandon MD MD rn Acob, TANISHA Bobo RN ca1 Corrections: (The following items were deleted from the chart) 18:24 18:09 12/05/2019 18:09 Discharged to Home. Impression: Acute pharyngitis. Condition is em Stable. Forms are Medication Reconciliation Form, Thank You Letter, Antibiotic Education, Prescription Opioid Use. Follow up: Emergency Department; When: As needed; Reason: Worsening of condition. Follow up: Private Physician; When: 2 - 3 days; Reason: Recheck today's complaints, Continuance of care, Re-evaluation by your physician. kb
--- OUTSIDE RECORDS SUMMARY | 2019-12-05 18:13 | XMS REPORT ---
:1980 [facility] Address [address] [address] Dr. Long [address] [place] [address] Care Team Providers Name Role Phone Unavailable Unavailable Unavailable Problems This patient has no known problems. Allergies, Adverse Reactions, Alerts This patient has no known allergies or adverse reactions. Medications This patient has no known medications.
--- OUTSIDE RECORDS SUMMARY | 2019-12-05 18:13 | XMS REPORT | Summary of Care ---
:1980 Author Organization [facility] Address [address] [place] [address] Care Team Providers Name Role Phone Pcp, Patient Does Not Have A Primary Care Provider Reason for Referral Radiology Services (STAT) Status Reason Specialty Diagnoses / Referred By Referred To Procedures Contact Contact New Request Diagnostic Diagnoses Chest pain, unspecified type Chiqui Mirza Radiology Procedures Chest 1 View J, DO [address] [place] [address] Reason for Visit Reason Comments Chest Pain Auth/Cert Status Reason Specialty Diagnoses / Referred By Referred To Procedures Contact Contact [facility] [address] [place] [address] [place] [address] Encounter Details Date Type Department Care Team Description 09/25/2019 Emergency [facility]-Emergency Chiqui Mirza, Chest pain, Department DO unspecified type [address] (Primary Dx) [place] [id number] [place] [phone] Allergies Active Allergy Reactions Severity Noted Date Comments Prednisone Rash 09/25/2019 documented as of this encounter (statuses as of 09/25/2019) Medications No known medicationsdocumented as of this encounter (statuses as of 09/25/2019) Active Problems No known active problemsdocumented as of this encounter (statuses as of 2019) Social History Tobacco Use Types Packs/Day Years Used Date Current Every Day Smoker Cigarettes 1 8 Smokeless Tobacco: Never Used Alcohol Use Drinks/Week oz/Week Comments Yes occasionally Sex Assigned at Date Recorded Not on file Job Start Date Occupation Industry Not on file Not on file Not on file Travel History Travel Start Travel End No recent travel history available. documented as of this encounter Last Filed Vital Signs Vital Sign Reading Time Taken Comments Blood Pressure 153/99 09/25/2019 11:00 AM [facility] Pulse 86 09/25/2019 11:00 AM [facility] Temperature 36.7 C (98 F) 09/25/2019 9:24 AM CR[facility]ING [facility]ARD Respiratory Rate 16 09/25/2019 11:00 AM CR[facility]ING GUARD Oxygen Saturation 97% 09/25/2019 11:00 AM [facility]ING GUARD Inhaled Oxygen Concentration - - Weight 124.7 kg (275 lb) 09/25/2019 9:24 AM [facility]ING [facility]ARD Height 190.5 cm (6' 3") 09/25/2019 9:24 AM [facility]ARD Body Mass Index 34.37 09/25/2019 9:24 AM [facility] documented in this encounter Discharge Instructions Chiqui Earl, - 09/25/2019DIAGNOSIS 1. Chest Wall Pain NO LIFE-THREATENING FINDINGS ON TODAY'S EXAM. PROCEDURES IN THE ER TODAY: Chest Xray EKG Blood work MEDICATIONS ADMINISTERED IN THE ER TODAY: Toradol YOUR PRESCRIPTIONS AND [id number] MEDICATION RECOMMENDATIONS: You may use over the counter anti-inflammatories such as Advil or Motrin three times a day with foodas needed for pain. You may also use warm compresses and icy hot/miranda arnold. SPECIAL CARE INSTRUCTIONS: none FOLLOW-UP RECOMMENDATIONS: RECOMMEND FOLLOW-UP WITH A PRIMARY CARE PROVIDER OR SPECIALIST IN 2-5 DAYS, ESPECIALLY IF NO IMPROVEMENT IN SYMPTOMS. TO FOLLOW-UP WITHIN THE [facility], TRY THESE OPTIONS (CLINIC APPOINTMENTS AVAILABLE ON JAIS-GO-XOFZ BASIS): 1. SCHEDULE AN APPOINTMENT ONLINE AT [facility] 2. OR CALL THE [facility] AT OR 3. OR CALL YOUR [facility] PHYSICIAN'S OFFICE DIRECTLY IF YOU ARE ALREADY AN ESTABLISHED [facility] PATIENT. OR, YOU MAY FOLLOW-UP WITH A PROVIDER OF YOUR CHOICE, SUCH : 1. A PHYSICIAN OF YOUR CHOICE 2. [facility] AND [facility], . LOCATIONS IN [facility] 3. [facility], [address], [place]; RETURN TO ER FOR WORSENING OF SYMPTOMS. AttachmentsThe following attachments cannot be sent through Care Everywhere.Costochondritis, Chest Wall Pain (Turkish)documented in this encounter Plan of Treatment Health Maintenance Due Date Last Done Comments PNEUMOCOCCAL 0-64 YEARS COMBINED SERIES (1 of 1 - 1985 PPSV23) DTaP,Tdap,and Td Vaccines (1 - Tdap) 1990 INFLUENZA VACCINE (#1) 2019 documented as of this encounter Procedures Procedure Name Priority Date/Time Associated Diagnosis Comments XR CHEST 1 VW STAT 09/25/2019 9:57 Chest pain, Results for this AM [facility]ING GUARD unspecified type procedure are in the results section. CBC WITH DIFFERENTIAL STAT 09/25/2019 9:52 Chest pain, Results for this AM [facility] unspecified type procedure are in the results section. CBC WITH DIFFERENTIAL Routine 09/25/2019 9:52 Chest pain, Results for this AM [facility]ARD unspecified type procedure are in the results section. BASIC METABOLIC PANEL STAT 09/25/2019 9:52 Chest pain, Results for this (NA, K, CL, CO2, AM [facility]ING [facility]ARD unspecified type procedure are in GLUCOSE, BUN, the results CREATININE, CA) section. HEPATIC FUNCTION STAT 09/25/2019 9:52 Chest pain, Results for this PANEL (38516) AM [facility]ING GUARD unspecified type procedure are in (ALB,T.PRO,BILI the results T,BU/BC,ALT,AST,ALK section. PHOS) TROPONIN I STAT 09/25/2019 9:52 Chest pain, Results for this AM [facility]ARD unspecified type procedure are in the results section. EKG-12 LEAD STAT 09/25/2019 9:46 AM CROSSING GUARD NOTICE OF PRIVACY Routine 09/25/2019 9:21 PRACTICES AM CROSSING GUARD CONSENT/REFUSAL FOR Routine 09/25/2019 9:21 DIAGNOSIS AND AM [facility]ING [facility]ARD TREATMENT documented in this encounter Results Chest 1 View (09/25/2019 9:57 AM CROSSING GUARD) Specimen Narrative Performed At HISTORY: Chest pain. PACS/VR/DOSE TECHNIQUE: Portable AP erect view of the chest is obtained. No prior chest study available for comparison. FINDINGS: No acute pneumonia. No pneumothorax or pleural effusion or pulmonary congestion detected. Cardiac size is within normal limits. CONCLUSIONS: No signs of acute cardiopulmonary disease. Procedure Note [facility], Radiant Results Inft User - 09/25/2019 10:01 AM CROSSING GUARD HISTORY: Chest pain. TECHNIQUE: Portable AP erect view of the chest is obtained. No prior chest study available for comparison. FINDINGS: No acute pneumonia. No pneumothorax or pleural effusion or pulmonary congestion detected. Cardiac size is within normal limits. CONCLUSIONS: No signs of acute cardiopulmonary disease. Performing Organization Address City/State/Zipcode Phone Number PACS/VR/DOSE CBC WITH DIFFERENTIAL (09/25/2019 9:52 AM CROSSING GUARD) WBC 7.41 4.20 - 10.70 [facility] 10*3/L [facility] RBC 5.24 4.26 - 5.52 [facility] 10*6/L [facility] HGB 16.4 12.2 - 16.4 [facility] g/dL [facility] HCT 48.8 38.4 - 49.3 % [facility] MCV 93.1 81.7 - 95.6 fL [facility] MCH 31.3 26.1 - 32.7 pg [facility] MCHC 33.6 31.2 - 35.0 [facility] g/dL [facility] RDW-SD 43.7 38.5 - 51.6 fL [facility] RDW-CV 12.6 12.1 - 15.4 % [facility] PLT 181 150 - 328 [facility] 10*3/L [facility] MPV 10.6 9.8 - 13.0 fL [facility] NRBC/100 WBC 0.0 0.0 - 10.0 /100 [facility] WBCs [facility] NRBC x10^3 <0.01 10*3/L [facility] GRAN MAT (NEUT) % 64.2 % [facility] IMM GRAN % 0.30 % [facility] LYMPH % 28.1 % [facility] MONO % 3.9 % [facility] EOS % 3.0 % [facility] BASO % 0.5 % [facility] GRAN MAT x10^3(ANC) 4.76 1.99 - 6.95 [facility] 10*3/uL [facility]ITAL [facility] IMM GRAN x10^3 <0.03 0.00 - 0.06 [facility] 10*3/uL [facility] LYMPH x10^3 2.08 1.09 - 3.23 [facility] 10*3/uL [facility] MONO x10^3 0.29 (L) 0.36 - 1.02 [facility] 10*3/uL [facility] EOS x10^3 0.22 0.06 - 0.53 [facility] 10*3/uL [facility] BASO x10^3 0.04 0.01 - 0.09 [facility] 10*3/uL [facility] Specimen Blood - ARM, RIGHT Performing Organization Address [facility] [place] Phone Number [facility] CLIA: [id number], [address] [place] [address] Troponin I (09/25/2019 9:52 AM CROSSING GUARD) TROPONIN I 0.003 <=0.034 ng/mL [facility] Specimen Blood - ARM, RIGHT Narrative Performed At Equal or Less than 0.034 ng/ml---Normal [facility] Note: Cardiac troponin begins to rise 3-4 hours after the onset of ischemia. Repeat in 4-6 hours if the sample was drawn within 3-4 hours of the onset of the symptom and found normal. Between 0.035 and 0.120 ng/mL--- Borderline. Questionable myocardial injury or necrosis Note: Serial measurement may be necessary to confirm or exclude the diagnosis of myocardial injury or necrosis; Clinical correlation (symptoms, EKGs, imaging studies, and others) required; Repeat in 4-6 hours if clinically indicated. Equal or Higher than 0.121 ng/mL---Abnormal. Myocardial Injury or Necrosis Likely Biotin has been reported to cause a negative bias, interpret results relative to patient's use of biotin. Performing Organization Address [facility] [place] Phone Number [facility] CLIA: [id number], [address] [place] [address] Hepatic Function Panel (ALB, T.PRO, BILI T, BU/BC, ALT, AST, ALK PHOS) (2019 9:52 AM CROSSING GUARD) TOTAL BILI 0.7 0.1 - 1.1 mg/dL [facility] BILI UNCON 0.6 0.1 - 1.1 mg/dL [facility] BILI CONJ 0.0 0.0 - 0.3 mg/dL [facility] T PROTEIN 7.6 6.3 - 8.2 g/dL [facility] ALBUMIN 4.4 3.5 - 5.0 g/dL [facility] ALK PHOS 58 34 - 122 U/L [facility] ALTv 25 5 - 50 U/L [facility] AST(SGOT) 25 13 - 40 U/L [facility] Specimen Blood - ARM, RIGHT Performing Organization Address City/State/Zipcode Phone Number [facility] CLIA: [id number], [address] [place] [address] Basic Metabolic Panel (NA, K, CL, CO2, GLUCOSE, BUN, CREATININE, CA) (2019 9:52 AM CROSSING GUARD) NA 136 135 - 145 [facility] mmol/L [facility] K 4.2 3.5 - 5.0 [facility] mmol/L [facility] CL 99 98 - 108 mmol/L [facility] CO2 TOTAL 30 23 - 31 mmol/L [facility] AGAP 7 2 - 16 [facility] BUN 17 7 - 23 mg/dL [facility] GLUCOSE 197 (H) 70 - 110 mg/dL [facility] CREATININE 1.10 0.60 - 1.25 [facility] mg/dL [facility] CALCIUM 9.6 8.6 - 10.6 [facility] mg/dL [facility] eGFR Calculation 74.1 mL/min/1.73m2 [facility] (Non-[facility] LABORATORY Cambodian) eGFR Calculation 89.9 mL/min/1.73m2 [facility] () [facility] Specimen Blood - ARM, RIGHT Narrative Performed At Association of Glomerular Filtration Rate (GFR) [facility] and Staging of Kidney Disease* + + +- + | GFR (mL/min/1.73 m2) | With Kidney Damage | Without Kidney Damage + + +- + | >90 | Stage one | Normal + + +- + | 60-89 | Stage two | Decreased GFR + + +- + | 30-59 | Stage three | Stage three + + +- + | 15-29 | Stage four | Stage four + + +- + | <15 (or dialysis) | Stage five | Stage five + + +- + *Each stage assumes the associated GFR level has been in effect for at least three months. Stages 1 to 5, with or without kidney disease, indicate chronic kidney disease. Notes: Determination of stages one and two (with eGFR >59mL/min/1.73 m2) requires estimation of kidney damage for at least three months as defined by structural or functional abnormalities of the kidney, manifested by either: Pathological abnormalities or Markers of kidney damage (including abnormalities in the composition of the blood or urine or abnormalities in imaging tests). Performing Organization Address City/State/Zipcode Phone Number [facility] CLIA: [id number], [address] [place] [address] documented in this encounter Visit Diagnoses Diagnosis Chest pain, unspecified type - Primary documented in this encounter Administered Medications Medication Order MAR Action Action Date Dose Rate Site aspirin chewable tablet 324 mg Given 09/25/2019 10:02 AM CROSSING GUARD 324 mg 324 mg, Oral, ONCE, 1 dose, 09/25/19 at 1100, Routine ketorolac (TORADOL) injection 30 mg Given 09/25/2019 10:02 AM CROSSING GUARD 30 mg 30 mg, Slow IV Push, ONCE, 1 dose, Tue09/25/19 at 1000, NELLA, delivery crew member approving Restricted medication: CHIQUI MIRZA documented in this encounter
[2019-12-05 18:29] VITALS: BP 141/96; TEMP 97.3; O2SAT 96
== END 2019-12-05 18:24 | disposition home or self-care (01) ==
LOC: ER 17:04
DX: J02.9 Acute pharyngitis, unspecified (principal); F17.210 Nicotine dependence, cigarettes, uncomplicated; Z88.8 Allergy status to other drugs, medicaments and biological substances
CPT/HCPCS: 87070; 87081; 87804; 99281

== ENCOUNTER 2020-01-26 13:35 | Emergency (ER) | payer SELFPAY ==
--- OUTSIDE RECORDS SUMMARY | 2020-01-26 13:37 | XMS REPORT | Summary of Care ---
:1980 Author Organization [facility] Address [address] [place] [address] Care Team Providers Name Role Phone Pcp, Patient Does Not Have A Primary Care Provider +[id number] 0-0000 Reason for Referral Radiology Services (STAT) Status Reason Specialty Diagnoses / Referred By Referred To Procedures Contact Contact New Request Diagnostic Diagnoses Chest pain, unspecified type Chiqui Mirza Radiology Procedures Chest 1 View J, DO [address] [place] [address] Reason for Visit Reason Comments Chest Pain Auth/Cert Status Reason Specialty Diagnoses / Referred By Referred To Procedures Contact Contact Emergency Medicine [facility] Em ergency Dept [address] [facility] [place] [address] Fax: Encounter Details Date Type Department Care Team Description 09/25/2019 Emergency ADC-Emergency Chiqui Mirza, Chest p ain, Department DO unspecified type [address] (Primary Dx) [place] [id number] Allergies Active Allergy Reactions Severity Noted Date Comments Prednisone Rash 09/25/2019 documented as of this encounter (statuses as of 09/25/2019) Medications No known medicationsdocumented as of this encounter (statuses as of 09/25/2019) Active Problems No known active problemsdocumented as of this encounter (statuses as of 09/25/2019) Social History Tobacco Use Types Packs/Day Years [...] Comments Blood Pressure 153/99 09/25/2019 11:00 AM [employer] HELPER Pulse 86 09/25/2019 11:00 AM [employer] HELPER Temperature 36.7 C (98 F) 09/25/2019 9:24 AM [employer] HELPER Respiratory Rate 16 09/25/2019 11:00 AM [employer] HELPER Oxygen Saturation 97% 09/25/2019 11:00 AM [employer]AR [employer] HELPER Inhaled Oxygen Concentration - - Weight 124.7 kg (275 lb) 09/25/2019 9:24 AM H[employer] HELPER Height 190.5 cm (6' 3") 09/25/2019 9:24 AM [employer] HELPER Body Mass Index 34.37 09/25/2019 9:24 AM [employer] HELPER documented in this encounter Discharge Instructions Chiqui Earl, - 09/25/2019DIAGNOSIS 1. Chest Wall Pain NO LIFE-THREATENING FINDINGS ON TODAY'S EXAM. PROCEDURES IN THE ER TODAY: Chest Xray EKG Blood work MEDICATIONS ADMINISTERED IN THE ER TODAY: Toradol YOUR PRESCRIPTIONS AND [id number]-AVNXLQA MEDICATION RECOMMENDATIONS: You may use over the counter anti-inflammatories such as Advil or Motrin three times a day with foodas needed for pain. You may also use warm compresses and icy hot/miranda arnold. SPECIAL CARE INSTRUCTIONS: none FOLLOW-UP RECOMMENDATIONS: RECOMMEND FOLLOW-UP WITH A PRIMARY CARE PROVIDER OR SPECIALIST IN 2-5 DAYS, ESPECIALLY IF NO IMPROVEMENT IN SYMPTOMS. TO FOLLOW-UP WITHIN THE [facility], TRY THESE OPTIONS (CLINIC APPOINTMENTS AVAILABLE ON NDOM-GL-SGCL BASIS): 1. SCHEDULE AN APPOINTMENT ONLINE AT WWW[facility] 2. OR CALL THE [facility] AT OR 3. OR CALL YOUR [facility] PHYSICIAN'S OFFICE DIRECTLY IF YOU ARE ALREADY AN ESTABLISHED [facility] PATIENT. OR, YOU MAY FOLLOW-UP WITH A PROVIDER OF YOUR CHOICE, SUCH : 1. A PHYSICIAN OF YOUR CHOICE 2. [facility], . LOCATIONS IN [facility] 3. [facility], [address], [place]; [phone] RETURN TO ER FOR WORSENING OF SYMPTOMS. AttachmentsThe following attachments cannot be sent through Care Everywhere. Costochondritis, Chest Wall Pain (Hebrew)documented in this encounter Plan of Treatment Health Maintenance Due Date Last Done Comments PNEUMOCOCCAL 0-64 YEARS COMBINED SERIES (1 of 1 - 1985 PPSV23) DTaP,Tdap,and Td Vaccines (1 - Tdap) 1990 INFLUENZA VACCINE (#1) 2019 documented as of this encounter Procedures Procedure Name Priority Date/Time Associated Diagnosis Comme nts XR CHEST 1 VW STAT 09/25/2019 9:57 Chest pain, Results fo r this AM [employer] unspecified type procedure a re in the results section. CBC WITH DIFFERENTIAL STAT 09/25/2019 9:52 Chest pain, Re sults for this AM [employer] unspecified type procedure a re in the results section. CBC WITH DIFFERENTIAL Routine 09/25/2019 9:52 Chest pain, Re sults for this AM [employer] unspecified type procedure a re in the results section. BASIC METABOLIC PANEL STAT 09/25/2019 9:52 Chest pain, Re sults for this (NA, K, CL, CO2, AM [employer] HEL[employer] unspecified type procedu re are in GLUCOSE, BUN, the results CREATININE, CA) section. HEPATIC FUNCTION STAT 09/25/2019 9:52 Chest pain, Results for this PANEL ([id number]) AM [employer] HEL[employer] unspecified type procedure are in (ALB,T.PRO,BILI the results T,BU/BC,ALT,AST,ALK section. PHOS) TROPONIN I STAT 09/25/2019 9:52 Chest pain, Results for this AM [employer] HEL[employer] unspecified type procedure a re in the results section. EKG-12 LEAD STAT 09/25/2019 9:46 AM [employer] HELPER NOTICE OF PRIVACY Routine 09/25/2019 9:21 PRACTICES AM [employer] HELPER CONSENT/REFUSAL FOR Routine 09/25/2019 9:21 DIAGNOSIS AND AM [employer] TREATMENT documented in this encounter Results Chest 1 View (09/25/2019 9:57 AM H[employer] HELPER) Specimen Narrative Performed At HISTORY: Chest pain. PACS/VR/DOSE TECHNIQUE: Portable AP erect view of the chest is obta ined. No prior chest study available for comparison. FINDINGS: No acute pneumonia. No pneumot horax or pleural effusion or pulmonary congestion detected. Cardiac s ize is within normal limits. CONCLUSIONS: No signs of acute cardiopulmonary disease . Procedure Note [facility], Radiant Results Inft User - 2019 10:01 AM [employer] HELPER HISTORY: Chest pain. TECHNIQUE: Portable AP erect view of the chest is obtained. No prior chest study available for comparison. FINDINGS: No acute pneumonia. No pneumot horax or pleural effusion or pulmonary congestion detected. Cardiac s ize is within normal limits. CONCLUSIONS: No signs of acute cardiopul monary disease. Performing Organization Address City/State/Zipcode Phone Number PACS/VR/DOSE CBC WITH DIFFERENTIAL (09/25/2019 9:52 AM HOT TAR [employer]OOFER HELPER) [facility] nature WBC 7.41 4.20 - 10.70 [facility] 10*3/L [facility] RBC 5.24 4.26 - 5.52 [facility] 10*6/L HOSPITAL LABORATORY HGB 16.4 12.2 - 16.4 [facility] g/dL [facility] HCT 48.8 38.4 - 49.3 % [facility] MCV 93.1 81.7 - 95.6 fL [facility] MCH 31.3 26.1 - 32.7 pg [facility] MCHC 33.6 31.2 - 35.0 [facility] g/dL [facility] RDW-SD 43.7 38.5 - 51.6 fL [facility] RDW-CV 12.6 12.1 - 15.4 % [facility] PLT 181 150 - 328 [facility] 10*3/L [facility] MPV 10.6 9.8 - 13.0 fL [facility] NRBC/100 WBC 0.0 0.0 - 10.0 /100 [facility] WBCs [facility] NRBC x10^3 <0.01 10*3/L [facility] GRAN MAT (NEUT) % 64.2 % [facility] IMM GRAN % 0.30 % [facility] LYMPH % 28.1 % [facility] MONO % 3.9 % [facility] EOS % 3.0 % [facility] BASO % 0.5 % [facility] GRAN MAT x10^3(ANC) 4.76 1.99 - 6.95 [facility] 10*3/uL HOSPITAL LABORATORY IMM GRAN x10^3 <0.03 0.00 - 0.06 [facility] 10*3/uL [facility] LYMPH x10^3 2.08 1.09 - 3.23 [facility] 10*3/uL [facility] MONO x10^3 0.29 (L) 0.36 - 1.02 [facility] 10*3/uL [facility] EOS x10^3 0.22 0.06 - 0.[address]uL [facility] BASO x10^3 0.04 0.01 - 0.[address]uL [facility] Specimen Blood - ARM, RIGHT Performing Organization Address [facility] Cent[facility]ode Phone Number [facility] CLIA: [id number], [address] [place] [address] Troponin I (09/25/2019 9:52 AM H[employer] HELPER) Pathologist Sig nature TROPONIN I 0.003 <=0.034 ng/mL [facility] Specimen Blood - ARM, RIGHT Narrative Performed At Equal or Less than 0.034 ng/ml---Normal [facility] Note: Cardiac troponin begins to rise 3-4 hours after the onset of ischemia. Repeat in 4-6 hours if the sample was drawn within 3-4 hours of the onset of the symptom and found normal. Between 0.035 and 0.120 ng/mL--- Borderline. Questionable myocardial injury or necros is Note: Serial measurement may be necessary to [...] of biotin. Performing Organization Address [facility] Centercode Phone Number [facility] CLIA: [id number], [address] [place] [address] Hepatic Function Panel (ALB, T.PRO, BILI T, BU/BC, ALT, AST, ALK PHOS) (09/25/2019 9:52 AM H[employer] HELPER) Pathologist Sig nature TOTAL BILI 0.7 0.1 - 1.1 mg/dL [facility] BILI UNCON 0.6 0.1 - 1.1 mg/dL [facility] BILI CONJ 0.0 0.0 - 0.3 mg/dL [facility] T PROTEIN 7.6 6.3 - 8.2 g/dL [facility] ALBUMIN 4.4 3.5 - 5.0 g/dL [facility] ALK PHOS 58 34 - 122 U/L [facility] ALTv 25 5 - 50 U/L [facility] AST(SGOT) 25 13 - 40 U/L [facility] Specimen Blood - ARM, RIGHT Performing Organization Address City/State/Zipcode Phone Number [facility] CLIA: [id number], [address] [place], [place] [address] Basic Metabolic Panel (NA, K, CL, CO2, GLUCOSE, BUN, CREATININE, CA) (09/25/2019 9:52 AM H[employer]AR [employer] HELPER) Pathologist [facility] nature NA 136 135 - 145 [facility] mmol/L [facility] K 4.2 3.5 - 5.0 [facility] mmol/L [facility] CL 99 98 - 108 mmol/L [facility] CO2 TOTAL 30 23 - 31 mmol/L [facility] AGAP 7 2 - 16 [facility] BUN 17 7 - 23 mg/dL [facility] GLUCOSE 197 (H) 70 - 110 mg/dL [facility] CREATININE 1.10 0.60 - 1.25 [facility] mg/dL [facility] CALCIUM 9.6 8.6 - 10.6 [facility] mg/dL [facility] eGFR Calculation 74.1 mL/min/1.73m2 [facility] (Non-[facility] LABORATORY [place]) eGFR Calculation 89.9 mL/min/1.73m2 [facility] () [facility] Specimen Blood - ARM, RIGHT Narrative Performed At Association of Glomerular Filtration Rate (GFR) [facility] and Staging of Kidney Disease* [...] tests). Performing Organization Address City/State/Zipcode Phone Number [facility] CLIA: [id number], [address] [place], [place] [address] [facility] [address] documented in this encounter Visit Diagnoses Diagnosis Chest pain, unspecified type - Primary documented in this encounter Administered Medications Medication Order MAR Action Action Date Dose Rate Site aspirin chewable tablet 324 mg Given 09/25/2019 10:02 AM H[employer] HELPER 324 mg 324 mg, Oral, ONCE, 1 dose, Tue09/25/19 at 1100, Routine ketorolac (TORADOL) injection 30 mg Given 09/25/2019 10:02 AM [employer] HELPER 30 mg 30 mg, Slow IV Push, ONCE, 1 dose, Tue09/25/19 at 1000, NELLA, [employer] crewmember approving Restricted medication: CHIQUI MIRZA documented in this encounter
--- OUTSIDE RECORDS SUMMARY | 2020-01-26 13:37 | XMS REPORT ---
:1980 Author Organization [facility] t Address [address] [place] [address] Care Team Providers Name Role Phone Jacki Hammond DO Attending Clinician Problems This patient has no known problems. Allergies, Adverse Reactions, Alerts This patient has no known allergies or adverse reactions. Medications This patient has no known medications. Procedures This patient has no known procedures. Encounters Start End Encounter Admission Attending Care Care Encounter Source Date/Time Date/Time Type Type Clinicians Facility Department ID 2019-09-25 2019-09-25 Emergency LYNNE Hammond [id number] 09:24:59 11:13:00 Chiqui Ugarte [id number] [place] [id number] [place] [id number] Results This patient has no known results.
[2020-01-26] MEDS ORDERED: HYDROCODONE/APAP 5/325 MG TAB ONE (14:03)
--- NOTE | 2020-01-26 14:18 | EDPHYS ---
Physician Documentation [facility] Name: Jae Heredia Age: 39 yrs Sex: Male : 1980 Arrival Date: 01/26/2020 Time: 13:39 Bed 17 Private MD: ED Physician Austyn Angeles HPI: 01/25 14:00 This 39 yrs old Male presents to ER via Ambulatory with complaints of Arm snw Pain. 14:00 The patient or guardian complains of pain, that is acute, swelling. The complaints snw affect the right elbow. Context: The problem was sustained at an unknown location, resulted from lifting or pulling, a heavy object. Onset: The symptoms/episode began/occurred suddenly, yesterday. Modifying factors: The symptoms are alleviated by nothing. the symptoms are aggravated by bending arm. Severity of symptoms: At their worst the symptoms were moderate, in the emergency department the symptoms are unchanged. The patient has not experienced similar symptoms in the past. It is unknown whether or not the patient has recently seen a physician. Historical: - Allergies: 13:55 steroids; "my whole face turns red"; ca1 - Home Meds: 13:55 None [Active]; ca1 - PMHx: 13:55 None; ca1 - PSHx: 13:55 wrist surger R; ca1 - Immunization history:: Adult Immunizations up to date. - Social history:: Smoking status: Patient reports the use of cigarette tobacco products, smokes one-half pack cigarettes per day. ROS: 14:00 Constitutional: Negative for fever, chills, and weight loss, Eyes: Negative for injury, snw pain, redness, and discharge, ENT: Negative for injury, pain, and discharge, Neck: Negative for injury, pain, and swelling, Cardiovascular: Negative for chest pain, palpitations, and edema, Respiratory: Negative for shortness of breath, cough, wheezing, and pleuritic chest pain, Abdomen/GI: Negative for abdominal pain, nausea, vomiting, diarrhea, and constipation, Back: Negative for injury and pain, : Negative for injury, bleeding, discharge, and swelling, Skin: Negative for injury, rash, and discoloration, Neuro: Negative for headache, weakness, numbness, tingling, and seizure. 14:00 MS/extremity: Positive for decreased range of motion, pain, swelling, tenderness, of the right elbow. Exam: 13:59 Constitutional: This is a well developed, well nourished patient who is awake, alert, snw and in no acute distress. Head/Face: Normocephalic, atraumatic. Eyes: Pupils equal round and reactive to light, extra-ocular motions intact. Lids and lashes normal. Conjunctiva and sclera are non-icteric and not injected. Cornea within normal limits. Periorbital areas with no swelling, redness, or edema. ENT: Nares patent. No nasal discharge, no septal abnormalities noted. Tympanic membranes are normal and external auditory canals are clear. Oropharynx with no redness, swelling, or masses, exudates, or evidence of obstruction, uvula midline. Mucous membranes moist. Neck: Trachea midline, no thyromegaly or masses palpated, and no cervical lymphadenopathy. Supple, full range of motion without nuchal rigidity, or vertebral point tenderness. No Meningismus. Chest/axilla: Normal chest wall appearance and motion. Nontender with no deformity. No lesions are appreciated. Cardiovascular: Regular rate and rhythm with a normal S1 and S2. No gallops, murmurs, or rubs. Normal PMI, no JVD. No pulse deficits. Respiratory: Lungs have equal breath sounds bilaterally, clear to auscultation and percussion. No rales, rhonchi or wheezes noted. No increased work of breathing, no retractions or nasal flaring. Abdomen/GI: Soft, non-tender, with normal bowel sounds. No distension or tympany. No guarding or rebound. No evidence of tenderness throughout. Back: No spinal tenderness. No costovertebral tenderness. Full range of motion. Skin: Warm, dry with normal turgor. Normal color with no rashes, no lesions, and no evidence of cellulitis. Neuro: Awake and alert, GCS 15, oriented to person, place, time, and situation. Cranial nerves II-XII grossly intact. Motor strength 5/5 in all extremities. Sensory grossly intact. Cerebellar exam normal. Normal gait. Psych: Awake, alert, with orientation to person, place and time. Behavior, mood, and affect are within normal limits. 13:59 Musculoskeletal/extremity: Extremities: grossly normal except: noted in the right elbow: swelling, tenderness, lateral epicondyle, ROM: limited active range of motion due to pain, limited passive range of motion due to pain, in the right elbow, Circulation is intact in all extremities. Sensation intact. Vital Signs: 13:52 BP 163 / 101; Pulse 107; Resp 16 S; Temp 97.2(TE); Pulse Ox 96% on R/A; Weight 124.74 ca1 kg (R); Height 6 ft. 3 in. (190.50 cm) (R); Pain 9/10; 13:52 Body Mass Index 34.37 (124.74 kg, 190.50 cm) ca1 MDM: 13:48 Patient medically screened. snw 14:24 Data reviewed: vital signs, nurses notes. Data interpreted: Pulse oximetry: on room air snw is 96 %. Interpretation: normal. Counseling: I had a detailed discussion with the patient and/or guardian regarding: the historical points, exam findings, and any diagnostic results supporting the discharge/admit diagnosis, radiology results, the need for outpatient follow up, to return to the emergency department if symptoms worsen or persist or if there are any questions or concerns that arise at home. Response to treatment: the patient's symptoms have mildly improved after treatment. Special discussion: I have referred the patient to see his PCP for further evaluation of high blood pressure. Based on the history and exam findings, there is no indication for further emergent testing or inpatient evaluation. I discussed with the patient/guardian the need to see the primary care provider for further evaluation of the symptoms. 01/25 13:54 Order name: Elbow Right 2 View XRAY snw Administered Medications: 13:59 Drug: [place] 5 mg-325 mg 2 tabs Route: PO; iw 14:29 Follow up: Response: No adverse reaction aa5 Disposition: 14:46 Co-signature as Attending Physician, Austyn Angeles MD. rn Disposition: 01/26/20 14:17 Discharged to Home. Impression: Lateral epicondylitis, right elbow. - Condition is Stable. - Discharge Instructions: JC Johnson for Routine Care of Injuries, Heat Therapy, Form - Blood Pressure Record Sheet. - Prescriptions for Mobic 7.5 mg Oral Tablet - take 1 tablet by ORAL route once daily take with food; 20 tablet. orphenadrine citrate 100 mg Oral Tablet Sustained Release - take 1 tablet by ORAL route 2 times per day As needed; 20 tablet. - Work release form, Medication Reconciliation Form, Thank You Letter, Antibiotic Education, Prescription Opioid Use form. - Follow up: Emergency Department; When: As needed; Reason: Worsening of condition. Follow up: Private Physician; When: 2 - 3 days; Reason: Recheck today's complaints, Continuance of care, Re-evaluation by your physician. Follow up: Jus Haynes; When: 1 - 2 days; Reason: Recheck today's complaints, Continuance of care. Signatures: Dispatcher [employer] EDMS Alyssia Multani, CANDY-C HOUSE MANAGER-Csnw Radha Hammond, RN RN iw Austyn Angeles MD MD rn Calderon, Audri RN RN aa5 Acob, Jihan RN RN ca1 Corrections: (The following items were deleted from the chart) 14:30 14:17 01/26/2020 14:17 Discharged to Home. Impression: Lateral epicondylitis, right aa5 elbow. Condition is Stable. Discharge Instructions: JC Johnson for Routine Care of Injuries, Heat Therapy, Form - Blood Pressure Record Sheet. Prescriptions for Mobic 7.5 mg Oral Tablet - take 1 tablet by ORAL route once daily take with food; 20 tablet, orphenadrine citrate 100 mg Oral Tablet Sustained Release - take 1 tablet by ORAL route 2 times per day As needed; 20 tablet. and Forms are Work release form, Medication Reconciliation Form, Thank You Letter, Antibiotic Education, Prescription Opioid Use. Follow up: Emergency Department; When: As needed; Reason: Worsening of condition. Follow up: Private Physician; When: 2 - 3 days; Reason: Recheck today's complaints, Continuance of care, Re-evaluation by your physician. Follow up: Jus Haynes; When: 1 - 2 days; Reason: Recheck today's complaints, Continuance of care. snw
--- NOTE | 2020-01-26 14:18 | ER ---
Nurse's Notes [facility] Name: Jae Heredia Age: 39 yrs Sex: Male : 1980 Arrival Date: 01/26/2020 Time: 13:39 Bed 17 Private MD: Diagnosis: Lateral epicondylitis, right elbow Presentation: 01/25 13:52 Chief complaint: Patient states: R elbow pain, on and off x couple months. Worst in the ca1 last 2 days. Denies injury to the area. Reports heaving lifting and moving stuff. Coronavirus screen: Proceed with normal triage. Patient denies a cough. Patient denies shortness of breath or difficulty breathing. Patient denies measured and/or subjective temperature greater than 100.4F prior to today's visit. Patient denies travel on a cruise ship or to a country the [facility] currently lists as an affected area. Patient denies contact with known and/or suspected case of COVID-19. Ebola Screen: Patient negative for fever greater than or equal to 101.5 degrees Fahrenheit, and additional compatible Ebola Virus Disease symptoms Patient denies exposure to infectious person. Patient denies travel to an Ebola-affected area in the 21 days before illness onset. No symptoms or risks identified at this time. Initial Sepsis Screen: Does the patient meet any 2 criteria? No. Patient's initial sepsis screen is negative. Does the patient have a suspected source of infection? No. Patient's initial sepsis screen is negative. Risk Assessment: Do you want to hurt yourself or someone else? Patient reports no desire to harm self or others. Onset of symptoms was January 26, 2020. 13:52 Method Of Arrival: Ambulatory ca1 13:52 Acuity: KELLIE 4 ca1 Historical: - Allergies: 13:55 steroids; "my whole face turns red"; ca1 - Home Meds: 13:55 None [Active]; ca1 - PMHx: 13:55 None; ca1 - PSHx: 13:55 wrist surger R; ca1 - Immunization history:: Adult Immunizations up to date. - Social history:: Smoking status: Patient reports the use of cigarette tobacco products, smokes one-half pack cigarettes per day. Screenin:55 Abuse screen: Denies threats or abuse. Nutritional screening: No deficits noted. aa5 Tuberculosis screening: No symptoms or risk factors identified. Fall Risk None identified. Assessment: 13:55 General: Appears comfortable, Behavior is calm, cooperative. Pain: Complains of pain in aa5 right elbow Pain currently is 9 out of 10 on a pain scale. Neuro: Level of Consciousness is awake, alert, obeys commands, Oriented to person, place, time, situation. Cardiovascular: Patient's skin is warm and dry. Respiratory: Airway is patent Respiratory effort is even, unlabored, Respiratory pattern is regular, symmetrical. GI: No signs and/or symptoms were reported involving the gastrointestinal system. : No signs and/or symptoms were reported regarding the genitourinary system. EENT: No signs and/or symptoms were reported regarding the EENT system. Derm: Skin is pink, warm \\T\\ dry. Musculoskeletal: Range of motion: intact in all extremities, Reports pain in right elbow. 14:10 Reassessment: x-ray at bedside . aa5 14:29 Reassessment: Patient is alert, oriented x 3, equal unlabored respirations, skin aa5 warm/dry/pink. Vital Signs: 13:52 BP 163 / 101; Pulse 107; Resp 16 S; Temp 97.2(TE); Pulse Ox 96% on R/A; Weight 124.74 ca1 kg (R); Height 6 ft. 3 in. (190.50 cm) (R); Pain 9/10; 13:52 Body Mass Index 34.37 (124.74 kg, 190.50 cm) ca1 ED Course: 13:39 Patient arrived in ED. am2 13:47 Alyssia Multani FNP-C [facility]. snw 13:47 Austyn Angeles MD is Attending Physician. snw 13:54 Triage completed. ca1 13:54 Mis Brooks, TANISHA is Primary Nurse. aa5 13:55 Arm band placed on right wrist. ca1 13:55 Patient has correct armband on for positive identification. Bed in low position. Call aa5 light in reach. Side rails up X 1. Pulse ox on. NIBP on. 14:17 Jus Haynes MD is Referral Physician. snw 14:18 Elbow Right 2 View XRAY In Process Unspecified. EDMS 14:30 No provider procedures requiring assistance completed. Patient did not have IV access aa5 during this emergency room visit. Administered Medications: 13:59 Drug: Peytona 5 mg-325 mg 2 tabs Route: PO; iw 14:29 Follow up: Response: No adverse reaction aa5 Outcome: 14:17 Discharge ordered by MD. zamorano 14:29 Discharged to home ambulatory. aa5 14:29 Condition: stable 14:29 Discharge instructions given to patient, Instructed on discharge instructions, follow up and referral plans. medication usage, Demonstrated understanding of instructions, follow-up care, medications, Prescriptions given X 2. 14:30 Patient left the ED. aa5 Signatures: Dispatcher [employer] EDMS Alyssia Multani, SENIOR PRICING ANALYST-C SENIOR PRICING ANALYST-Csnw Radha Hammond RN RN iw Mis Brooks RN RN aa5 Keily England am2 Jihan Simmons RN RN ca1 Corrections: (The following items were deleted from the chart) 13:56 13:52 Acuity: KELLIE 3 ca1 ca1
--- NOTE | 2020-01-26 14:42 | RAD REPORT ---
EXAM DESCRIPTION: RAD - Elbow Right 2 View - 01/26/2020 2:18 pm CLINICAL HISTORY: Persistent nontraumatic right elbow pain COMPARISON: None. FINDINGS: No fracture is identified and no elevated posterior fat pad. There is no dislocation or periosteal reaction noted. Epiphyses and growth plates are normal in appea esteban. No foreign body or other soft tissue abnormality. IMPRESSION: Negative right elbow examination.
[2020-01-26 14:56] VITALS: BP 163/101; TEMP 97.2; O2SAT 96
== END 2020-01-26 14:30 | disposition home or self-care (01) ==
LOC: ER 13:35
DX: M77.11 Lateral epicondylitis, right elbow (principal); F17.210 Nicotine dependence, cigarettes, uncomplicated; Z88.8 Allergy status to other drugs, medicaments and biological substances
CPT/HCPCS: 99284

== ENCOUNTER 2023-02-13 20:17 | Emergency (ER) | payer SELFPAY ==
--- OUTSIDE RECORDS SUMMARY | 2023-02-13 20:19 | XMS REPORT | Continuity of Care Document ---
:1980 Author Organization [facility] t Address [address] [place] [address] [address] [place] [address] Care Team Providers Name Role Phone PCP, PATIENT DOES NOT HAVE A Primary Care Physician Unavaila ble Chiqui Mirza DO Attending Clinician CHIQUI MIRZA Attending Clinician Unavailable CHIQUI MIRZA Admitting Clinician Unavailable Problems Condition Condition Condition Status Onset Resolution Last Treating Co mments Source Name Details Category Date Date Treatment Clinician Date No known No known Disease Unive rs active active ity of problems problems [facility] Allergies, Adverse Reactions, Alerts Allergy Allergy Status Severity Reaction(s) Onset Inactive Treating Comm ents Source Name Type Date Date Clinician Predniso Propensi Active Rash 2020-0 Univer s ne ty to 1-14 ity of adverse 00:00: [place] reaction 00 [facility] PREDNISO DRUG Active Rash 2020-0 Univers NE INGREDI 1-14 ity of 00:00: [address] Social History Social Habit Start Date Stop Date Quantity Comments Source History of tobacco Cigarette Smoker University of use [facility] [place] [facility] Sex Assigned At Universit y of [facility] [place] [facility] Cigarettes smoked 2019-09-25 2019-09-25 Univers ity of current (pack per 00:00:00 00:00:00 ) - Reported Branch Cigarette 2019-09-25 2019-09-25 University of pack-years 00:00:00 00:00:00 [facility] Alcohol intake 2019-09-25 2019-09-25 University of 00:00:00 00:00:00 [facility] [place] [facility] Alcohol Comment 2015-11-27 2015-11-27 occasionally Univers ity of 00:00:00 00:00:00 [facility] Smoking Status Start Date Stop Date Source Current every day smoker 2019-09-25 00:00:[address] Medications Ordered Filled Start Stop Current Ordering Indication Dosage Frequency Signature Comments Components Source Medication Medication Date Date Medication? Clinician (SIG) Name Name aspirin 324mg 324 mg, Unive rs chewable 09-25 Oral, ity of tablet 324 17:00: 16:02 ONCE, 1 Neil as mg 00 :00 dose, [facility] 09/25/19 at Branch 1100, Routine ketorolac 30mg 30 mg, Unive rs (TORADOL) 09-25 Slow IV ity of injection 16:00: 16:02 Push, [place] 30 mg 00 :00 ONCE, 1 Medical dose, [facility] 09/25/19 at 1000, NELLA
Fa culty member approving Restricted medication : CHIQUI MIRZA No known No Univers medications [facility] Vital Signs Vital Name Observation Time Observation Value Comments Source Systolic blood 2019-09-25 17:00:00 153 mm[Hg] Univer sity of [facility] Diastolic blood 2019-09-25 17:00:00 99 mm[Hg] Unive rsity [facility] Heart rate 2019-09-25 17:00:00 86 /min [facility] Respiratory rate 2019-09-25 17:00:00 16 /min [facility] Oxygen saturation in 2019-09-25 17:00:00 97 /min [facility] Arterial blood by [facility] Pulse oximetry Branch Body temperature 2019-09-25 15:24:00 36.67 Eliane [facility] Body height 2019-09-25 15:24:00 190.5 cm [facility] Body weight 2019-09-25 15:24:00 124.739 kg [facility] BMI 2019-09-25 15:24:00 34.37 kg/m2 [facility] Systolic blood 2019-09-25 17:00:00 153 mm[Hg] Univer sity of [facility] Diastolic blood 2019-09-25 17:00:00 99 mm[Hg] Unive rsity of [facility] Heart rate 2019-09-25 17:00:00 86 /min [facility] Respiratory rate 2019-09-25 17:00:00 16 /min [facility] Oxygen saturation in 2019-09-25 17:00:00 97 /min [facility] Arterial blood by [facility] Pulse oximetry Branch Body temperature 2019-09-25 15:24:00 36.67 Elaine [facility] Body height 2019-09-25 15:24:00 190.5 cm [facility] Body weight 2019-09-25 15:24:00 124.739 kg [facility] BMI 2019-09-25 15:24:00 34.37 kg/m2 [facility] Procedures Procedure Date / Time Performing Clinician Source Performed XR CHEST 1 VW 2019-09-25 15:57:51 Chiqui Mirza [facility] TROPONIN I 2019-09-25 15:52:00 Chiqui Mirza [facility] HEPATIC FUNCTION PANEL 2019-09-25 15:52:00 [id number] ([facility]B,T.PRO,BILI [facility] Branch T,BU/BC,ALT,AST,ALK PHOS) BASIC METABOLIC PANEL 2019-09-25 15:52:00 Chiqui Mirza [facility] (NA, K, CL, CO2, Medical Branch GLUCOSE, BUN, CREATININE, CA) CBC WITH DIFFERENTIAL 2019-09-25 15:52:00 Chiqui Mirza [facility] EKG-12 LEAD 2019-09-25 15:46:52 Chiqui Mirza [facility] NOTICE OF PRIVACY 2019-09-25 15:21:38 Doctor Unassigned, No [facility] PRACTICES Name [facility] Branch CONSENT/REFUSAL FOR 2019-09-25 15:21:22 [facility], [facility] Name Medical [place] Encounters Start End Encounter Admission Attending Care Care Encounter Source Date/Time Date/Time Type Type Clinicians Facility Department ID 2019-09-25 2019-09-25 Emergency LYNNE Mirza [id number] [facility] [place] [place] 09:24:59 11:13:00 Chiqui Ugarte [id number] ity [id number] 084 Branch 2019-09-25 2019-09-25 Emergency X [facility] ERT [id number] Univers 09:24:59 11:13:00 CHIQUI bertrand [facility] 2019-09-25 2019-09-25 [facility] [id number] 09:24:59 11:13:00 Chiqui Ugarte [id number] [place] [id number] [place] [id number] Results Test Description Test Time Test Comments Results Result Comments Source Troponin I 2019-09-25 16:26:00 Test Item Value Reference Range Interpretation Comme nts TROPONIN I (test code = 0.003 ng/mL See_Comment [Au tomated message] The [id number]) system which ge nerated this result tra nsmitted reference range : <=0.034. The reference r sabine was not used to int erpret this result as normal/abnormal . NANCY (test code = NANCY) Equal or Less than 0.034 ng/ml---Normal ?Note: Cardiac troponin begins to rise 3-4 hours after the onset of ischemia. Repeat in 4-6 hours if the sample was drawn within 3-4 hours of the onset of the symptom and found normal. Between 0.035 and 0.120 ng/mL--- Borderline. Questionable myocardial injury or necrosis ? ?Note: Serial measurement may be necessary to confirm or exclude the diagnosis of myocardial injury or necrosis; Clinical correlation (symptoms, EKGs, imaging studies, and others) required; Repeat in 4-6 hours if clinically indicated. ? Equal or Higher than 0.121 ng/mL---Abnormal. Myocardial Injury or Necrosis Likely ? Biotin has been reported to cause a negative bias, interpret results relative to patient's use of biotin. ? Lab Interpretation (test Normal code = 24453-7) [facility] (NA, K, CL, CO2, GLUCOSE, BUN, CREATININE, CA)2019-09-25 16:14:00 Test Item Value Reference Range Interpretation Comments NA (test code = 136 mmol/L 135-145 9200821570) K (test code = 4.2 mmol/L 3.5-5 7782790385) CL (test code = 99 mmol/L 98-108 0230368193) CO2 TOTAL (test code = 30 mmol/L 23-31 9097111562) AGAP (test code = 2-16 0846003256) BUN (test code = 17 mg/dL 7-23 3944558033) GLUCOSE (test code = 197 mg/dL 70-110 H 6190479858) CREATININE (test code = 1.10 mg/dL 0.6-1.25 7354126545) CALCIUM (test code = 9.6 mg/dL 8.6-10.6 1392772275) eGFR Calculation mL/min/1.73m2 (Non-) (test code = 8853387477) eGFR Calculation mL/min/1.73m2 () (test code = 1808267236) NANCY (test code = NANCY) Association of Glomerular Filtration Rate (GFR) and Staging of Kidney Disease* + --+ --+ ------+| GFR (mL/min/1.73 m2) ?| With Kidney Damage ?| ?Without Kidney Damage+ --------+ --------+ +| ?>90 ?| ?Stage one ?| ? Normal ?+ ---+ ---+ -------+| ?60-89 ?| ?Stage two ?| ? Decreased GFR ? + --+ --+ ------+| ?30-59 ?| ?Stage three ?| ? Stage three ? + --+ --+ ------+| ?15-29 ?| ?Stage four ? | ? Stage four ?+ ---+ ---+ -------+| ?<15 (or dialysis) ? ?| ?Stage five ? | ? Stage five ?+ ---+ ---+ -------+ *Each stage assumes the associated GFR level has been in effect for at least three months. ?Stages 1 to 5, with or without kidney disease, indicate chronic kidney disease. Notes: Determination of stages one and two (with eGFR >59mL/min/1.73 m2) requires estimation of kidney damage for at least three months as defined by structural or functional abnormalities of the kidney, manifested by either:Pathological abnormalities or Markers of kidney damage (including abnormalities in the composition of the blood or urine or abnormalities in imaging tests). Lab Interpretation Abnormal (test code = 72622-1) [facility] (ALB, T.PRO, BILI T, BU/BC, ALT, AST, ALK PHOS)2019-09-25 16:14:00 Test Item Value Reference Range Interpretation Comments TOTAL BILI (test code = 5192615760) 0.7 mg/dL 0.1-1.1 BILI UNCON (test code = 2978478421) 0.6 mg/dL 0.1-1.1 BILI CONJ (test code = 5874498763) 0.0 mg/dL 0-0.3 T PROTEIN (test code = 1725793896) 7.6 g/dL 6.3-8.2 ALBUMIN (test code = 6167154354) 4.4 g/dL 3.5-5 ALK PHOS (test code = 0487934666) 58 U/L 34-122 ALTv (test code = 1742-6) 25 U/L 5-50 AST(SGOT) (test code = 1847820084) 25 U/L 13-40 Lab Interpretation (test code = Normal 18515-7) [facility] WITH [id number] 16:03:00 Test Item Value Reference Range Interpretation Comments WBC (test code = See_Comment [Automated 2263-2) message] The sy stem which generated this result transmitted reference range : 4.20 - 10.70 10*3/?L. The reference range was not used to interpret this result as normal/abnormal . RBC (test code = See_Comment [Automated 492-8) message] The sy stem which generated this result transmitted reference range : 4.26 - 5.52 10*6/?L. The reference range was not used to interpret this result as normal/abnormal . HGB (test code = 16.4 g/dL 12.2-16.4 718-7) HCT (test code = 48.8 % 38.4-49.3 4544-3) MCV (test code = 93.1 fL 81.7-95.6 787-2) MCH (test code = 31.3 pg 26.1-32.7 785-6) MCHC (test code = 33.6 g/dL 31.2-35 786-4) RDW-SD (test code = 43.7 fL 38.5-51.6 94500-1) RDW-CV (test code = 12.6 % 12.1-15.4 788-0) PLT (test code = See_Comment [Automated 777-3) message] The sy stem which generated this result transmitted reference range : 150 - 328 10*3/ ?L. The reference r sabine was not used to interpret this result as normal/abnormal . MPV (test code = 10.6 fL 9.8-13 86504-1) NRBC/100 WBC (test See_Comment [Automat ed code = 3794799274) message] The system which generated this result transmitted reference range : 0.0 - 10.0 /100 WBCs. The refer ence range was not u sed to interpret th is result as normal/abnormal . NRBC x10^3 (test code <0.01 See_Comment [Auto mated = 7839541413) message] The s ystem which generated this result transmitted reference range : 10*3/?L. The reference range was not used to interpret this result as normal/abnormal . GRAN MAT (NEUT) % 64.2 % (test code = 770-8) IMM GRAN % (test code 0.30 % = 1441843615) LYMPH % (test code = 28.1 % 736-9) MONO % (test code = 3.9 % 5905-5) EOS % (test code = 3.0 % 713-8) BASO % (test code = 0.5 % 706-2) GRAN MAT x10^3(ANC) 4.76 10*3/uL 1.99-6.95 (test code = 1795712250) IMM GRAN x10^3 (test <0.03 0-0.06 code = 5949508189) LYMPH x10^3 (test code 2.08 10*3/uL 1.09-3.23 = 731-0) MONO x10^3 (test code 0.29 10*3/uL 0.36-1.02 L = 742-7) EOS x10^3 (test code = 0.22 10*3/uL 0.06-0.53 711-2) BASO x10^3 (test code 0.04 10*3/uL 0.01-0.09 = 704-7) Lab Interpretation Abnormal (test code = 69227-7) [facility] hospital 1 [id number] 16:00:47HISTORY: Chest pain. TECHNIQUE: Portable AP erect view of the chest is obtained. No prior cheststudyavailable for comparison. FINDINGS: No acute pneumonia. No pneumothorax or pleural effusion orpulmonary congestion detected. Cardiac size is within normal limits. CONCLUSIONS: No signs of acute cardiopulmonary disease.Vtmb, Radiant Results Inft User - 09/25/2019 10:01 AM CSTHISTORY: Chest pain.TECHNIQUE: Portable AP erect view of the chest is obtained. No prior cheststudy available for comparison.FINDINGS: No acute pneumonia. No pneumothorax or pleural effusion orpulmonary congestion detected. Cardiac size is within normal limits. CONCLUSIONS: No signs of acute cardiopulmonary disease. [facility]"
--- NOTE | 2023-02-13 21:40 | ER ---
Nurse's Notes [facility] Name: Jae Heredia Age: 42 yrs Sex: Male : 1980 Arrival Date: 02/13/2023 Time: 20:17 Bed 11 Private MD: Diagnosis: Allergic rhinitis, unspecified Presentation: 02/13 20:24 Chief complaint: Patient states: I think I have a sinus infection again, its a lot of aa9 pressure in my nose and behind my eyes. I did a lot of lawn work today and it made it worse. Coronavirus screen: Vaccine status: Patient reports being unvaccinated. Ebola Screen: No symptoms or risks identified at this time. Initial Sepsis Screen: Does the patient meet any 2 criteria? HR > 90 bpm. Does the patient have a suspected source of infection? No. Patient's initial sepsis screen is negative. Risk Assessment: Do you want to hurt yourself or someone else? Patient reports no desire to harm self or others. Onset of symptoms was February 13, 2023. 20:24 Method Of Arrival: Ambulatory aa9 20:24 Acuity: KELLIE 4 aa9 Triage Assessment: 20:27 General: Appears uncomfortable, obese, Behavior is calm, cooperative. Pain: Complains aa9 of pain in genrealized body aches. EENT:. Neuro: Level of Consciousness is awake, alert, obeys commands, Oriented to person, place, time, situation. Cardiovascular: Patient's skin is warm and dry. Respiratory: Reports shortness of breath on exertion cough that is dry, Airway is patent Respiratory effort is even, unlabored. GI: Patient currently denies diarrhea, nausea, vomiting. : No signs and/or symptoms were reported regarding the genitourinary system. Historical: - Allergies: 20:26 prednisone; aa9 - Home Meds: 20:26 lisinopril 20 mg Oral tablet once [Active]; aa9 - PMHx: 20:26 Hypertensive disorder; aa9 - PSHx: 20:26 R wrist; aa9 - Immunization history:: Client reports having NOT received the Covid vaccine. - Social history:: Smoking status: Patient reports the use of cigarette tobacco products, smokes one-half pack cigarettes per day. Screenin:58 [facility] ED Fall Risk Assessment (Adult) History of falling in the last 3 months, kd3 including since admission No falls in past 3 months (0 pts) Confusion or Disorientation No (0 pts) Intoxicated or Sedated No (0 pts) Impaired Gait No (0 pts) Mobility Assist Device Used No (0 pt) Altered Elimination No (0 pt) Score/Fall Risk Level 0 - 2 = Low Risk Maintained a safe environment. Abuse screen: Denies threats or abuse. Denies injuries from another. Nutritional screening: No deficits noted. Tuberculosis screening: No symptoms or risk factors identified. Assessment: 20:58 General: Appears uncomfortable, Behavior is calm, cooperative. Pain: Complains of pain kd3 in sinuses. Neuro: Level of Consciousness is awake, alert, obeys commands, Oriented to person, place, time, situation. Respiratory: Airway is patent Trachea midline Respiratory effort is even, unlabored. 21:32 Reassessment: Pt was seen and assessed by this RN at 20:58. Pt had not been seen by kd3 provider at that time. This RN explained to the patient that both providers were occupied with emergency issues but that once someone was available they would be assessed. This RN offered comfort measures, including blanket and water, pt declined. Pt was given a call light and told to call if he needed anything. At 2126, pt left the room, stating that he was leaving and did not want to be seen anymore. Provider spoke with the patient in the hallway, pt still left the ED. . Vital Signs: 20:24 BP 137 / 78; Pulse 100; Resp 19; Temp 98.6; Pulse Ox 96% ; Weight 123.83 kg; Height 6 aa9 ft. 3 in. ; 20:24 Body Mass Index 34.12 (123.83 kg, 190.5 cm) aa9 ED Course: 20:21 Patient arrived in ED. ag3 20:26 Triage completed. aa9 20:28 Arm band placed on left wrist. aa9 20:58 Umu Gonzalez, RN is Primary Nurse. kd3 20:59 Patient has correct armband on for positive identification. kd3 21:14 Alyssia Berg FNP-C is PHCP. snw 21:14 Silviano Fleming MD is Attending Physician. snw 21:36 No provider procedures requiring assistance completed. Patient did not have IV access kd3 during this emergency room visit. Administered Medications: No medications were administered Medication: 20:59 VIS not applicable for this client. kd3 Outcome: 21:36 Eloped from patient exam room. kd3 21:36 Condition: stable 21:36 Discharge instructions given to 21:39 Discharge ordered by MD. zamorano 21:49 Patient left the ED. kd3 Signatures: Alyssia Berg, HIDE DYER-C HIDE DYER-Csnw Katherine Vargas 3 Umu Gonzalez RN RN kd3 Evelyne Yepez RN RN aa9 Corrections: (The following items were deleted from the chart) 20:27 20:26 Allergies: steroids; "my whole face turns red"; aa9 aa9
--- NOTE | 2023-02-13 21:40 | EDPHYS ---
Physician Documentation [facility] Name: Jae Heredia Age: 42 yrs Sex: Male : 1980 Arrival Date: 02/13/2023 Time: 20:17 Bed 11 Private MD: ED Physician Silviano Fleming HPI: 02/13 21:38 This 42 yrs old Male presents to ER via Ambulatory with complaints of Cold Symptoms. snw 21:38 The patient has experienced similar episodes in the past, multiple times. It is unknown snw whether or not the patient has recently seen a physician. Historical: - Allergies: 20:26 prednisone; aa9 - Home Meds: 20:26 lisinopril 20 mg Oral tablet once [Active]; aa9 - PMHx: 20:26 Hypertensive disorder; aa9 - PSHx: 20:26 R wrist; aa9 - Immunization history:: Client reports having NOT received the Covid vaccine. - Social history:: Smoking status: Patient reports the use of cigarette tobacco products, smokes one-half pack cigarettes per day. ROS: 21:36 Eyes: Negative for injury, pain, redness, and discharge. snw 21:36 Constitutional: Positive for body aches, malaise. 21:36 ENT: Positive for rhinorrhea, sinus congestion, sinus pain. Exam: 21:35 Skin: Mykel color with no rashes, no lesions, and no evidence of cellulitis. Neuro: snw Awake and alert, GCS 15, oriented to person, place, time, and situation. Cranial nerves II-XII grossly intact. Motor strength 5/5 in all extremities. Sensory grossly intact. Cerebellar exam normal. Normal gait. 21:35 Constitutional: The patient appears alert, awake, restless. 21:35 ENT: pt sounded congested while speaking.. 21:35 Psych: Behavior/mood is anxious, aggressive, angry, Affect is animated, Oriented to person, place, time. Vital Signs: 20:24 BP 137 / 78; Pulse 100; Resp 19; Temp 98.6; Pulse Ox 96% ; Weight 123.83 kg; Height 6 aa9 ft. 3 in. ; 20:24 Body Mass Index 34.12 (123.83 kg, 190.5 cm) aa9 MDM: 21:15 Patient medically screened. snw 21:20 ED course: I went to evaluate pt, who was angry regarding wait time. I offered to snw evaluate pt immediately and he decided to leave ED without treatment.. 21:37 Differential diagnosis: viral Infection, bacterial infection. Data reviewed: vital snw signs, nurses notes. Counseling: I had a detailed discussion with the patient and/or guardian regarding: the historical points, exam findings, and any diagnostic results supporting the discharge/admit diagnosis, the presence of at least one elevated blood pressure reading (>120/80) during this emergency department visit, the need for outpatient follow up, for definitive care, to return to the emergency department if symptoms worsen or persist or if there are any questions or concerns that arise at home. Special discussion: Based on the history and exam findings, there is no indication for further emergent testing or inpatient evaluation. I discussed with the patient/guardian the need to see the primary care provider for further evaluation of the symptoms. Administered Medications: No medications were administered Disposition Summary: 02/13/23 21:39 Discharge Ordered Location: Home snw Condition: Stable snw Diagnosis - Allergic rhinitis, unspecified snw Followup: snw - With: Emergency Department - When: As needed - Reason: Worsening of condition Followup: snw - With: Private Physician - When: 2 - 3 days - Reason: Recheck today's complaints, Continuance of care, Re-evaluation by your physician Discharge Instructions: - Discharge Summary Sheet snw - Allergies, Adult snw - Allergic Rhinitis, Adult snw - Sinusitis, Adult snw Forms: - Medication Reconciliation Form snw - Thank You Letter snw - Antibiotic Education snw - Prescription Opioid Use snw Prescriptions: - Zyrtec 10 mg Oral Tablet - take 1 tablet by ORAL route once daily As needed; 20 tablet; Refills: 0, snw Product Selection Permitted - Pepcid 20 mg Oral Tablet - take 1 tablet by ORAL route once daily; 20 tablet; Refills: 0, Product snw Selection Permitted Signatures: Alyssia Berg FNP-C FNP-Evelyne Owens RN RN aa9 Corrections: (The following items were deleted from the chart) 20:27 20:26 Allergies: steroids; "my whole face turns red"; aa9 aa9
[2023-02-13 22:25] VITALS: BP 137/78; TEMP 98.6; O2SAT 96
== END 2023-02-13 21:49 | disposition home or self-care (01) ==
LOC: ER 20:17
DX: J30.9 Allergic rhinitis, unspecified (principal)
CPT/HCPCS: 99282

== ENCOUNTER 2023-07-17 14:28 | Emergency (ER) | payer SELFPAY ==
--- OUTSIDE RECORDS SUMMARY | 2023-07-17 14:31 | XMS REPORT | Continuity of Care Document ---
:1980 Author Organization [facility] t Address [address] [place] [address] [address] [place] [address] Care Team Providers Name Role Phone PCP, [...] rs active active ity of problems problems [facility] Allergies, Adverse Reactions, Alerts Allergy Allergy Status Severity Reaction(s) Onset Inactive Treating Comm ents Source Name Type Date Date Clinician Predniso Propensi Active Rash 2020-0 Univer s ne ty to 1-14 ity of adverse 00:00: [place] reaction 00 [facility] PREDNISO DRUG Active Rash 2020-0 Univers [place] INGREDI -14 ity of 00:00: [address] Social History Social Habit Start Date Stop Date Quantity Comments Source History of tobacco Cigarette Smoker University of use [facility] Sex Assigned At Universit y of [facility] Cigarettes smoked 2019-09-25 2019-09-25 Univers ity of current (pack per 00:00:00 00:00:00 ) - Reported Branch Cigarette 2019-09-25 2019-09-25 University of pack-years 00:00:00 00:00:00 [facility] Alcohol intake 2019-09-25 2019-09-25 University of 00:00:00 00:00:00 [facility] Alcohol Comment 2015-11-27 2015-11-27 occasionally Univers ity of 00:00:00 00:00:00 [facility] Smoking Status Start Date Stop Date Source Current every day smoker 2019-09-25 00:00:00 [facility]ations Ordered Filled Start Stop Current Ordering Indication Dosage Frequency Signature Comments Components Source Medication Medication Date Date Medication? Clinician (SIG) Name Name aspirin 324mg 324 mg, Unive rs chewable 09-25 Oral, ity of tablet 324 17:00: 16:02 ONCE, 1 Neil as mg 00 :00 dose, [facility] 09/25/19 at Branch 1100, Routine ketorolac 30mg 30 mg, Unive rs (TORADOL) 09-25 Slow IV ity of injection 16:00: 16:02 Push, [place] 30 mg 00 :00 ONCE, 1 Medical dose, [facility] 09/25/19 at 1000, NELLA
Fa culty member approving Restricted medication : CHIQUI MIRZA No known No Univers medications [facility] Vital Signs Vital Name Observation Time Observation Value Comments Source Systolic blood 2019-09-25 17:00:00 153 mm[Hg] Univer sity of [facility] Diastolic blood 2019-09-25 17:00:00 99 mm[Hg] Unive rsity [facility] Heart rate 2019-09-25 17:00:00 86 /min [facility] Respiratory rate 2019-09-25 17:00:00 16 /min [facility] Oxygen saturation in 2019-09-25 17:00:00 97 /min [facility] Arterial blood by [facility] Pulse oximetry Branch Body temperature 2019-09-25 15:24:00 36.67 Elaine [facility] Body height 2019-09-25 15:24:00 190.5 cm [facility] Body weight 2019-09-25 15:24:00 124.739 kg [facility] BMI 2019-09-25 15:24:00 34.37 kg/m2 [facility] Systolic blood 2019-09-25 17:00:00 153 mm[Hg] Univer sity of [facility] Diastolic blood 2019-09-25 17:00:00 99 mm[Hg] Unive rsity of [facility] Heart rate 2019-09-25 17:00:00 86 /min [facility] Respiratory rate 2019-09-25 17:00:00 16 /min [facility] Oxygen saturation in 2019-09-25 17:00:00 97 /min [facility] Arterial blood by [facility] Pulse oximetry Branch Body temperature 2019-09-25 15:24:00 36.67 Elaine [facility] Body height 2019-09-25 15:24:00 190.5 cm [facility] Body weight 2019-09-25 15:24:00 124.739 kg [facility] BMI 2019-09-25 15:24:00 34.37 kg/m2 [facility] Procedures Procedure Date / Time Performing Clinician Source Performed XR CHEST 1 VW 2019-09-25 15:57:51 [facility] TROPONIN I 2019-09-25 15:52:00 [facility] HEPATIC FUNCTION PANEL 2019-09-25 15:52:00 [id number] (ALB,T.PRO,BILI [facility] Branch T,BU/BC,ALT,AST,ALK PHOS) BASIC METABOLIC PANEL 2019-09-25 15:52:00 Chiqui Mirza [facility] (NA, K, CL, CO2, Medical Branch GLUCOSE, BUN, CREATININE, CA) CBC WITH DIFFERENTIAL 2019-09-25 15:52:00 Chiqui Mirza [facility] EKG-12 LEAD 2019-09-25 15:46:52 Ch[facility] NOTICE OF PRIVACY 2019-09-25 15:21:38 Doctor Unassigned, No [facility] PRACTICES Name [facility] Branch CONSENT/REFUSAL FOR 2019-09-25 15:21:22 [facility] Unass[facility], [facility] Name Medical [place] Encounters Start End Encounter Admission Attending Care Care Encounter Source Date/Time Date/Time Type Type Clinicians Facility Department ID 2019-09-25 2019-09-25 Emergency LYNNE Mirza [id number] [facility] 09:24:59 11:13:00 Chiqui Ugarte [id number] ity [id number] [facility] 084 Branch 2019-09-25 2019-09-25 Emergency X [facility] ERT [id number] Univers 09:24:59 11:13:[address] [facility] 2019-09-25 2019-09-25 [facility] [id number] 09:24:59 11:13:00 Chiqui Ugarte [id number] [place] [id number] [place] [id number] Results Test Description Test Time Test Comments Results Result Comments Source Troponin I 2019-09-25 16:26:00 Test Item Value Reference Range Interpretation Comme nts TROPONIN I (test code = 0.003 ng/mL See_Comment [Au tomated message] The [id number]) system which ge nerated this result tra [...] ? Lab Interpretation (test Normal code = 09422-7) [facility] (NA, K, CL, CO2, GLUCOSE, BUN, CREATININE, CA)2019-09-25 16:14:00 Test Item Value Reference Range Interpretation Comments NA (test code = 136 mmol/L 135-145 5528808023) K (test code = 4.2 mmol/L 3.5-5 7229667187) CL (test code = 99 mmol/L 98-108 4141466357) CO2 TOTAL (test code = 30 mmol/L 23-31 6202764390) AGAP (test code = 2-16 9130492513) BUN (test code = 17 mg/dL 7-23 7149018474) GLUCOSE (test code = 197 mg/dL 70-110 H 0664229967) CREATININE (test code = 1.10 mg/dL 0.6-1.25 2514561182) CALCIUM (test code = 9.6 mg/dL 8.6-10.6 0542402448) eGFR Calculation mL/min/1.73m2 (Non-) (test code = 3341870090) eGFR Calculation mL/min/1.73m2 () (test code = 7425057645) NANCY (test code = NANCY) Association of [...] tests). Lab Interpretation Abnormal (test code = 25202-0) [facility] (ALB, T.PRO, BILI T, BU/BC, ALT, AST, ALK PHOS)2019-09-25 16:14:00 Test Item Value Reference Range Interpretation Comments TOTAL BILI (test code = 9265523913) 0.7 mg/dL 0.1-1.1 BILI UNCON (test code = 1555501390) 0.6 mg/dL 0.1-1.1 BILI CONJ (test code = 7130229862) 0.0 mg/dL 0-0.3 T PROTEIN (test code = 5097856080) 7.6 g/dL 6.3-8.2 ALBUMIN (test code = 0570074896) 4.4 g/dL 3.5-5 ALK PHOS (test code = 4084199427) 58 U/L 34-122 ALTv (test code = 1742-6) 25 U/L 5-50 AST(SGOT) (test code = 6950157344) 25 U/L 13-40 Lab Interpretation (test code = Normal 91862-3) [facility] WITH [id number] 16:03:00 Test Item Value Reference Range Interpretation Comments WBC (test code = See_Comment [Automated 0439-2) message] The sy stem which generated this result transmitted reference range : 4.20 - 10.70 10*3/?L. The reference range was not used to interpret this result as normal/abnormal . RBC (test code = See_Comment [Automated 499-8) message] The sy stem which generated this [...] RDW-SD (test code = 43.7 fL 38.5-51.6 30309-3) RDW-CV (test code = 12.6 % 12.1-15.4 788-0) PLT (test code = See_Comment [Automated 777-3) message] The sy stem which generated this result transmitted reference range : 150 - 328 10*3/ ?L. The reference r sabine was not used to interpret this result as normal/abnormal . MPV (test code = 10.6 fL 9.8-13 19670-6) NRBC/100 WBC (test See_Comment [Automat ed code = 2757872137) message] The system which generated this result transmitted reference range : 0.0 - 10.0 /100 WBCs. The refer ence range was not u sed to interpret th is result as normal/abnormal . NRBC x10^3 (test code <0.01 See_Comment [Auto mated = 1049704339) message] The s ystem which generated this result transmitted reference range : 10*3/?L. The reference range was not used to interpret this result as normal/abnormal . GRAN MAT (NEUT) % 64.2 % (test code = 770-8) IMM GRAN % (test code 0.30 % = 1989312925) LYMPH % (test code = 28.1 % 736-9) MONO % (test code = 3.9 % 5905-5) EOS % (test code = 3.0 % 713-8) BASO % (test code = 0.5 % 706-2) GRAN MAT x10^3(ANC) 4.76 10*3/uL 1.99-6.95 (test code = 3554571517) IMM GRAN x10^3 (test <0.03 0-0.06 code = 7001916938) LYMPH x10^3 (test code 2.08 10*3/uL 1.09-3.23 = 731-0) MONO x10^3 (test code 0.29 10*3/uL 0.36-1.02 L = 742-7) EOS x10^3 (test code = 0.22 10*3/uL 0.06-0.53 711-2) BASO x10^3 (test code 0.04 10*3/uL 0.01-0.09 = 704-7) Lab Interpretation Abnormal (test code = 68133-7) [facility] 1 [id number] 16:00:47HISTORY: Chest pain. TECHNIQUE: Portable AP erect view of the chest is obtained. No prior cheststudyavailable for comparison. FINDINGS: No acute pneumonia. No pneumothorax or pleural effusion orpulmonary congestion detected. Cardiac size is within normal limits. CONCLUSIONS: No signs of acute cardiopulmonary disease.Rimb, Radiant Results Inft User - 09/25/2019 10:01 AM CSTHISTORY: Chest pain.TECHNIQUE: Portable AP erect view of the chest is obtained. No prior cheststudy available for comparison.FINDINGS: No acute pneumonia. No pneumothorax or pleural effusion orpulmonary congestion detected. Cardiac size is within normal limits. CONCLUSIONS: No signs of acute cardiopulmonary disease. [facility]"
--- NOTE | 2023-07-17 15:05 | ER ---
Nurse's Notes [facility] Name: Jae Heredia Age: 42 yrs Sex: Male : 1980 Arrival Date: 07/17/2023 Time: 14:28 Bed 10 Private MD: Diagnosis: Local infection of the skin and subcutaneous tissue, unspecified;Skin tag Presentation: 07/17 14:44 Chief complaint: Patient states: "I have had a mole on my arm my whole life, a few days hb ago it became painful, red, and itchy.". Coronavirus screen: At this time, the client does not indicate any symptoms associated with coronavirus-19. Ebola Screen: No symptoms or risks identified at this time. Initial Sepsis Screen: Does the patient meet any 2 criteria? No. Patient's initial sepsis screen is negative. Does the patient have a suspected source of infection? No. Patient's initial sepsis screen is negative. Risk Assessment: Do you want to hurt yourself or someone else? Patient reports no desire to harm self or others. Onset of symptoms was July 14, 2023. 14:44 Method Of Arrival: Ambulatory hb 14:44 Acuity: KELLIE 4 hb Triage Assessment: 14:45 General: Appears in no apparent distress. Behavior is calm, cooperative. Pain: Pain hb currently is 9 out of 10 on a pain scale. EENT: No signs and/or symptoms were reported regarding the EENT system. Neuro: Level of Consciousness is awake, alert, obeys commands, Oriented to person, place, time, situation. Cardiovascular: Patient's skin is warm and dry. Respiratory: Respiratory effort is even, unlabored, Respiratory pattern is regular, symmetrical. GI: No signs and/or symptoms were reported involving the gastrointestinal system. : No signs and/or symptoms were reported regarding the genitourinary system. Derm: Skin is pink, warm \\T\\ dry. Wound noted left axilla Wound is reddened. Musculoskeletal: No signs and/or symptoms reported regarding the musculoskeletal system. Historical: - Allergies: 14:45 Prednisone; hb - Home Meds: 14:45 lisinopril 20 mg Oral tablet once [Active]; hb - PMHx: 14:45 Hypertensive disorder; hb - PSHx: 14:45 R wrist; hb - Immunization history:: Adult Immunizations up to date. - Social history:: Smoking status: Patient reports the use of cigarette tobacco products, smokes one-half pack cigarettes per day. Screenin:46 [facility] ED Fall Risk Assessment (Adult) Score/Fall Risk Level 0 - 2 = Low Risk hb Oriented to surroundings, Maintained a safe environment. Abuse screen: Denies threats or abuse. Denies injuries from another. Nutritional screening: No deficits noted. Tuberculosis screening: No symptoms or risk factors identified. Assessment: 14:46 General: See triage assessment. . hb Vital Signs: 14:44 BP 140 / 90; Pulse 90; Resp 18; Temp 98.4(O); Pulse Ox 100% on R/A; Weight 122.47 kg; hb Height 6 ft. 3 in. ; Pain 9/10; 14:44 Body Mass Index 33.75 (122.47 kg, 190.5 cm) hb 14:44 Pain Scale: Adult hb ED Course: 14:29 Patient arrived in ED. rg4 14:45 Triage completed. hb 14:46 Arm band placed on. hb 14:46 Patient has correct armband on for positive identification. Provided Education on: . hb 14:46 No provider procedures requiring assistance completed. Patient did not have IV access hb during this emergency room visit. 14:55 Irihs Mejia FNP is [facility] 14:55 Austyn Angeles MD is Attending Physician. [facility] Administered Medications: No medications were administered Medication: 14:46 VIS not applicable for this client. hb Outcome: 15:05 Discharge ordered by . [facility] 15:19 Discharged to home ambulatory, with family, 15:19 Condition: stable 15:19 Discharge instructions given to patient, family, Instructed on discharge instructions, follow up and referral plans. medication usage, wound care, Demonstrated understanding of instructions, follow-up care, medications, wound care, Prescriptions given X 1, 15:20 Patient left the ED. hb Signatures: Jacque Anderson RN RN Malka Carter 4 Irish Mejia FNP FNP [facility]
--- NOTE | 2023-07-17 15:05 | EDPHYS ---
Physician Documentation [facility] Name: Jae Heredia Age: 42 yrs Sex: Male : 1980 Arrival Date: 07/17/2023 Time: 14:28 Bed 10 Private MD: ED Physician Austyn Angeles HPI: 07/17 14:45 This 42 yrs old Male presents to ER via Ambulatory with complaints of skin infection. [facility] 14:45 42-year-old male reports that a mole under his right armpit that he has had his entire [facility] life became red and inflamed this morning. Denies fever or any other symptoms. History of hypertension.. Historical: - Allergies: 14:45 Prednisone; hb - Home Meds: 14:45 lisinopril 20 mg Oral tablet once [Active]; hb - PMHx: 14:45 Hypertensive disorder; hb - PSHx: 14:45 R wrist; hb - Immunization history:: Adult Immunizations up to date. - Social history:: Smoking status: Patient reports the use of cigarette tobacco products, smokes one-half pack cigarettes per day. ROS: 14:45 Constitutional: Negative for fever, chills, and weight loss, Cardiovascular: Negative [facility] for chest pain, palpitations, and edema, Respiratory: Negative for shortness of breath, cough, wheezing, and pleuritic chest pain, MS/Extremity: Negative for injury and deformity, Neuro: Negative for headache, weakness, numbness, tingling, and seizure, 14:45 Skin: Positive for lesions, 14:45 All other systems are negative, Exam: 14:45 Constitutional: This is a well developed, well nourished patient who is awake, alert, jh7 and in no acute distress. Cardiovascular: Regular rate and rhythm with a normal S1 and S2. No gallops, murmurs, or rubs. Normal PMI, no JVD. No pulse deficits. Respiratory: Lungs have equal breath sounds bilaterally, clear to auscultation and percussion. No rales, rhonchi or wheezes noted. No increased work of breathing, no retractions or nasal flaring. MS/ Extremity: Pulses equal, no cyanosis. Neurovascular intact. Full, normal range of motion. Neuro: Awake and alert, GCS 15, oriented to person, place, time, and situation. Normal gait. 14:45 Skin: Skin tag that appears inflamed present with tiny amount of erythema and scant purulent drainage under the lesion.. Vital Signs: 14:44 BP 140 / 90; Pulse 90; Resp 18; Temp 98.4(O); Pulse Ox 100% on R/A; Weight 122.47 kg; hb Height 6 ft. 3 in. ; Pain 9/10; 14:44 Body Mass Index 33.75 (122.47 kg, 190.5 cm) hb 14:44 Pain Scale: Adult hb MDM: 14:55 Patient medically screened. [facility] 14:59 Differential diagnosis: abscess, cellulitis, Skin tag, skin lesion. Data reviewed: [facility] vital signs, nurses notes. Counseling: I had a detailed discussion with the patient and/or guardian regarding the historical points, exam findings, and any diagnostic results supporting the discharge/admit diagnosis, the need for outpatient follow up, a aquatics lifeguard, to return to the emergency department if symptoms worsen or persist or if there are any questions or concerns that arise at home. Special discussion: Based on the history and exam findings, there is no indication for further emergent testing or inpatient evaluation. I discussed with the patient/guardian the need to see the aquatics lifeguard for further evaluation of the symptoms. For biopsy. Administered Medications: No medications were administered Disposition: 07/18 09:05 Co-signature as Attending Physician, Austyn Angeles MD I reviewed the patient's care rn provided by the Advanced Practice Provider and agree with the diagnosis and treatment plan. Disposition Summary: 07/17/23 15:05 Discharge Ordered Notes: Location: Home [facility] Problem: new [facility] Symptoms: are unchanged [facility] Condition: Stable [facility] Diagnosis - Local infection of the skin and subcutaneous tissue, unspecified [facility] - Skin tag [facility] Followup: [facility] - With: Private Physician - When: 2 - 3 days - Reason: Recheck today's complaints Discharge Instructions: - Discharge Summary Sheet [facility] - Skin Tag, Adult [facility] Forms: - Medication Reconciliation Form [facility] - Thank You Letter [facility] - Antibiotic Education [facility] - Prescription Opioid Use [facility] - Patient Portal Instructions [facility] - Leadership Thank You Letter [facility] Prescriptions: - mupirocin 2 % Topical ointment - apply 1 application TOPICAL route 3 times per day for 7 days; 22 gram; Refills: [facility] 0, Product Selection Permitted Signatures: Austyn Angeles MD MD rn Baxter, Heather, RN RN hb Hadash, Jennifer, CANDY CAGE OPERATOR [email or web address]
[2023-07-17 15:24] VITALS: BP 140/90; TEMP 98.4; O2SAT 100
== END 2023-07-17 15:20 | disposition home or self-care (01) ==
LOC: ER 14:28
DX: L08.9 Local infection of the skin and subcutaneous tissue, unspecified (principal); L91.8 Other hypertrophic disorders of the skin
CPT/HCPCS: 99283

== ENCOUNTER 2023-08-17 12:22 | Emergency (ER) | payer SELFPAY ==
--- OUTSIDE RECORDS SUMMARY | 2023-08-17 12:25 | XMS REPORT | Continuity of Care Document ---
Author Name Unknown Address [address] [facility] [address]. [address] [place] [address] [facility] thconnect Address [address] [facility]. [address] [place] [address] Care Team Providers Care Caseworker Protective Services Name Role Phone PCP, PATIENT DOES NOT HAVE A Primary Care Physic mohan Chiqui Ferrell DO Attending Clinician CHIQUI MIRZA Attending Clinician Unavailab CHIQUI Olivares Admitting Clinician Unavailab le Problems Condition Name Condition Details Condition Category Status Onset Date Resolution Date Last Treatment Date Treating Clinician Comments Source No known active problems No known active problems Disease [facility] Allergies, Adverse Reactions, Alerts Allergy Name Allergy Type Status Severity Reaction(s) Onset Date Inactive Date Treating Clinician Comments Source Predniso ne Propensi ty to adverse reaction s Active Rash 09-25 00:00: 00 [facility] PREDNISO NE DRUG INGREDI Active Rash 09-25 00:00: 00 [facility] Social History Social Habit Start Date Stop Date Quantity Comments Source History of tobacco use Cigarette Smoker [facility] Sex Assigned At [facility] Cigarettes smoked current (pack per day) - Reported 2019-09-25 00:00:00 2019-09-25 00:00:00 [facility] Cigarette pack-years 2019-09-25 00:00:00 2019-09-25 00:00:00 [facility] Alcohol intake 2019-09-25 00:00:00 2019-09-25 00:00:00 [facility] Alcohol Comment 2015-11-27 00:00:00 2015-11-27 00:00:00 occasionally [facility] Smoking Status Start Date Stop Date Source Current every day smoker 2019-09-25 00:00:00 [facility] Medications Ordered Medication Name Filled Medication Name Start Date Stop Date Current Medication? Ordering Clinician Indication Dosage Frequency Signature (SIG) Comments Components Source aspirin chewable tablet 324 mg 09-25 17:00: 00 09-25 16:02 :00 No 324mg 324 mg, Oral, ONCE, 1 dose, Tue09/25/19 at 1100, Routine [facility] ketorolac (TORADOL) injection 30 mg 09-25 16:00: 00 09-25 16:02 :00 No 30mg 30 mg, Slow IV Push, ONCE, 1 dose, Tue09/25/19 at 1000, NELLA
Fa culty member approving Restricted medication : CHIQUI MIRZA [facility] No known medications No Un armando [facility] Vital Signs Vital Name Observation Time Observation Value Comments S ource Systolic blood pressure 2019-09-25 17:00:00 153 mm[Hg] [facility] Diastolic blood pressure 2019-09-25 17:00:00 99 mm[Hg] [facility] Heart rate 2019-09-25 17:00:00 86 /min [facility] Respiratory rate 2019-09-25 17:00:00 16 /min [facility] Oxygen saturation in Arterial blood by Pulse oximetry 2019-09-25 17:00:00 97 /min [facility] Body temperature 2019-09-25 15:24:00 36.67 Elaine [facility] Body height 2019-09-25 15:24:00 190.5 cm [facility] Body weight 2019-09-25 15:24:00 124.739 kg [facility] BMI 2019-09-25 15:24:00 34.37 kg/m2 [facility] Systolic blood pressure 2019-09-25 17:00:00 153 mm[Hg] [facility] Diastolic blood pressure 2019-09-25 17:00:00 99 mm[Hg] [facility] Heart rate 2019-09-25 17:00:00 86 /min [facility] Respiratory rate 2019-09-25 17:00:00 16 /min [facility] Oxygen saturation in Arterial blood by Pulse oximetry 2019-09-25 17:00:00 97 /min [place] [facility] Body temperature 2019-09-25 15:24:00 36.67 Elaine [facility] Body height 2019-09-25 15:24:00 190.5 cm [facility] Body weight 2019-09-25 15:24:00 124.739 kg [facility] BMI 2019-09-25 15:24:00 34.37 kg/m2 [facility] Procedures Procedure Date / Time Performed Performing Clinician Source XR CHEST 1 VW 2019-09-25 15:57:[address] [facility] [address] 2019-09-25 15:52:[address] [facility] HEPATIC FUNCTION PANEL (12281) (ALB,T.PRO,BILI T,BU/BC,ALT,AST,ALK PHOS) 2019-09-25 15:52:00 Chiqui Mirza [facility] BASIC METABOLIC PANEL (NA, K, CL, CO2, GLUCOSE, BUN, CREATININE, CA) 2019-09-25 15:52:00 Chiqui Mirza [facility] CBC WITH DIFFERENTIAL 2019-09-25 15:52:00 Sa ubaldo Mirza [facility] EKG-12 LEAD 2019-09-25 15:46:52 Chiqui Mirza Un [facility] NOTICE OF PRIVACY PRACTICES 2019-09-25 15:21:38 Doctor Unassigned, [place] [facility] CONSENT/REFUSAL FOR DIAGNOSIS AND TREATMENT 2019-09-25 15:21:22 Doctor Unassigned, [place] [facility] Encounters Start Date/Time End Date/Time Encounter Type Admission Type Attending Clinicians Care Facility Care Department Encounter ID Source 2019-09-25 09:24:59 2019-09-25 11:13:00 Emergency Chiqui Mirza [facility] [place] [id number] [facility] 2019-09-25 09:24:59 2019-09-25 11:13:00 Emergency X CHIQUI MIRZA [facility] ERT [id number] [facility] 2019-09-25 09:24:59 2019-09-25 11:13:00 Emergency Chiqui Mirza [facility] [place] [id number] Results Test Description Test Time Test Comments Results Result Co mments Source [facility] (NA, K, CL, CO2, GLUCOSE, BUN, CREATININE, CA)2019-09-25 16:14:00* Test Item Value Reference Range Interpretation Comme nts NA (test code = 2263956981) 136 mmol/L 135-145 K (test code = 0667798222) 4.2 mmol/L 3.5-5 CL (test code = 1281103695) 99 mmol/L 98-108 CO2 TOTAL (test code = 1190470582) 30 mmol/L 23-31 AGAP (test code = 0337614454) 2-16 BUN (test code = 2061310920) 17 mg/dL 7-23 GLUCOSE (test code = 9168684910) 197 mg/dL 70-110 H CREATININE (test code = 5024157248) 1.10 mg/dL 0.6-1.25 CALCIUM (test code = 7384944983) 9.6 mg/dL 8.6-10.6 eGFR Calculation (Non-) (test code = 3096590343) mL/min/1.73m2 eGFR Calculation () (test code = 3065833438) mL/min/1.73m2 NANCY (test code = NANCY) Association of [...] or abnormalities in imaging tests). Lab Interpretation (test code = 10504-3) Abnormal [facility] (ALB, T.PRO, BILI T, BU/BC, ALT, AST, ALK PHOS)2019-09-25 16:14:00* Test Item Value Reference Range Interpretation Comme nts TOTAL BILI (test code = 8643477953) 0.7 mg/dL 0.1-1.1 BILI UNCON (test code = 4083409844) 0.6 mg/dL 0.1-1.1 BILI CONJ (test code = 5686557051) 0.0 mg/dL 0-0.3 T PROTEIN (test code = 2423428711) 7.6 g/dL 6.3-8.2 ALBUMIN (test code = 6628866162) 4.4 g/dL 3.5-5 ALK PHOS (test code = 0151091140) 58 U/L 34-122 ALTv (test code = 1742-6) 25 U/L 5-50 AST(SGOT) (test code = 4327782400) 25 U/L 13-40 Lab Interpretation (test cod e = 46350-1) Normal [facility] WITH [id number] 16:03:00* Test Item Value Reference Range Interpretation Comme nts WBC (test code = 6690-2) See_Comment [Automated messa ge] The system which generated this result transmitted reference range: 4.20 - 10.70 10*3/?L. The reference range was not used to interpret this result as normal/abnormal. RBC (test code = 789-8) See_Comment [Automated National[employer]a ge] The system which generated this result transmitted reference range: 4.26 - 5.52 10*6/?L. The reference range was not used to interpret this result as normal/abnormal. HGB (test code = 718-7) 16.4 g/dL 12.2-16.4 HCT (test code = 4544-3) 48.8 % 38.4-49.3 MCV (test code = 787-2) 93.1 fL 81.7-95.6 MCH (test code = 785-6) 31.3 pg 26.1-32.7 MCHC (test code = 786-4) 33.6 g/dL 31.2-35 RDW-SD (test code = 39395-7) 43.7 fL 38.5-51.6 RDW-CV (test code = 788-0) 12.6 % 12.1-15.4 PLT (test code = 777-3) See_Comment [Automated [employer] ge] The system which generated this result transmitted reference range: 150 - 328 10*3/?L. The reference range was not used to interpret this result as normal/abnormal. MPV (test code = 12299-3) 10.6 fL 9.8-13 NRBC/100 WBC (test code = 3014725617) See_Comment [Automated [employer]age] The system which generated this result transmitted reference range: 0.0 - 10.0 /100 WBCs. The reference range was not used to interpret this result as normal/abnormal. NRBC x10^3 (test code = 7304433477) <0.01 See_Comment [Automated [employer] ge] The system which generated this result transmitted reference range: 10*3/?L. The reference range was not used to interpret this result as normal/abnormal. GRAN MAT (NEUT) % (test code = 770-8) 64.2 % IMM GRAN % (test code = 1113736031) 0.30 % LYMPH % (test code = 736-9) 28.1 % MONO % (test code = 5905-5) 3.9 % EOS % (test code = 713-8) 3.0 % BASO % (test code = 706-2) 0.5 % GRAN MAT x10^3(ANC) (test code = 8028588359) 4.76 10*3/uL 1.99-6.95 IMM GRAN x10^3 (test code = 2452609056) <0.03 0-0.06 LYMPH x10^3 (test code = 731-0) 2.08 10*3/uL 1.09-3.23 MONO x10^3 (test code = 742-7) 0.29 10*3/uL 0.36-1.02 L EOS x10^3 (test code = 711-2) 0.22 10*3/uL 0.06-0.53 BASO x10^3 (test code = 704-7) 0.04 10*3/uL 0.01-0.09 Lab Interpretation (test code = 51392-0) Abnormal [facility] 1 [id number] 16:00:47HISTORY: Chest pain. TECHNIQUE: Portable AP erect view of the chest is obtained. No prior cheststudy available for comparison. FINDINGS: No acute pneumonia. No pneumothorax or pleural effusion orpulmonary congestion detected. Cardiac size is within normal limits. CONCLUSIONS: No signs of acute cardiopulmonary disease.[facility], Radiant Results Inft User - 09/25/2019 10:01 AM CSTHISTORY: Chest pain.TECHNIQUE: Portable AP erect view of the chest is obtained. No prior cheststudy available for comparison.FINDINGS: No acute pneumonia. No pneumothorax or pleural effusion orpulmonary congestion detected.Cardiac size is within normal limits. CONCLUSIONS: No signs of acute cardiopulmonary disease. [facility]"
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
[2023-08-17 17:40] VITALS: TEMP 96.8
[2023-08-17 17:42] VITALS: BP 125/79; O2SAT 99
== END 2023-08-17 14:01 | disposition home or self-care (01) ==
LOC: ER 12:22
DX: S51.832D Puncture wound without foreign body of left forearm, subsequent encounter (principal)
CPT/HCPCS: 99283

== ENCOUNTER → 2023-09-08 | Emergency (ER) | payer OTHER ==
--- OUTSIDE RECORDS SUMMARY | 2023-09-08 17:35 | XMS REPORT | Continuity of Care Document ---
Author Name Unknown Address [address] [facility] [address]. [address] [place] [address] [facility] Address [address] [facility] [address]. [address] [place] [address] Care Team Providers Care [place] Manager Name Role Phone PCP, PATIENT DOES NOT HAVE A Primary Care Physic mohan Chiqui Ferrell DO Attending Clinician [phone] CHIQUI MIRZA Attending Clinician Unavailab CHIQUI Olivares Admitting Clinician Unavailab le Problems Condition Name Condition Details Condition Category Status Onset Date Resolution Date Last Treatment Date Treating Clinician Comments Source No known active problems No known active problems Disease [facility] Allergies, Adverse Reactions, Alerts Allergy Name Allergy Type Status Severity Reaction(s) Onset Date Inactive Date Treating Clinician Comments Source Predniso ne Propensi ty to adverse reaction s Active Rash 09-25 00:00: 00 [facility] PREDNISO NE DRUG INGREDI Active Rash 09-25 00:00: 00 [facility] Social History Social Habit Start Date Stop Date Quantity Comments Source History of tobacco use Cigarette Smoker [facility] Sex Assigned At [facility] Cigarettes smoked current (pack per day) - Reported 2019-09-25 00:00:00 2019-09-25 00:00:00 [facility] Cigarette pack-years 2019-09-25 00:00:00 2019-09-25 00:00:00 [facility] Alcohol intake 2019-09-25 00:00:00 2019-09-25 00:00:00 [facility] Alcohol Comment 2015-11-27 00:00:00 2015-11-27 00:00:00 occasionally [facility] Smoking Status Start Date Stop Date Source Current every day smoker 2019-09-25 00:00:00 [facility] Medications Ordered Medication Name Filled Medication Name Start Date Stop Date Current Medication? Ordering Clinician Indication Dosage Frequency Signature (SIG) Comments Components Source aspirin chewable tablet 324 mg 09-25 17:00: 00 09-25 16:02 :00 No 324mg 324 mg, Oral, ONCE, 1 dose, Tue09/25/19 at 1100, Routine [facility] ketorolac (TORADOL) injection 30 mg 09-25 16:00: 00 09-25 16:02 :00 No 30mg 30 mg, Slow IV Push, ONCE, 1 dose, Tue09/25/19 at 1000, NELLA
Fa culty member approving Restricted medication : CHIQUI MIRZA [facility] No known medications No Un armando [facility] Vital Signs Vital Name Observation Time Observation Value Comments S ource Systolic blood pressure 2019-09-25 17:00:00 153 mm[Hg] [facility] Diastolic blood pressure 2019-09-25 17:00:00 99 mm[Hg] [facility] Heart rate 2019-09-25 17:00:00 86 /min [facility] Respiratory rate 2019-09-25 17:00:00 16 /min [facility] Oxygen saturation in Arterial blood by Pulse oximetry 2019-09-25 17:00:00 97 /min [facility] Body temperature 2019-09-25 15:24:00 36.67 Elaine [facility] Body height 2019-09-25 15:24:00 190.5 cm [facility] Body weight 2019-09-25 15:24:00 124.739 kg [facility] BMI 2019-09-25 15:24:00 34.37 kg/m2 [facility] Systolic blood pressure 2019-09-25 17:00:00 153 mm[Hg] [facility] Diastolic blood pressure 2019-09-25 17:00:00 99 mm[Hg] [facility] Heart rate 2019-09-25 17:00:00 86 /min [facility] Respiratory rate 2019-09-25 17:00:00 16 /min [facility] Oxygen saturation in Arterial blood by Pulse oximetry 2019-09-25 17:00:00 97 /min [facility] Body temperature 2019-09-25 15:24:00 36.67 Elaine [facility] Body height 2019-09-25 15:24:00 190.5 cm [facility] Body weight 2019-09-25 15:24:00 124.739 kg [facility] BMI 2019-09-25 15:24:00 34.37 kg/m2 [facility] Procedures Procedure Date / Time Performed Performing Clinician Source XR CHEST 1 VW 2019-09-25 15:57:51 [facility] 2019-09-25 15:52:00 [facility] (29940) (ALB,T.PRO,BILI T,BU/BC,ALT,AST,ALK PHOS) 2019-09-25 15:52:00 Chiqui Mirza [facility] BASIC METABOLIC PANEL (NA, K, CL, CO2, GLUCOSE, BUN, CREATININE, CA) 2019-09-25 15:52:00 Chiqui Mirza [facility] CBC WITH DIFFERENTIAL 2019-09-25 15:52:00 Sa ubaldo Mirza [facility] EKG-12 LEAD 2019-09-25 15:46:52 Chiqui Mirza Un [facility] NOTICE OF PRIVACY PRACTICES 2019-09-25 15:21:38 Doctor Unassigned, [place] [facility] CONSENT/REFUSAL FOR DIAGNOSIS AND TREATMENT 2019-09-25 15:21:22 Doctor Unassigned, [place] [facility] Encounters Start Date/Time End Date/Time Encounter Type Admission Type Attending Clinicians Care Facility Care Department Encounter ID Source 2019-09-25 09:24:59 2019-09-25 11:13:00 Emergency Chiqui Mirza [facility] [id number] [facility] 2019-09-25 09:24:59 2019-09-25 11:13:00 Emergency X CHIQUI MIRZA [facility] ERT [id number] [facility] 2019-09-25 09:24:59 2019-09-25 11:13:00 Emergency Chiqui Mirza [facility] [id number] Results Test Description Test Time Test Comments Results Result Co mments Source [facility] (NA, K, CL, CO2, GLUCOSE, BUN, CREATININE, CA)2019-09-25 16:14:00* Test Item Value Reference Range Interpretation Comme nts NA (test code = 0556453858) 136 mmol/L 135-145 K (test code = 1578981069) 4.2 mmol/L 3.5-5 CL (test code = 4361520556) 99 mmol/L 98-108 CO2 TOTAL (test code = 5973845741) 30 mmol/L 23-31 AGAP (test code = 5199362958) 2-16 BUN (test code = 4103340420) 17 mg/dL 7-23 GLUCOSE (test code = 0979847886) 197 mg/dL 70-110 H CREATININE (test code = 7337176138) 1.10 mg/dL 0.6-1.25 CALCIUM (test code = 6019682842) 9.6 mg/dL 8.6-10.6 eGFR Calculation (Non-) (test code = 3615030451) mL/min/1.73m2 eGFR Calculation () (test code = 7145398884) mL/min/1.73m2 NANCY (test code = NANCY) Association [...] imaging tests). Lab Interpretation (test code = 76121-6) [facility] (ALB, T.PRO, BILI T, BU/BC, ALT, AST, ALK PHOS)2019-09-25 16:14:00* Test Item Value Reference Range Interpretation Comme nts TOTAL BILI (test code = 1661333489) 0.7 mg/dL 0.1-1.1 BILI UNCON (test code = 7936615160) 0.6 mg/dL 0.1-1.1 BILI CONJ (test code = 8408479654) 0.0 mg/dL 0-0.3 T PROTEIN (test code = 2751608137) 7.6 g/dL 6.3-8.2 ALBUMIN (test code = 1369781477) 4.4 g/dL 3.5-5 ALK PHOS (test code = 6302754658) 58 U/L 34-122 ALTv (test code = 1742-6) 25 U/L 5-50 AST(SGOT) (test code = 9205400213) 25 U/L 13-40 Lab Interpretation (test cod e = 71784-1) Normal [facility] WITH [id number] 16:03:00* Test Item Value Reference Range Interpretation Comme nts WBC (test code = 6690-2) See_Comment [Automated messa ge] The system which generated this result transmitted reference range: 4.20 - 10.70 10*3/?L. The reference range was not used to interpret this result as normal/abnormal. RBC (test code = 789-8) See_Comment [Automated [employer] ge] The system which generated this result [...] 33.6 g/dL 31.2-35 RDW-SD (test code = 61319-3) 43.7 fL 38.5-51.6 RDW-CV (test code = 788-0) 12.6 % 12.1-15.4 PLT (test code = 777-3) See_Comment [Automated [employer] ge] The system which generated this result transmitted reference range: 150 - 328 10*3/?L. The reference range was not used to interpret this result as normal/abnormal. MPV (test code = 20474-3) 10.6 fL 9.8-13 NRBC/100 WBC (test code = 0587453478) See_Comment [Automated [employer] ssage] The system which generated this result transmitted reference range: 0.0 - 10.0 /100 WBCs. The reference range was not used to interpret this result as normal/abnormal. NRBC x10^3 (test code = 3839696373) <0.01 See_Comment [Automated [employer] ge] The system which generated this result transmitted reference range: 10*3/?L. The reference range was not used to interpret this result as normal/abnormal. GRAN MAT (NEUT) % (test code = 770-8) 64.2 % IMM GRAN % (test code = 8058097634) 0.30 % LYMPH % (test code = 736-9) 28.1 % MONO % (test code = 5905-5) 3.9 % EOS % (test code = 713-8) 3.0 % BASO % (test code = 706-2) 0.5 % GRAN MAT x10^3(ANC) (test code = 1021588683) 4.76 10*3/uL 1.99-6.95 IMM GRAN x10^3 (test code = 0952312816) <0.03 0-0.06 LYMPH x10^3 (test code = 731-0) 2.08 10*3/uL 1.09-3.23 MONO x10^3 (test code = 742-7) 0.29 10*3/uL 0.36-1.02 L EOS x10^3 (test code = 711-2) 0.22 10*3/uL 0.06-0.53 BASO x10^3 (test code = 704-7) 0.04 10*3/uL 0.01-0.09 Lab Interpretation (test code = 40262-0) Abnormal [facility] 1 [id number] 16:00:47HISTORY: Chest pain. TECHNIQUE: Portable AP erect view of the chest is obtained. No prior cheststudy available for comparison. FINDINGS: No acute pneumonia. No pneumothorax or pleural effusion orpulmonary congestion detected. Cardiac size is within normal limits. CONCLUSIONS: No signs of acute cardiopulmonary disease.[facility], Radiant Results Inft User - 09/25/2019 10:01 AM CSTHISTORY: Chest pain.TECHNIQUE: Portable AP erect view of the chest is obtained. No prior cheststudy available for comparison.FINDINGS: No acute pneumonia. No pneumothorax or pleural effusion orpulmonary congestion detected.Cardiac size is within normal limits. CONCLUSIONS: No signs of acute cardiopulmonary disease. [facility]"
--- NOTE | 2023-09-08 18:19 | RAD REPORT ---
EXAM DESCRIPTION: RAD - Wrist Left 3 View - 09/08/2023 6:08 pm CLINICAL HISTORY: Pain;Swelling COMPARISON: Wrist Left 3 View dated 03/24/2019 FINDINGS/IMPRESSION: No acute fracture. No malalignment. No significant focal degenerative changes.
--- NOTE | 2023-09-08 18:53 | RAD REPORT ---
EXAM DESCRIPTION: US - UPPER EXTREMITY VENOUS UNILATE - 09/08/2023 6:45 pm CLINICAL HISTORY: Wrist swelling COMPARISON: None. TECHNIQUE: Real-time sonographic evaluation of the left upper extremity venous system was performed. FINDINGS: Normal compressibility, flow augmentation, phasic flow and spontaneous flow is identified in the left upper extremity venous system. No intraluminal filling defects seen. IMPRESSION: No venous thrombosis in the left upper extremity identified.
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
[2023-09-08 22:18] VITALS: TEMP 98.1
[2023-09-08 22:25] VITALS: BP 130/82; O2SAT 97
== END ==
LOC: ER 17:32
DX: L03.311 Cellulitis of abdominal wall (principal); Z88.8 Allergy status to other drugs, medicaments and biological substances
CPT/HCPCS: 93971; 99283

== ENCOUNTER 2024-02-10 16:41 | Emergency (ER) | payer OTHER, SELFPAY ==
--- OUTSIDE RECORDS SUMMARY | 2024-02-10 16:48 | XMS REPORT | Continuity of Care Document ---
Author Name Unknown Address [address] [facility] [address]. [address] [place] [address] [facility] thconnect Address [address] [facility] [place] [address] Care Team Providers Care Glycerin Operator Name Role Phone PCP, PATIENT DOES NOT HAVE A Primary Care Physic mohan Chiqui Ferrell DO Attending Clinician [phone] CHIQUI MIRZA Attending Clinician Unavailab CHIQUI Olivares Admitting Clinician Unavailab le Problems Condition Name Condition Details Condition Category Status Onset Date Resolution Date Last Treatment Date Treating Clinician Comments Source No known active problems No known active problems Disease [facility] Allergies, Adverse Reactions, Alerts Allergy Name Allergy Type Status Severity Reaction(s) Onset Date Inactive Date Treating Clinician Comments Source Predniso ne Propensi ty to adverse reaction s Active Rash 09-25 00:00: 00 [facility] PREDNISO NE DRUG INGREDI Active Rash 09-25 00:00: 00 [facility] Social History Social Habit Start Date Stop Date Quantity Comments Source History of tobacco use Cigarette Smoker [facility] Sex Assigned At [facility] Cigarettes smoked current (pack per day) - Reported 2019-09-25 00:00:00 2019-09-25 00:00:00 [facility] Cigarette pack-years 2019-09-25 00:00:00 2019-09-25 00:00:00 [facility] Alcohol intake 2019-09-25 00:00:00 2019-09-25 00:00:00 [facility] Alcohol Comment 2015-11-27 00:00:00 2015-11-27 00:00:00 occasionally [facility] Smoking Status Start Date Stop Date Source Current every day smoker 2019-09-25 00:00:00 [facility] Medications Ordered Medication Name Filled Medication Name Start Date Stop Date Current Medication? Ordering Clinician Indication Dosage Frequency Signature (SIG) Comments Components Source aspirin chewable tablet 324 mg 09-25 17:00: 00 09-25 16:02 :00 No 324mg 324 mg, Oral, ONCE, 1 dose, Tue09/25/19 at 1100, Routine [facility] ketorolac (TORADOL) injection 30 mg 09-25 16:00: 00 09-25 16:02 :00 No 30mg 30 mg, Slow IV Push, ONCE, 1 dose, Tue09/25/19 at 1000, NELLA
Fa culty member approving Restricted medication : CHIQUI MIRZA [facility] No known medications No Un armando [facility] Vital Signs Vital Name Observation Time Observation Value Comments S ource Systolic blood pressure 2019-09-25 17:00:00 153 mm[Hg] [facility] Diastolic blood pressure 2019-09-25 17:00:00 99 mm[Hg] [facility] Heart rate 2019-09-25 17:00:00 86 /min [facility] Respiratory rate 2019-09-25 17:00:00 16 /min [facility] Oxygen saturation in Arterial blood by Pulse oximetry 2019-09-25 17:00:00 97 /min [facility] Body temperature 2019-09-25 15:24:00 36.67 Elaine [facility] Body height 2019-09-25 15:24:00 190.5 cm [facility] Body weight 2019-09-25 15:24:00 124.739 kg [facility] BMI 2019-09-25 15:24:00 34.37 kg/m2 [facility] Systolic blood pressure 2019-09-25 17:00:00 153 mm[Hg] [facility] Diastolic blood pressure 2019-09-25 17:00:00 99 mm[Hg] [facility] Heart rate 2019-09-25 17:00:00 86 /min [facility] Respiratory rate 2019-09-25 17:00:00 16 /min [facility] Oxygen saturation in Arterial blood by Pulse oximetry 2019-09-25 17:00:00 97 /min [facility] Body temperature 2019-09-25 15:24:00 36.67 Elaine [facility] Body height 2019-09-25 15:24:00 190.5 cm [facility] Body weight 2019-09-25 15:24:00 124.739 kg [facility] BMI 2019-09-25 15:24:00 34.37 kg/m2 [facility] Procedures Procedure Date / Time Performed Performing Clinician Source XR CHEST 1 VW 2019-09-25 15:57:51 [facility] 2019-09-25 15:52:00 [facility] HE[facility] (69259) (ALB,T.PRO,BILI T,BU/BC,ALT,AST,ALK PHOS) 2019-09-25 15:52:00 Chiqui Mirza [facility] BASIC METABOLIC PANEL (NA, K, CL, CO2, GLUCOSE, BUN, CREATININE, CA) 2019-09-25 15:52:00 Chiqui Mirza [facility] CBC WITH DIFFERENTIAL 2019-09-25 15:52:00 Sa ubaldo Mirza [facility] EKG-12 LEAD 2019-09-25 15:46:52 Chiqui Mirza Un [facility] NOTICE OF PRIVACY PRACTICES 2019-09-25 15:21:38 Doctor Unassigned, [place] [facility] CONSENT/REFUSAL FOR DIAGNOSIS AND TREATMENT 2019-09-25 15:21:22 Doctor Unassigned, [place] [facility] Encounters Start Date/Time End Date/Time Encounter Type Admission Type Attending Clinicians Care Facility Care Department Encounter ID Source 2019-09-25 09:24:59 2019-09-25 11:13:00 Emergency Chiqui Mirza [facility] [id number] [facility] 2019-09-25 09:24:59 2019-09-25 11:13:00 Emergency X CHIQUI MIRZA [facility] ERT [id number] [facility] 2019-09-25 09:24:59 2019-09-25 11:13:00 Emergency Chiqui Mirza [facility] [id number] Results Test Description Test Time Test Comments Results Result Co mments Source [facility] (NA, K, CL, CO2, GLUCOSE, BUN, CREATININE, CA)2019-09-25 16:14:00* Test Item Value Reference Range Interpretation Comme nts NA (test code = 1647974995) 136 mmol/L 135-145 K (test code = 6397738668) 4.2 mmol/L 3.5-5 CL (test code = 5881131571) 99 mmol/L 98-108 CO2 TOTAL (test code = 4561987135) 30 mmol/L 23-31 AGAP (test code = 8805673135) 2-16 BUN (test code = 9400532100) 17 mg/dL 7-23 GLUCOSE (test code = 1856149337) 197 mg/dL 70-110 H CREATININE (test code = 0542222959) 1.10 mg/dL 0.6-1.25 CALCIUM (test code = 8773076613) 9.6 mg/dL 8.6-10.6 eGFR Calculation (Non-) (test code = 5231239955) mL/min/1.73m2 eGFR Calculation () (test code = 2904717109) mL/min/1.73m2 NANCY (test code = NANCY) Association [...] imaging tests). Lab Interpretation (test code = 24634-1) [facility] (ALB, T.PRO, BILI T, BU/BC, ALT, AST, ALK PHOS)2019-09-25 16:14:00* Test Item Value Reference Range Interpretation Comme nts TOTAL BILI (test code = 2417724490) 0.7 mg/dL 0.1-1.1 BILI UNCON (test code = 4275308829) 0.6 mg/dL 0.1-1.1 BILI CONJ (test code = 7633034210) 0.0 mg/dL 0-0.3 T PROTEIN (test code = 1187891308) 7.6 g/dL 6.3-8.2 ALBUMIN (test code = 5261355452) 4.4 g/dL 3.5-5 ALK PHOS (test code = 0877859674) 58 U/L 34-122 ALTv (test code = 1742-6) 25 U/L 5-50 AST(SGOT) (test code = 6700020022) 25 U/L 13-40 Lab Interpretation (test cod e = 42290-5) Normal [facility] WITH [id number] 16:03:00* Test Item Value Reference Range Interpretation Comme nts WBC (test code = 6690-2) See_Comment [Automated messa ge] The system which generated this result transmitted reference range: 4.20 - 10.70 10*3/?L. The reference range was not used to interpret this result as normal/abnormal. RBC (test code = 789-8) See_Comment [Automated [employer] ge] The system which generated this result [...] 33.6 g/dL 31.2-35 RDW-SD (test code = 21678-6) 43.7 fL 38.5-51.6 RDW-CV (test code = 788-0) 12.6 % 12.1-15.4 PLT (test code = 777-3) See_Comment [Automated [employer] ge] The system which generated this result transmitted reference range: 150 - 328 10*3/?L. The reference range was not used to interpret this result as normal/abnormal. MPV (test code = 55178-5) 10.6 fL 9.8-13 NRBC/100 WBC (test code = 4110600712) See_Comment [Automated [employer] ssage] The system which generated this result transmitted reference range: 0.0 - 10.0 /100 WBCs. The reference range was not used to interpret this result as normal/abnormal. NRBC x10^3 (test code = 2514677415) <0.01 See_Comment [Automated [employer] ge] The system which generated this result transmitted reference range: 10*3/?L. The reference range was not used to interpret this result as normal/abnormal. GRAN MAT (NEUT) % (test code = 770-8) 64.2 % IMM GRAN % (test code = 3767935214) 0.30 % LYMPH % (test code = 736-9) 28.1 % MONO % (test code = 5905-5) 3.9 % EOS % (test code = 713-8) 3.0 % BASO % (test code = 706-2) 0.5 % GRAN MAT x10^3(ANC) (test code = 4827460217) 4.76 10*3/uL 1.99-6.95 IMM GRAN x10^3 (test code = 1383803183) <0.03 0-0.06 LYMPH x10^3 (test code = 731-0) 2.08 10*3/uL 1.09-3.23 MONO x10^3 (test code = 742-7) 0.29 10*3/uL 0.36-1.02 L EOS x10^3 (test code = 711-2) 0.22 10*3/uL 0.06-0.53 BASO x10^3 (test code = 704-7) 0.04 10*3/uL 0.01-0.09 Lab Interpretation (test code = 34236-2) Abnormal [facility] 1 [id number] 16:00:47HISTORY: Chest pain. TECHNIQUE: Portable AP erect view of the chest is obtained. No prior cheststudy available for comparison. FINDINGS: No acute pneumonia. No pneumothorax or pleural effusion orpulmonary congestion detected. Cardiac size is within normal limits. CONCLUSIONS: No signs of acute cardiopulmonary disease.[facility], Radiant Results Inft User - 09/25/2019 10:01 AM CSTHISTORY: Chest pain.TECHNIQUE: Portable AP erect view of the chest is obtained. No prior cheststudy available for comparison.FINDINGS: No acute pneumonia. No pneumothorax or pleural effusion orpulmonary congestion detected.Cardiac size is within normal limits. CONCLUSIONS: No signs of acute cardiopulmonary disease. [facility]"
[2024-02-10] MEDS ORDERED: CYCLOBENZAPRINE 10 MG TAB ONE (17:24)
[2024-02-10] MEDS ORDERED: HYDROCODONE/APAP 5/325 MG TAB ONE (17:24)
--- NOTE | 2024-02-10 19:02 | RAD REPORT ---
EXAM DESCRIPTION: US - UPPER EXTREMITY VENOUS UNILATE - 02/10/2024 5:26 pm CLINICAL HISTORY: Pain COMPARISON: None. TECHNIQUE: Real-time sonographic evaluation of the right upper extremity deep venous system was perf ormed. FINDINGS: Normal compressibility, flow augmentation, phasic flow and spontaneous flow is identified in the right upper extremity deep venous system. No intraluminal filling defects seen. IMPRESSION: No DVT in the right upper extremity.
--- NOTE | 2024-02-10 19:07 | RAD REPORT ---
EXAM DESCRIPTION: RAD - Chest Pa And Lat (2 Views) - 02/10/2024 5:44 pm CLINICAL HISTORY: right shoulder pain, cough COMPARISON: Chest Single View dated 06/20/2019; Chest Single View dated 12/08/2017; CHEST SINGLE VIEW dated 01/21/2014 TECHNIQUE: PA and lateral views of the chest were obtained. FINDINGS: The lungs are clear. Heart size is normal and central vasculature is within normal limits. No pleural effusion or pneumothorax seen. No acute bony finding noted. IMPRESSION: No acute cardiopulmonary process.
--- NOTE | 2024-02-10 19:12 | EDPHYS ---
Physician Documentation [facility] Name: Jae Heredia Age: 43 yrs Sex: Male : 1980 Arrival Date: 02/10/2024 Time: 16:41 Bed 7 Private MD: ED Physician Silvestre Castañeda HPI: 02/09 16:52 This 43 yrs old Male presents to ER via Ambulatory with complaints of Shoulder Pain. ms3 16:52 43-year-old male with past medical history of hypertension presents to the emergency ri3 department for right shoulder pain has been ongoing for 1 week. Patient was seen in the [facility] emergency department and was told he had muscle spasms. Patient has taken ibuprofen since that time without relief. Patient states pain is worse with coughing. He describes the pain as sharp. Patient denies any alleviating or inciting factors. Historical: - Allergies: 16:50 Prednisone; as6 - PMHx: 16:50 Hypertensive disorder; as6 - PSHx: 16:50 R wrist; as6 - Immunization history:: Adult Immunizations up to date. - Infectious Disease History:: Denies. - Social history:: Smoking status: Patient reports the use of cigarette tobacco products, smokes one-half pack cigarettes per day. ROS: 16:52 Constitutional: Negative for fever, and chills. Neck: Negative for injury, pain, and ms3 swelling, Cardiovascular: Negative for chest pain, and palpitations. Respiratory: Negative for shortness of breath, cough, wheezing, and pleuritic chest pain, Abdomen/GI: Negative for abdominal pain, nausea, vomiting, diarrhea, and constipation, 16:52 MS/extremity: Positive for Right shoulder pain, Exam: 16:52 Constitutional: This is a well developed, well nourished patient who is awake, alert, ms3 and in no acute distress. Neck: Trachea midline, no cervical lymphadenopathy. Supple, full range of motion without nuchal rigidity, or vertebral point tenderness. No Meningismus. Chest/axilla: Normal chest wall appearance and motion. Nontender with no deformity. Cardiovascular: Regular rate and rhythm with a normal S1 and S2. No gallops, murmurs, or rubs. Normal PMI, no JVD. No pulse deficits. Respiratory: Lungs have equal breath sounds bilaterally, clear to auscultation and percussion. No rales, rhonchi or wheezes noted. No increased work of breathing, no retractions or nasal flaring. Abdomen/GI: Soft, non-tender, with normal bowel sounds. No distension or tympany. No guarding or rebound. No evidence of tenderness throughout. Skin: Warm, dry with normal turgor. Normal color with no rashes, no lesions, and no evidence of cellulitis. 16:52 Musculoskeletal/extremity: Extremities: noted in the Right shoulder: pain, There is no evidence of decreased ROM, swelling, tenderness, Vital Signs: 16:47 BP 136 / 98; Pulse 88; Resp 18 S; Temp 97.4(TE); Pulse Ox 96% on R/A; Weight 124.28 kg as6 (R); Height 6 ft. 3 in. (R); Pain 10/10; 18:03 Pain 7/10; nj1 19:22 BP 125 / 83; Pulse 76; Resp 16; Pulse Ox 100% on R/A; ph 16:47 Body Mass Index 34.25 (124.28 kg, 190.5 cm) as6 16:47 Pain Scale: Adult as6 18:03 Pain Scale: Adult nj1 MDM: 16:54 Differential diagnosis: DJD, tendonitis, DVT versus pneumonia. ms3 16:55 Patient medically screened. ms3 18:10 Transition of care: After a detail discussion of the patient's case, care is ms3 transferred to Silvestre Castañeda MD. 02/09 16:52 Order name: Chest Pa And Lat (2 Views) XRAY ms3 02/09 17:08 Order name: UPPER EXTREMITY VENOUS UNILATE EDMS Administered Medications: 17:29 Drug: HYDROcodone-acetaminophen PO 5 mg-325 mg 1 tabs PO once Route: PO; nj1 18:03 Follow up: Pain 7/10 Adult; Response: No adverse reaction; Pain is decreased nj1 17:29 Drug: Cyclobenzaprine PO 10 mg PO once Route: PO; nj1 18:03 Follow up: Response: No adverse reaction nj1 Disposition Summary: 02/10/24 19:12 Discharge Ordered Notes: Location: Home blue Condition: Stable blue Diagnosis - Pain in right shoulder blue Followup: ms3 - With: Roberto Carlos Antunez, DO - When: 2 - 3 days - Reason: Recheck today's complaints Discharge Instructions: - Discharge Summary Sheet ms3 - Shoulder Pain ms3 Forms: - Medication Reconciliation Form blue - Antibiotic Education blue - Prescription Opioid Use blue - Patient Portal Instructions blue - Leadership Thank You Letter blue Prescriptions: - Ibuprofen 600 mg Oral Tablet - take 1 tablet ORAL route every 6 hours As needed take with food; 30 tablet; ms3 Refills: 0, Product Selection Permitted - Cyclobenzaprine 10 mg Oral tablet - take 1 tablet ORAL route every 8 hours As needed; 20 tablet; Refills: 0, ms3 Product Selection Permitted Signatures: Dispatcher [employer] EDSilvestre Montero MD MD cha Sims, Marcus, DO DO ms3 Tigre Piña RN RN as6 Tonya Knapp RN RN nj1 Corrections: (The following items were deleted from the chart) 17:08 16:52 Extremity Venous [employer]+[email or web address].RAD.BRZ ordered. EDFL EDMS
--- NOTE | 2024-02-10 19:12 | ER ---
Nurse's Notes [facility] Name: Jae Heredia Age: 43 yrs Sex: Male : 1980 Arrival Date: 02/10/2024 Time: 16:41 Bed 7 Private MD: Diagnosis: Pain in right shoulder Presentation: 02/09 16:47 Chief complaint: Patient states: right shoulder pain x1 week. Coronavirus screen: At as6 this time, the client does not indicate any symptoms associated with coronavirus-19. Ebola Screen: No symptoms or risks identified at this time. Initial Sepsis Screen: Does the patient meet any 2 criteria? No. Patient's initial sepsis screen is negative. Does the patient have a suspected source of infection? No. Patient's initial sepsis screen is negative. Risk Assessment: Do you want to hurt yourself or someone else? Patient reports no desire to harm self or others. Onset of symptoms was February 03, 2024. 16:47 Method Of Arrival: Ambulatory as6 16:47 Acuity: KELLIE 4 as6 Historical: - Allergies: 16:50 Prednisone; as6 - PMHx: 16:50 Hypertensive disorder; as6 - PSHx: 16:50 R wrist; as6 - Immunization history:: Adult Immunizations up to date. - Infectious Disease History:: Denies. - Social history:: Smoking status: Patient reports the use of cigarette tobacco products, smokes one-half pack cigarettes per day. Screenin:10 [facility] ED Fall Risk Assessment (Adult) History of falling in the last 3 months, nj1 including since admission No falls in past 3 months (0 pts) Confusion or Disorientation No (0 pts) Intoxicated or Sedated No (0 pts) Impaired Gait No (0 pts) Mobility Assist Device Used No (0 pt) Altered Elimination No (0 pt) Score/Fall Risk Level 0 - 2 = Low Risk Oriented to surroundings, Maintained a safe environment, Hourly rounding (assess needs \T\ fall precautionary measures) done. Abuse screen: Denies threats or abuse. Denies injuries from another. Nutritional screening: No deficits noted. Tuberculosis screening: No symptoms or risk factors identified. Assessment: 17:08 General: Appears in no apparent distress. comfortable, Behavior is calm, cooperative, nj1 appropriate for age. Pain: Complains of pain in anterior aspect of right shoulder and posterior aspect of right shoulder Pain currently is 10 out of 10 on a pain scale. Pain began about a week ago. Aggravated by cough. Neuro: Level of Consciousness is awake, alert, obeys commands, Oriented to person, place, time, situation. Cardiovascular: Patient's skin is warm and dry. Respiratory: Airway is patent Respiratory effort is even, unlabored. Musculoskeletal: Reports pain in right shoulder. 18:03 Reassessment: Patient appears in no apparent distress at this time. Patient and/or nj1 family updated on plan of care and expected duration. Pain level reassessed. Patient is alert, oriented x 3, equal unlabored respirations, skin warm/dry/pink. 19:22 Reassessment: Patient appears in no apparent distress at this time. Patient and/or ph family updated on plan of care and expected duration. Pain level reassessed. Patient is alert, oriented x 3, equal unlabored respirations, skin warm/dry/pink. Patient states symptoms have improved. General: Appears in no apparent distress. comfortable, Behavior is calm, cooperative, appropriate for age. Pain: Complains of pain in right shoulder Pain currently is 4 out of 10 on a pain scale. Neuro: Level of Consciousness is awake, alert, obeys commands, Oriented to person, place, time, situation. Cardiovascular: Denies chest pain, shortness of breath, Patient's skin is warm and dry. Respiratory: Airway is patent Respiratory effort is even, unlabored, Respiratory pattern is regular, symmetrical. Vital Signs: 16:47 BP 136 / 98; Pulse 88; Resp 18 S; Temp 97.4(TE); Pulse Ox 96% on R/A; Weight 124.28 kg as6 (R); Height 6 ft. 3 in. (R); Pain 10/10; 18:03 Pain 7/10; nj1 19:22 BP 125 / 83; Pulse 76; Resp 16; Pulse Ox 100% on R/A; ph 16:47 Body Mass Index 34.25 (124.28 kg, 190.5 cm) as6 16:47 Pain Scale: Adult as6 18:03 Pain Scale: Adult nj1 ED Course: 16:42 Patient arrived in ED. rg4 16:44 Bebeto Gordon DO is Attending Physician. ms3 16:47 Arm band placed on left wrist. as6 16:50 Triage completed. as6 17:05 Tonya Knapp, RN is Primary Nurse. nj1 17:11 Patient has correct armband on for positive identification. Bed in low position. Call nj1 light in reach. Adult w/ patient. Provided Education on: call light, fall precautions. 17:28 UPPER EXTREMITY VENOUS UNILATE In Process Unspecified. EDMS 17:46 Chest Pa And Lat (2 Views) XRAY In Process Unspecified. EDMS 18:10 Attending Physician role handed off by Bebeto Gordon DO ms3 18:10 Silvestre Castañeda MD is Attending Physician. ms3 19:12 Roberto Carlos Antunez DO is Referral Physician. [facility] 19:22 No provider procedures requiring assistance completed. Patient did not have IV access ph during this emergency room visit. Administered Medications: 17:29 Drug: HYDROcodone-acetaminophen PO 5 mg-325 mg 1 tabs PO once Route: PO; nj1 18:03 Follow up: Pain 7/10 Adult; Response: No adverse reaction; Pain is decreased nj1 17:29 Drug: Cyclobenzaprine PO 10 mg PO once Route: PO; nj1 18:03 Follow up: Response: No adverse reaction nj1 Medication: 19:22 VIS not applicable for this client. ph Outcome: 19:12 Discharge ordered by . [facility] 19:22 Discharged to home ambulatory, with significant other, ph 19:22 Condition: good 19:22 Discharge instructions given to patient, significant other, Instructed on discharge instructions, follow up and referral plans. medication usage, Demonstrated understanding of instructions, follow-up care, medications, Prescriptions given X 2, 19:24 Patient left the ED. ph Signatures: Dispatcher [employer] EDMO Silvestre Castañeda MD MD cha Hall, Patricia, RN RN Malka Navarro rg4 Bebeto Gordon DO DO ms3 Tigre Piña RN RN as6 Tonya Knapp RN RN nj1
[2024-02-10 19:33] VITALS: BP 125/83; TEMP 97.4; O2SAT 100
== END 2024-02-10 19:24 | disposition home or self-care (01) ==
LOC: ER 16:41
DX: M25.511 Pain in right shoulder (principal)
CPT/HCPCS: 71046; 93971; 99283

== ENCOUNTER 2024-04-25 21:04 | Emergency (ER) | payer OTHER, SELFPAY ==
[2024-04-25] MEDS ORDERED: LIDOCAINE 1% 20 ML MDV ONE (22:03)
[2024-04-25] MEDS ORDERED: TDAP (DIPHTH,PERTUSS(ACELL),TET VAC) 0.5 ML VIAL IMVAC ONE (22:03)
--- NOTE | 2024-04-25 23:42 | ER ---
Nurse's Notes [facility] Name: Jae Heredia Age: 43 yrs Sex: Male : 1980 Arrival Date: 04/25/2024 Time: 21:04 Bed 10 Private MD: Diagnosis: Laceration without foreign body of scalp Presentation: 04/25 21:15 Chief complaint: Patient states: Dad was mowing grass and something flew up and hit in vc1 head, no I feel dizzy and lightheaded. Coronavirus screen: Client denies travel out of the [place] in the last 14 days. At this time, the client does not indicate any symptoms associated with coronavirus-19. Ebola Screen: Patient negative for fever greater than or equal to 101.5 degrees Fahrenheit, and additional compatible Ebola Virus Disease symptoms Patient denies exposure to infectious person. Patient denies travel to an Ebola-affected area in the 21 days before illness onset. No symptoms or risks identified at this time. Complicating Factors: There are no complicating factors for this patient. Initial Sepsis Screen: Does the patient meet any 2 criteria? No. Patient's initial sepsis screen is negative. Does the patient have a suspected source of infection? No. Patient's initial sepsis screen is negative. Risk Assessment: Do you want to hurt yourself or someone else? Patient reports no desire to harm self or others. Onset of symptoms was April 25, 2024. 21:15 Method Of Arrival: Ambulatory vc1 21:15 Acuity: KELLIE 4 vc1 Triage Assessment: 04/26 00:28 General: Appears in no apparent distress. uncomfortable, well groomed, well developed, vc1 well nourished, Behavior is calm, cooperative, appropriate for age. Pain: Complains of pain in right side of the back of head. Historical: - Allergies: 04/25 21:17 Prednisone; vc1 - Home Meds: 21:17 lisinopril 20 mg Oral tab once [Active]; vc1 - PMHx: 21:17 Hypertensive disorder; vc1 - PSHx: 21:17 R wrist; vc1 - Immunization history:: Client reports having NOT received the Covid vaccine. - Infectious Disease History:: Denies. - Social history:: Smoking status: Patient reports the use of cigarette tobacco products, smokes one-half pack cigarettes per day. - Family history:: not pertinent. Screenin:17 Abuse screen: Denies threats or abuse. Nutritional screening: No deficits noted. vc1 Tuberculosis screening: No symptoms or risk factors identified. 22:00 [facility] ED Fall Risk Assessment (Adult) History of falling in the last 3 months, vc1 including since admission No falls in past 3 months (0 pts) Confusion or Disorientation No (0 pts) Intoxicated or Sedated No (0 pts) Impaired Gait No (0 pts) Mobility Assist Device Used No (0 pt) Altered Elimination No (0 pt) Score/Fall Risk Level 0 - 2 = Low Risk Oriented to surroundings, Maintained a safe environment, Educated pt \T\ family on fall prevention, incl call for assistance when getting out of bed. Assessment: 23:50 General: Appears in no apparent distress. uncomfortable, Behavior is calm, cooperative, vc1 appropriate for age. Respiratory: Airway is patent Respiratory effort is even, unlabored, Respiratory pattern is regular, symmetrical, Breath sounds are clear bilaterally. GI: Abdomen is round non-distended, Bowel sounds present X 4 quads. Abd is soft and non tender. Musculoskeletal: No deficits noted. No signs and/or symptoms reported regarding the musculoskeletal system. Injury Description: Laceration sustained to right side of the back of head is contaminated, jagged, 0.5 to 2.5 cm long, not bleeding. Vital Signs: 21:15 Weight 122.47 kg; Height 6 ft. 3 in. ; Pain 9/10; vc1 21:19 BP 125 / 84; Pulse 94; Resp 15; Temp 98.5; Pulse Ox 100% ; vc1 23:50 BP 155 / 88; Pulse 86; Resp 16; Pulse Ox 97% ; vc1 21:15 Body Mass Index 33.75 (122.47 kg, 190.5 cm) vc1 21:15 Pain Scale: Adult vc1 ED Course: 21:08 Patient arrived in ED. jj6 21:17 Triage completed. vc1 21:17 Arm band placed on left wrist. vc1 21:20 Linden Starkey MD is Attending Physician. sp4 21:21 Indira Mora FNP-C [facility] kb 23:45 Assist provider with laceration repair on right side of the back of head that was 2.5 vc1 cm. or less using sutures. Set up tray. Performed by Linden Starkey MD Patient tolerated well. 23:45 Patient did not have IV access during this emergency room visit. vc1 04/26 00:27 Deann Johnson RN is Primary Nurse. vc1 Administered Medications: 04/25 22:13 Drug: Boostrix Tdap IM 0.5 ml IM once; as a single dose Route: IM; Site: left deltoid; vc1 23:46 Follow up: Response: No adverse reaction vc1 23:45 Drug: Lidocaine Infiltration (1 %) 20 ml 20 ml Infiltration once; to bedside {Note: vc1 administered by Dr. Starkey.} Volume: 20 ml; Route: Infiltration; Site: affected area; Medication: 23:46 VIS not applicable for this client. vc1 Outcome: 23:41 Discharge ordered by . sp4 23:50 Patient left the ED. vc1 23:50 Discharged to home ambulatory, vc1 23:50 Condition: good 23:50 Discharge instructions given to patient, Instructed on discharge instructions, follow up and referral plans. wound care, Demonstrated understanding of instructions, follow-up care, wound care, Signatures: Indira Mora, REPORTER ANCHOR-C REPORTER ANCHOR-Ckb Irish Jarrett jj6 Deann Johnson RN RN vc1 Potepalov, Sergey, MD MD sp4 Corrections: (The following items were deleted from the chart) 04/26 01:09 00:49 Patient left the ED. vc1 vc1
--- NOTE | 2024-04-25 23:42 | EDPHYS ---
Physician Documentation [facility] Name: Jae Heredia Age: 43 yrs Sex: Male : 1980 Arrival Date: 04/25/2024 Time: 21:04 Bed 10 Private MD: ED Physician Linden Starkey HPI: 04/25 21:20 This 43 yrs old Male presents to ER via Ambulatory with complaints of sp4 Laceration To Head. 04/26 20:44 Patient presents with acute right posterior parietal scalp 1 cm laceration without sp4 active bleeding. Patient states he was mowing the lawn when something flew from on the lawnmower and hit him in the right scalp. This caused laceration. No LOC. Historical: - Allergies: 04/25 21:17 Prednisone; vc1 - Home Meds: 21:17 lisinopril 20 mg Oral tab once [Active]; vc1 - PMHx: 21:17 Hypertensive disorder; vc1 - PSHx: 21:17 R wrist; vc1 - Immunization history:: Client reports having NOT received the Covid vaccine. - Infectious Disease History:: Denies. - Social history:: Smoking status: Patient reports the use of cigarette tobacco products, smokes one-half pack cigarettes per day. - Family history:: not pertinent. ROS: 04/26 20:44 Constitutional: Negative for fever, chills, and weight loss, positive for right sp4 posterior scalp laceration All other systems are negative, Exam: 20:44 Constitutional: This is a well developed, well nourished patient who is awake, alert, sp4 and in no acute distress. Head/Face: Normocephalic, positive small right posterior parietal scalp laceration in vertical orientation 1 cm long. Eyes: Pupils equal round and reactive to light, extra-ocular motions intact. Lids and lashes normal. Conjunctiva and sclera are not injected. Cornea within normal limits. Periorbital areas with no swelling, redness, or edema. ENT: Nares patent. No nasal discharge, no septal abnormalities noted. Tympanic membranes are normal and external auditory canals are clear. Oropharynx with no redness, swelling, or masses, exudates, or evidence of obstruction, uvula midline. Mucous membranes moist. Neck: Trachea midline, no thyromegaly or masses palpated, and no cervical lymphadenopathy. Supple, full range of motion without nuchal rigidity, or vertebral point tenderness. Chest/axilla: Normal chest wall appearance and motion. Nontender with no deformity. No lesions are appreciated. Cardiovascular: Regular rate and rhythm with a normal S1 and S2. No gallops, murmurs, or rubs. Normal PMI, no JVD. No pulse deficits. Respiratory: Lungs have equal breath sounds bilaterally, clear to auscultation and percussion. No rales, rhonchi or wheezes noted. No increased work of breathing, no retractions or nasal flaring. Abdomen/GI: Soft, with normal bowel sounds. No distension or tympany. No guarding or rebound. No evidence of tenderness throughout. Back: No spinal tenderness. No costovertebral tenderness. Skin: Warm, dry with normal turgor. Normal color with no rashes, no lesions, and no evidence of cellulitis. MS/ Extremity: Pulses equal, no cyanosis. Neurovascular intact. Full, normal range of motion. Neuro: Awake and alert, GCS 15, oriented to person, place, time, and situation. Cranial nerves II-XII grossly intact. Motor strength 5/5 in all extremities. Sensory grossly intact. Psych: Awake, alert, with orientation to person, place and time. Behavior, mood, and affect are within normal limits Vital Signs: 04/25 21:15 Weight 122.47 kg; Height 6 ft. 3 in. ; Pain 9/10; vc1 21:19 BP 125 / 84; Pulse 94; Resp 15; Temp 98.5; Pulse Ox 100% ; vc1 23:50 BP 155 / 88; Pulse 86; Resp 16; Pulse Ox 97% ; vc1 21:15 Body Mass Index 33.75 (122.47 kg, 190.5 cm) vc1 21:15 Pain Scale: Adult vc1 Laceration: 23:40 Wound Repair of 1cm ( 0.4in ) subcutaneous laceration to right side of the back of sp4 head. Irregularly shaped.. Hemostasis noted.. Distal neuro/vascular/tendon intact. Anesthesia: Wound infiltrated with 5 mls of 1% lidocaine, Local anesthetic administered with 1% lidocaine. Wound prep: Moderate cleansing by me, Copious irrigation. Skin closed with 3 3-0 Silk using interrupted sutures and sterile technique. Dressed with left to air . Patient tolerated well. MDM: 21:21 Patient medically screened. kb 04/26 20:44 Differential diagnosis: superficial laceration, tendon injury, vascular injury. Data sp4 reviewed: vital signs, nurses notes. Consideration of Admission/Observation Escalation of care including admission/observation considered. ED course: Laceration fixed, stable for discharge home . 04/25 21:26 Order name: Dressing - Wound; Complete Time: 22:13 sp4 04/25 21:26 Order name: Gloves, Sterile; Complete Time: 22:13 sp4 04/25 21:26 Order name: Setup Suture Tray; Complete Time: 22:13 sp4 Administered Medications: 04/25 22:13 Drug: Boostrix Tdap IM 0.5 ml IM once; as a single dose Route: IM; Site: left deltoid; vc1 23:46 Follow up: Response: No adverse reaction vc1 23:45 Drug: Lidocaine Infiltration (1 %) 20 ml 20 ml Infiltration once; to bedside {Note: vc1 administered by Dr. Starkey.} Volume: 20 ml; Route: Infiltration; Site: affected area; Disposition Summary: 04/25/24 23:41 Discharge Ordered Notes: Suture removal advised after 14 days Location: Home sp4 Problem: new sp4 Symptoms: have improved sp4 Condition: Stable sp4 Diagnosis - Laceration without foreign body of scalp sp4 Followup: sp4 - With: Private Physician - When: 10 - 14 days - Reason: Recheck today's complaints Discharge Instructions: - Discharge Summary Sheet sp4 - Laceration Care, Adult, [id number] sp4 Forms: - Patient Portal Instructions sp4 Signatures: Indira Mora FNP-C FNP-Ckb Calcote, Vanessa RN RN vc1 Linden Starkey MD MD sp4
[2024-04-26 01:00] VITALS: BP 125/84; TEMP 98.5; O2SAT 100
--- OUTSIDE RECORDS SUMMARY | 2024-04-27 09:08 | XMS REPORT | Continuity of Care Document ---
Author Name Unknown Address [address] [facility] [address]. [address] [place] [address] [facility]connect Address [address] [place] [address]. [address] [place] [address] Care Team Providers Care Electronic Equipment Installer Name Role Phone PCP, PATIENT DOES NOT HAVE A Primary Care Physic mohan Unavailable Chiqui Hammond DO Attending Clinician CHIQUI HAMMOND Attending Clinician Unavailab CHIQUI Olivares Admitting Clinician Unavailab le Problems Condition Name Condition Details Condition Category Status Onset Date Resolution Date Last Treatment Date Treating Clinician Comments Source No known active problems No known active problems Disease [facility] Allergies, Adverse Reactions, Alerts Allergy Name Allergy Type Status Severity Reaction(s) Onset Date Inactive Date Treating Clinician Comments Source Predniso ne Propensi ty to adverse reaction s Active Rash 09-25 00:00: 00 [facility] PREDNISO NE DRUG INGREDI Active Rash 09-25 00:00: 00 [facility] Social History Social Habit Start Date Stop Date Quantity Comments Source History of tobacco use Cigarette Smoker [facility] Sex Assigned At [facility] Cigarettes smoked current (pack per day) - Reported 2019-09-25 00:00:00 2019-09-25 00:00:00 [facility] Cigarette pack-years 2019-09-25 00:00:00 2019-09-25 00:00:00 [facility] Alcohol intake 2019-09-25 00:00:00 2019-09-25 00:00:00 [facility] Alcohol Comment 2015-11-27 00:00:00 2015-11-27 00:00:00 occasionally [facility] Smoking Status Start Date Stop Date Source Current every day smoker 2019-09-25 00:00:00 [facility] Medications Ordered Medication Name Filled Medication Name Start Date Stop Date Current Medication? Ordering Clinician Indication Dosage Frequency Signature (SIG) Comments Components Source aspirin chewable tablet 324 mg 09-25 17:00: 00 09-25 16:02 :00 No 324mg 324 mg, Oral, ONCE, 1 dose, Tue09/25/19 at 1100, Routine [facility] ketorolac (TORADOL) injection 30 mg 09-25 16:00: 00 09-25 16:02 :00 No 30mg 30 mg, Slow IV Push, ONCE, 1 dose, Tue09/25/19 at 1000, NELLA
Fa culty member approving Restricted medication : CHIQUI HAMMOND [facility] No known medications No Un armando [facility] Vital Signs Vital Name Observation Time Observation Value Comments S ource Systolic blood pressure 2019-09-25 17:00:00 153 mm[Hg] [facility] Diastolic blood pressure 2019-09-25 17:00:00 99 mm[Hg] [facility] Heart rate 2019-09-25 17:00:00 86 /min [facility] Respiratory rate 2019-09-25 17:00:00 16 /min [facility] Oxygen saturation in Arterial blood by Pulse oximetry 2019-09-25 17:00:00 97 /min [facility] Body temperature 2019-09-25 15:24:00 36.67 Elaine [facility] Body height 2019-09-25 15:24:[address] [facility] Body weight 2019-09-25 15:24:[address] [facility] BMI 2019-09-25 15:24:00 34.37 kg/m2 [facility] Systolic blood pressure 2019-09-25 17:00:00 153 mm[Hg] [facility] Diastolic blood pressure 2019-09-25 17:00:00 99 mm[Hg] [facility] Heart rate 2019-09-25 17:00:00 86 /min [facility] Respiratory rate 2019-09-25 17:00:00 16 /min [facility] Oxygen saturation in Arterial blood by Pulse oximetry 2019-09-25 17:00:00 97 /min [place] [facility] Body temperature 2019-09-25 15:24:00 36.67 Elaine [facility] Body height 2019-09-25 15:24:[address] [facility] Body weight 2019-09-25 15:24:[address] [facility] BMI 2019-09-25 15:24:00 34.37 kg/m2 [facility] Procedures Procedure Date / Time Performed Performing Clinician Source XR CHEST 1 VW 2019-09-25 15:57:51 [facility] 2019-09-25 15:52:00 [facility] (59060[facility] (ALB,T.PRO,BILI T,BU/BC,ALT,AST,ALK PHOS) 2019-09-25 15:52:00 Chiqui Hammond [facility] BASIC METABOLIC PANEL (NA, K, CL, CO2, GLUCOSE, BUN, CREATININE, CA) 2019-09-25 15:52:00 Chiqui Hammond [facility] CBC WITH DIFFERENTIAL 2019-09-25 15:52:00 Sa ubaldo Hammond [facility] EKG-12 LEAD 2019-09-25 15:46:52 Chiqui Hammond Un [facility] NOTICE OF PRIVACY PRACTICES 2019-09-25 15:21:38 Doctor Unassigned, [place] [facility] CONSENT/REFUSAL FOR DIAGNOSIS AND TREATMENT 2019-09-25 15:21:22 Doctor Unassigned, [place] [facility] Encounters Start Date/Time End Date/Time Encounter Type Admission Type Attending Clinicians Care Facility Care Department Encounter ID Source 2019-09-25 09:24:59 2019-09-25 11:13:[address] [facility] [id number] [facility] 2019-09-25 09:24:59 2019-09-25 11:13:00 Emergency X CHIQUI HAMMOND [facility] ERT [id number] [facility] 2019-09-25 09:24:59 2019-09-25 11:13:[address] [facility] [id number] Results Test Description Test Time Test Comments Results Result Co mments Source [facility] (NA, K, CL, CO2, GLUCOSE, BUN, CREATININE, CA)2019-09-25 16:14:00* Test Item Value Reference Range Interpretation Comme nts NA (test code = 3024013666) 136 mmol/L 135-145 K (test code = 2918353850) 4.2 mmol/L 3.5-5 CL (test code = 5874566005) 99 mmol/L 98-108 CO2 TOTAL (test code = 1206991893) 30 mmol/L 23-31 AGAP (test code = 0728083220) 2-16 BUN (test code = 6897906973) 17 mg/dL 7-23 GLUCOSE (test code = 6006247168) 197 mg/dL 70-110 H CREATININE (test code = 8083808768) 1.10 mg/dL 0.6-1.25 CALCIUM (test code = 3167937968) 9.6 mg/dL 8.6-10.6 eGFR Calculation (Non-) (test code = 8198266511) mL/min/1.73m2 eGFR Calculation () (test code = 8471359536) mL/min/1.73m2 NANCY (test code = NANYC) Association of Glomerular Filtration Rate (GFR) and [...] imaging tests). Lab Interpretation (test code = 59446-6) Abnormal [facility] (ALB, T.PRO, BILI T, BU/BC, ALT, AST, ALK PHOS)2019-09-25 16:14:00* Test Item Value Reference Range Interpretation Comme nts TOTAL BILI (test code = 6981033915) 0.7 mg/dL 0.1-1.1 BILI UNCON (test code = 0768877281) 0.6 mg/dL 0.1-1.1 BILI CONJ (test code = 0557652173) 0.0 mg/dL 0-0.3 T PROTEIN (test code = 0062900428) 7.6 g/dL 6.3-8.2 ALBUMIN (test code = 6473577422) 4.4 g/dL 3.5-5 ALK PHOS (test code = 3863350967) 58 U/L 34-122 ALTv (test code = 1742-6) 25 U/L 5-50 AST(SGOT) (test code = 8645851648) 25 U/L 13-40 Lab Interpretation (test cod e = 67987-5) Normal [facility] WITH [id number] 16:03:00* Test Item Value Reference Range Interpretation Comme nts WBC (test code = 6690-2) See_Comment [Automated messa ge] The system which generated this result transmitted reference range: 4.20 - 10.70 10*3/?L. The reference range was not used to interpret this result as normal/abnormal. RBC (test code = 789-8) See_Comment [Automated [employer] ge] The system which generated this result [...] 33.6 g/dL 31.2-35 RDW-SD (test code = 04350-5) 43.7 fL 38.5-51.6 RDW-CV (test code = 788-0) 12.6 % 12.1-15.4 PLT (test code = 777-3) See_Comment [Automated [employer] ge] The system which generated this result transmitted reference range: 150 - 328 10*3/?L. The reference range was not used to interpret this result as normal/abnormal. MPV (test code = 88205-2) 10.6 fL 9.8-13 NRBC/100 WBC (test code = 5406007777) See_Comment [Automated Zolpy ssage] The system which generated this result transmitted reference range: 0.0 - 10.0 /100 WBCs. The reference range was not used to interpret this result as normal/abnormal. NRBC x10^3 (test code = 9196862686) <0.01 See_Comment [Automated [employer] ge] The system which generated this result transmitted reference range: 10*3/?L. The reference range was not used to interpret this result as normal/abnormal. GRAN MAT (NEUT) % (test code = 770-8) 64.2 % IMM GRAN % (test code = 8835987479) 0.30 % LYMPH % (test code = 736-9) 28.1 % MONO % (test code = 5905-5) 3.9 % EOS % (test code = 713-8) 3.0 % BASO % (test code = 706-2) 0.5 % GRAN MAT x10^3(ANC) (test code = 1890870525) 4.76 10*3/uL 1.99-6.95 IMM GRAN x10^3 (test code = 3184622018) <0.03 0-0.06 LYMPH x10^3 (test code = 731-0) 2.08 10*3/uL 1.09-3.23 MONO x10^3 (test code = 742-7) 0.29 10*3/uL 0.36-1.02 L EOS x10^3 (test code = 711-2) 0.22 10*3/uL 0.06-0.53 BASO x10^3 (test code = 704-7) 0.04 10*3/uL 0.01-0.09 Lab Interpretation (test code = 16545-0) Abnormal [facility] 1 [id number] 16:00:47HISTORY: Chest pain. TECHNIQUE: Portable AP erect view of the chest is obtained. No prior cheststudy available for comparison. FINDINGS: No acute pneumonia. No pneumothorax or pleural effusion orpulmonary congestion detected. Cardiac size is within normal limits. CONCLUSIONS: No signs of acute cardiopulmonary disease.[facility], Radiant Results Inft User - 09/25/2019 10:01 AM CSTHISTORY: Chest pain.TECHNIQUE: Portable AP erect view of the chest is obtained. No prior cheststudy available for comparison.FINDINGS: No acute pneumonia. No pneumothorax or pleural effusion orpulmonary congestion detected.Cardiac size is within normal limits. CONCLUSIONS: No signs of acute cardiopulmonary disease. [facility]"
== END 2024-04-26 00:49 | disposition home or self-care (01) ==
LOC: ER 21:04
PROC: 0JQ03ZZ Repair Scalp Subcutaneous Tissue and Fascia, Percutaneous Approach (ICD-10-PCS; principal; 2024-04-25)
DX: S01.01XA Laceration without foreign body of scalp, initial encounter (principal); W20.8XXA Other cause of strike by thrown, projected or falling object, initial encounter; Y93.H9 Activity, other involving exterior property and land maintenance, building and construction; I10 Essential (primary) hypertension; F17.210 Nicotine dependence, cigarettes, uncomplicated; Z79.899 Other long term (current) drug therapy; Z88.8 Allergy status to other drugs, medicaments and biological substances
CPT/HCPCS: 12001; 96372; 99284; J2001

== ENCOUNTER 2024-09-24 10:55 | Emergency (ER) | payer OTHER, SELFPAY ==
--- OUTSIDE RECORDS SUMMARY | 2024-09-24 10:58 | XMS REPORT | Continuity of Care Document ---
Author Name Unknown Address [address] [place] [address] [facility] thconnect Address [address] [place] [address] Care Team Providers Care Data Processing Manager Name Role Phone PCP, PATIENT DOES NOT HAVE A Primary Care Physic mohan Unavailable Chiqui Hammond DO Attending Clinician [phone] CHIQUI HAMMOND Attending Clinician Unavailab CHIQUI Olivares Admitting Clinician Unavailab le Problems Condition Name Condition Details Condition Category Status Onset Date Resolution Date Last Treatment Date Treating Clinician Comments Source No known active problems No known active problems Disease [facility] Allergies, Adverse Reactions, Alerts Allergy Name Allergy Type Status Severity Reaction(s) Onset Date Inactive Date Treating Clinician Comments Source Predniso ne Propensi ty to adverse reaction s Active Rash 09-25 00:00: 00 [facility] PREDNISO NE DRUG INGREDI Active Rash 09-25 00:00: 00 [facility] Social History Social Habit Start Date Stop Date Quantity Comments Source History of tobacco use Cigarette Smoker [facility] Sex Assigned At [facility] Cigarettes smoked current (pack per day) - Reported 2019-09-25 00:00:00 2019-09-25 00:00:00 [facility] Cigarette pack-years 2019-09-25 00:00:00 2019-09-25 00:00:00 [facility] Alcohol intake 2019-09-25 00:00:00 2019-09-25 00:00:00 [facility] Alcohol Comment 2015-11-27 00:00:00 2015-11-27 00:00:00 occasionally [facility] Smoking Status Start Date Stop Date Source Current every day smoker 2019-09-25 00:00:00 [facility] Medications Ordered Medication Name Filled Medication Name Start Date Stop Date Current Medication? Ordering Clinician Indication Dosage Frequency Signature (SIG) Comments Components Source aspirin chewable tablet 324 mg 09-25 17:00: 00 09-25 16:02 :00 No 324mg 324 mg, Oral, ONCE, 1 dose, Tue09/25/19 at 1100, Routine [facility] ketorolac (TORADOL) injection 30 mg 09-25 16:00: 00 09-25 16:02 :00 No 30mg 30 mg, Slow IV Push, ONCE, 1 dose, Tue09/25/19 at 1000, NELLA
Fa culty member approving Restricted medication : CHIQUI HAMMOND [facility] No known medications No Un armando [facility] Vital Signs Vital Name Observation Time Observation Value Comments S ource Systolic blood pressure 2019-09-25 17:00:00 153 mm[Hg] [facility] Diastolic blood pressure 2019-09-25 17:00:00 99 mm[Hg] [facility] Heart rate 2019-09-25 17:00:00 86 /min [facility] Respiratory rate 2019-09-25 17:00:00 16 /min [facility] Oxygen saturation in Arterial blood by Pulse oximetry 2019-09-25 17:00:00 97 /min [facility] Body temperature 2019-09-25 15:24:00 36.67 Elaine [facility] Body height 2019-09-25 15:24:00 190.5 cm [facility] Body weight 2019-09-25 15:24:00 124.739 kg [facility] BMI 2019-09-25 15:24:00 34.37 kg/m2 [facility] Systolic blood pressure 2019-09-25 17:00:00 153 mm[Hg] [facility] Diastolic blood pressure 2019-09-25 17:00:00 99 mm[Hg] [facility] Heart rate 2019-09-25 17:00:00 86 /min [facility] Respiratory rate 2019-09-25 17:00:00 16 /min [facility] Oxygen saturation in Arterial blood by Pulse oximetry 2019-09-25 17:00:00 97 /min [employer] [facility] Body temperature 2019-09-25 15:24:00 36.67 Elaine [facility] Body height 2019-09-25 15:24:00 190.5 cm [facility] Body weight 2019-09-25 15:24:00 124.739 kg [facility] BMI 2019-09-25 15:24:00 34.37 kg/m2 [facility] Procedures Procedure Date / Time Performed Performing Clinician Source XR CHEST 1 VW 2019-09-25 15:57:51 [facility] 2019-09-25 15:52:00 [facility] (64793) (ALB,T.PRO,BILI T,BU/BC,ALT,AST,ALK PHOS) 2019-09-25 15:52:00 Chiqui Hammond [facility] BASIC METABOLIC PANEL (NA, K, CL, CO2, GLUCOSE, BUN, CREATININE, CA) 2019-09-25 15:52:00 Chiqui Hammond [facility] CBC WITH DIFFERENTIAL 2019-09-25 15:52:00 Sa ubaldo Hammond [facility] EKG-12 LEAD 2019-09-25 15:46:52 Chiqui Hammond Un [facility] NOTICE OF PRIVACY PRACTICES 2019-09-25 15:21:38 Doctor Unassigned, [place] [facility] CONSENT/REFUSAL FOR DIAGNOSIS AND TREATMENT 2019-09-25 15:21:22 Doctor Unassigned, [place] [facility] Encounters Start Date/Time End Date/Time Encounter Type Admission Type Attending Clinicians Care Facility Care Department Encounter ID Source 2019-09-25 09:24:59 2019-09-25 11:13:00 Emergency Chiqui Hammond [facility] [id number] 2019-09-25 09:24:59 2019-09-25 11:13:00 Emergency Chiqui Hammond [facility] [id number] [facility] 2019-09-25 09:24:59 2019-09-25 11:13:00 Emergency X CHIQUI HAMMOND [facility] ERT [id number] [facility] Results Test Description Test Time Test Comments Results Result Co mments Source [facility] (NA, K, CL, CO2, GLUCOSE, BUN, CREATININE, CA)2019-09-25 16:14:00* Test Item Value Reference Range Interpretation Comme nts NA (test code = 5798409597) 136 mmol/L 135-145 K (test code = 3981697740) 4.2 mmol/L 3.5-5 CL (test code = 4336124148) 99 mmol/L 98-108 CO2 TOTAL (test code = 4227577209) 30 mmol/L 23-31 AGAP (test code = 4519016984) 2-16 BUN (test code = 3213830086) 17 mg/dL 7-23 GLUCOSE (test code = 8752707684) 197 mg/dL 70-110 H CREATININE (test code = 0147104704) 1.10 mg/dL 0.6-1.25 CALCIUM (test code = 7021393204) 9.6 mg/dL 8.6-10.6 eGFR Calculation (Non-) (test code = 2305482236) mL/min/1.73m2 eGFR Calculation () (test code = 7543235564) mL/min/1.73m2 NANCY (test code = NANCY) Association [...] imaging tests). Lab Interpretation (test code = 82625-8) [facility]normal [facility] (ALB, T.PRO, BILI T, BU/BC, ALT, AST, ALK PHOS)2019-09-25 16:14:00* Test Item Value Reference Range Interpretation Comme nts TOTAL BILI (test code = 5670528649) 0.7 mg/dL 0.1-1.1 BILI UNCON (test code = 9893335618) 0.6 mg/dL 0.1-1.1 BILI CONJ (test code = 7622391020) 0.0 mg/dL 0-0.3 T PROTEIN (test code = 6303777095) 7.6 g/dL 6.3-8.2 ALBUMIN (test code = 0405386456) 4.4 g/dL 3.5-5 ALK PHOS (test code = 1231692976) 58 U/L 34-122 ALTv (test code = 1742-6) 25 U/L 5-50 AST(SGOT) (test code = 0316927218) 25 U/L 13-40 Lab Interpretation (test cod e = 31464-6) Normal [facility] WITH [id number] 16:03:00* Test Item Value Reference Range Interpretation Comme nts WBC (test code = 6690-2) See_Comment [Automated messa ge] The system which generated this result transmitted reference range: 4.20 - 10.70 10*3/?L. The reference range was not used to interpret this result as normal/abnormal. RBC (test code = 789-8) See_Comment [Automated Echoing Greena ge] The system which generated this result [...] 33.6 g/dL 31.2-35 RDW-SD (test code = 03366-9) 43.7 fL 38.5-51.6 RDW-CV (test code = 788-0) 12.6 % 12.1-15.4 PLT (test code = 777-3) See_Comment [Automated Echoing Greena ge] The system which generated this result transmitted reference range: 150 - 328 10*3/?L. The reference range was not used to interpret this result as normal/abnormal. MPV (test code = 03211-3) 10.6 fL 9.8-13 NRBC/100 WBC (test code = 8301021972) See_Comment [Automated Z2 ssage] The system which generated this result transmitted reference range: 0.0 - 10.0 /100 WBCs. The reference range was not used to interpret this result as normal/abnormal. NRBC x10^3 (test code = 1073455924) <0.01 See_Comment [Automated Echoing Greena ge] The system which generated this result transmitted reference range: 10*3/?L. The reference range was not used to interpret this result as normal/abnormal. GRAN MAT (NEUT) % (test code = 770-8) 64.2 % IMM GRAN % (test code = 0766545504) 0.30 % LYMPH % (test code = 736-9) 28.1 % MONO % (test code = 5905-5) 3.9 % EOS % (test code = 713-8) 3.0 % BASO % (test code = 706-2) 0.5 % GRAN MAT x10^3(ANC) (test code = 5653385340) 4.76 10*3/uL 1.99-6.95 IMM GRAN x10^3 (test code = 3836381632) <0.03 0-0.06 LYMPH x10^3 (test code = 731-0) 2.08 10*3/uL 1.09-3.23 MONO x10^3 (test code = 742-7) 0.29 10*3/uL 0.36-1.02 L EOS x10^3 (test code = 711-2) 0.22 10*3/uL 0.06-0.53 BASO x10^3 (test code = 704-7) 0.04 10*3/uL 0.01-0.09 Lab Interpretation (test code = 45088-0) Abnormal [facility] 1 [id number] 16:00:47HISTORY: Chest pain. TECHNIQUE: Portable AP erect view of the chest is obtained. No prior cheststudy available for comparison. FINDINGS: No acute pneumonia. No pneumothorax or pleural effusion orpulmonary congestion detected. Cardiac size is within normal limits. CONCLUSIONS: No signs of acute cardiopulmonary disease.[facility], Radiant Results Inft User - 09/25/2019 10:01 AM CSTHISTORY: Chest pain.TECHNIQUE: Portable AP erect view of the chest is obtained. No prior cheststudy available for comparison.FINDINGS: No acute pneumonia. No pneumothorax or pleural effusion orpulmonary congestion detected.Cardiac size is within normal limits. CONCLUSIONS: No signs of acute cardiopulmonary disease. [facility]"
--- NOTE | 2024-09-24 12:33 | RAD REPORT ---
Exam:Ankle Left 3 View HISTORY: left ankle pain FINDINGS: Soft tissue swelling lateral ankle. Small bony density adjacent to the lateral malleolus could represent a avulsed fracture fragment. Thi s could be acute or chronic. No dislocation
--- NOTE | 2024-09-24 12:54 | ER ---
Nurse's Notes [facility] Name: Jae Heredia Age: 44 yrs Sex: Male : 1980 Arrival Date: 09/24/2024 Time: 10:55 Bed 10 Private MD: Diagnosis: Fracture of lateral malleolus-Avulsion fracture Presentation: 09/24 11:12 Chief complaint: Patient states: stepped off porch wrong, rolled my left ankle X 2 days iw ago. Coronavirus screen: At this time, the client does not indicate any symptoms associated with coronavirus-19. Ebola Screen: No symptoms or risks identified at this time. Initial Sepsis Screen: Does the patient meet any 2 criteria? No. Patient's initial sepsis screen is negative. Does the patient have a suspected source of infection? No. Patient's initial sepsis screen is negative. Risk Assessment: Do you want to hurt yourself or someone else? Patient reports no desire to harm self or others. 11:12 Method Of Arrival: Ambulatory iw 11:12 Acuity: KELLIE 4 iw 12:15 Onset of symptoms was September 24, 2024. iw Triage Assessment: 12:15 General: Appears in no apparent distress. Behavior is calm. iw Historical: - Allergies: 11:13 Prednisone; iw 11:13 Albuterol; iw - Home Meds: 11:13 lisinopril 20 mg Oral tab once [Active]; iw - PMHx: 11:13 Hypertensive disorder; iw - PSHx: 11:13 R wrist; iw - Immunization history:: Adult Immunizations not up to date. - Infectious Disease History:: Denies. - Social history:: Smoking status: Patient reports the use of cigarette tobacco products, smokes one-half pack cigarettes per day. - Family history:: not pertinent. - Hospitalizations: : No recent hospitalization is reported. Screenin:15 [facility] ED Fall Risk Assessment (Adult) History of falling in the last 3 months, iw including since admission Yes- single mechanical fall (1 pt) Confusion or Disorientation No (0 pts) Intoxicated or Sedated No (0 pts) Impaired Gait No (0 pts) Mobility Assist Device Used No (0 pt) Altered Elimination No (0 pt) Score/Fall Risk Level 0 - 2 = Low Risk Oriented to surroundings. Abuse screen: Denies threats or abuse. Denies injuries from another. Nutritional screening: No deficits noted. Tuberculosis screening: No symptoms or risk factors identified. Assessment: 12:15 General: Appears in no apparent distress. Behavior is calm, cooperative. Pain: iw Complains of pain in left lateral ankle, left medial ankle and anterior aspect of left ankle Pain currently is 8 out of 10 on a pain scale. Neuro: Level of Consciousness is awake, alert, obeys commands, Oriented to person, place, time, situation, Moves all extremities. Cardiovascular: Patient's skin is warm and dry. Respiratory: Respiratory effort is even, Respiratory pattern is regular. Musculoskeletal: Range of motion: limited in left ankle. Vital Signs: 11:12 BP 141 / 95; Pulse 89; Resp 18; Temp 97.6; Pulse Ox 99% on R/A; Weight 127.01 kg; iw Height 6 ft. 3 in. ; Pain 10/10; 11:12 Body Mass Index 35.00 (127.01 kg, 190.5 cm) iw 11:12 Pain Scale: Adult iw ED Course: 10:57 Patient arrived in ED. ra3 11:01 Austyn Angeles MD is Attending Physician. rn 11:13 Triage completed. iw 11:14 Arm band placed on. iw 12:15 Patient has correct armband on for positive identification. Provided Education on: . iw 12:26 XRAY Ankle LEFT 3 view In Process Unspecified. EDMS 12:45 Radha Hammond, RN is Primary Nurse. iw 12:53 Jus Haynes MD is Referral Physician. rn 13:30 No provider procedures requiring assistance completed. Patient did not have IV access iw during this emergency room visit. Administered Medications: 13:32 Drug: [place] PO 10 mg-325 mg 1 tabs PO once Route: PO; iw 13:32 Follow up: Response: Medication administered at discharge. iw 13:32 Drug: Ibuprofen PO 800 mg PO once Route: PO; iw 13:32 Follow up: Response: Medication administered at discharge. iw Medication: 12:25 VIS not applicable for this client. iw Outcome: 12:54 Discharge ordered by . rn 13:31 Discharged to home ambulatory, with family, iw 13:31 Condition: good 13:31 Discharge instructions given to 13:32 Patient left the ED. iw Signatures: Dispatcher [employer] EDMS Radha Hammond RN RN iw Austyn Angeles MD MD rn Alva, Kiki ra3
--- NOTE | 2024-09-24 12:54 | EDPHYS ---
Physician Documentation [facility] Name: Jae Heredia Age: 44 yrs Sex: Male : 1980 Arrival Date: 09/24/2024 Time: 10:55 Bed 10 Private MD: ED Physician Austyn Angeles HPI: 09/24 12:06 This 44 yrs old Male presents to ER via Ambulatory with complaints of Ankle Injury. rn 12:06 The patient presents with decreased range of motion, an injury, pain. The complaints rn affect the left ankle. Onset: The symptoms/episode began/occurred last night. Associated signs and symptoms: Pertinent positives: swelling, Pertinent negatives: calf tenderness, numbness, tingling, weakness. Modifying factors: The symptoms are alleviated by elevation of extremity, the symptoms are aggravated by weight bearing. Severity of symptoms: At their worst the symptoms were moderate, in the emergency department the symptoms are unchanged. The patient has not experienced similar symptoms in the past. Patient reports misstep and rolled left ankle last night. Was wearing boots. Reports pain to the left lateral ankle but nothing more proximal or in the foot. No open wounds.. Historical: - Allergies: 11:13 Prednisone; iw 11:13 Albuterol; iw - Home Meds: 11:13 lisinopril 20 mg Oral tab once [Active]; iw - PMHx: 11:13 Hypertensive disorder; iw - PSHx: 11:13 R wrist; iw - Immunization history:: Adult Immunizations not up to date. - Infectious Disease History:: Denies. - Social history:: Smoking status: Patient reports the use of cigarette tobacco products, smokes one-half pack cigarettes per day. - Family history:: not pertinent. - Hospitalizations: : No recent hospitalization is reported. ROS: 12:06 Constitutional: Negative for fever, chills, and weight loss, MS/Extremity: Positive for rn left ankle injury and swelling Neuro: Negative for numbness or tingling or weakness Exam: 12:06 Constitutional: This is a well developed, well nourished patient who is awake, alert, rn and in no acute distress. MS/ Extremity: Left lateral malleolus tenderness with swelling. No open wounds or puncture wounds. No discoloration. No tenderness proximal to ankle or proximal tib-fib or knee. No tenderness of the foot proper. Vital Signs: 11:12 BP 141 / 95; Pulse 89; Resp 18; Temp 97.6; Pulse Ox 99% on R/A; Weight 127.01 kg; iw Height 6 ft. 3 in. ; Pain 06/21; 11:12 Body Mass Index 35.00 (127.01 kg, 190.5 cm) iw 11:12 Pain Scale: Adult iw MDM: 11:01 Medical Screening Exam initiated rn 12:52 Differential diagnosis: fracture, sprain. Data reviewed: vital signs, nurses notes, rn radiologic studies, plain films, and as a result, I will discharge patient. Counseling: I had a detailed discussion with the patient and/or guardian regarding the historical points, exam findings, and any diagnostic results supporting the discharge/admit diagnosis, radiology results, the need for outpatient follow up, to return to the emergency department if symptoms worsen or persist or if there are any questions or concerns that arise at home. Response to treatment: the patient's symptoms have mildly improved after treatment, and as a result, I will discharge patient. Special discussion: I discussed with the patient/guardian in detail that at this point there is no indication for admission to the hospital. It is understood, however, that if the symptoms persist or worsen the patient needs to return immediately for re-evaluation. Further emergent ED testing is not indicated at this point in time. I discussed with the patient/guardian in detail the need to arrange with the PCP or specialist further outpatient testing, MRI, Based on the history and exam findings, there is no indication for further emergent testing or inpatient evaluation. I discussed with the patient/guardian the need to see the orthopedic surgeon for further evaluation of the symptoms. ED course: X-ray images show possible avulsion fracture of the lateral malleolus per my interpretation. No gross or complete fracture otherwise. No dislocation. Will discharge home with Ortho follow-up for MRI as most likely avulsion fracture. Placed in boot and will prescribe pain medication as needed.. 09/24 11:14 Order name: XRAY Ankle LEFT 3 view; Complete Time: 12:47 rn 09/24 12:48 Order name: Walking boot; Complete Time: 13:32 rn Administered Medications: 13:32 Drug: [place] PO 10 mg-325 mg 1 tabs PO once Route: PO; iw 13:32 Follow up: Response: Medication administered at discharge. iw 13:32 Drug: Ibuprofen PO 800 mg PO once Route: PO; iw 13:32 Follow up: Response: Medication administered at discharge. 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
[2024-09-24] MEDS ORDERED: HYDROCODONE/APAP 10/325 TAB ONE (13:17)
[2024-09-24] MEDS ORDERED: IBUPROFEN 400 MG TAB ONE (13:17)
[2024-09-25 16:49] VITALS: BP 141/95; TEMP 97.6; O2SAT 99
== END 2024-09-24 13:32 | disposition home or self-care (01) ==
LOC: ER 10:55
DX: S82.62XA Displaced fracture of lateral malleolus of left fibula, initial encounter for closed fracture (principal); F17.210 Nicotine dependence, cigarettes, uncomplicated
CPT/HCPCS: 99283